=== PATIENT | male | born 1950 | race Caucasian/White ===

== ENCOUNTER → 2016-07-10 | Outpatient (CLI) | payer MEDICARE ==
[~2016-07-10] MED LIST: ADVA230A INH; ALBU17IN INH; ASPI1TAB PO; ATOR40TA PO; BENZ100C5 PO; BISO5TAB5 PO; FLON1SPR; HIZE20IN SC; KEPP1TAB2 PO; NEXI20CA PO; NITR4TASL SL; SING10TA32 PO; XYZA5TAB2 PO; ZOLP10TA2 PO
[2016-07-10 10:35] LABS: MEAN CORPUSCULAR HGB CONC 33.4 g/dl (32.0-36.5); MEAN CORPUSCULAR VOLUME 89.8 fl (80.0-96.0); RED CELL DISTRIBUTION WIDTH 13.6 % (11.5-14.5); WHITE BLOOD COUNT 7.1 K/mm3 (4.0-10.0)
[2016-07-10 11:07] LABS: ALBUMIN 3.3 GM/DL (3.2-5.2); ALBUMIN/GLOBULIN RATIO 0.92 (1.00-1.93); ALKALINE PHOSPHATASE 72 U/L (45-117); ALT/SGPT 31 U/L (12-78); ANION GAP 9 MEQ/L (8-16); AST/SGOT 29 U/L (15-37); BLOOD UREA NITROGEN 15 MG/DL (7-18); CALCIUM LEVEL 9.1 MG/DL (8.8-10.2); CARBON DIOXIDE LEVEL 27 MEQ/L (21-32); CHLORIDE LEVEL 108 MEQ/L (98-107); CHOLESTEROL LEVEL 122 MG/DL (<200); CREATININE FOR GFR 0.97 MG/DL (0.70-1.30); GLOMERULAR FILTRATION RATE > 60.0 (>49); GLUCOSE, FASTING 99 MG/DL (80-110); POTASSIUM SERUM 4.2 MEQ/L (3.5-5.1); SODIUM LEVEL 144 MEQ/L (136-145); TOTAL PROTEIN 6.9 GM/DL (6.4-8.2); TRIGLYCERIDES LEVEL 80 MG/DL (<150)
== END ==
LOC: M LAB 09:56
PROVIDERS: ATTEND Family Medicine
DX: R53.83 Other fatigue (principal); Z79.899 Other long term (current) drug therapy

== ENCOUNTER → 2016-09-21 | Outpatient (REF) | payer MEDICARE | LOC: M SFHCLERA 12:48 | PROVIDERS: ATTEND Nurse Practitioner Family | DX: R50.9 Fever, unspecified (principal) ==

== ENCOUNTER → 2016-09-21 | Outpatient (CLI) | payer MEDICARE ==
--- NOTE | 2016-09-21 14:09 | REP ---
CHEST X-RAY: Three views. HISTORY: Wheezing. COMPARISON STUDY: January 12, 2016. FINDINGS: There is a patchy area of increased density in the right middle lobe on today's radiograph consistent with infiltrate or discoid atelectasis. Lung webster are otherwise clear and unchanged. Pleural angles are sharp. Heart is not enlarged. An old healed fracture of the right clavicle is again seen. There are degenerative changes in the thoracic spine. IMPRESSION: Right middle lobe density compatible with infiltrate versus atelectasis. Signed by Tommie Ortega MD 09/21/2016 05:38 P
== END ==
LOC: M LRY 12:48
PROVIDERS: ATTEND Nurse Practitioner Family
DX: R06.2 Wheezing (principal)
CPT/HCPCS: 71020; 87880; 94640; G0463

== ENCOUNTER → 2016-10-21 | Outpatient (CLI) | payer MEDICARE ==
--- NOTE | 2016-10-21 12:33 | REP ---
REASON: History of pneumonia. COMPARISON: 09/21/2016 The patchy opacity in the right middle lobe has resolved. Mild basilar fibrotic change is noted status quo. Cardiomediastinal silhouette is unchanged. No new abnormal opacities have developed. There is no change in the osseous structures. IMPRESSION: No evidence of acute cardiopulmonary disease. Findings as described above. Signed by Manny Allison DO 10/21/2016 02:09 P
== END ==
LOC: M LRY 11:32
PROVIDERS: ATTEND Family Medicine
DX: J18.9 Pneumonia, unspecified organism (principal)

== ENCOUNTER → 2016-12-18 | Outpatient (CLI) | payer MEDICARE | LOC: M LRY 12:14 | PROVIDERS: ATTEND Physician Assistant Medical | DX: R56.9 Unspecified convulsions (principal) ==

== ENCOUNTER 2017-01-12 10:56 | Observation (INO) | payer MEDICARE ==
[~2017-01-12] VITALS: Ht 170.2 cm; Wt 87.7 kg
[~2017-01-12 10:56] MED LIST changes: -ATOR40TA PO; +ATOR40TA75 PO
--- NOTE | 2017-01-12 12:09 | REP ---
CT Head without contrast HISTORY: Infarction COMPARISON: 03/18/10 There is no intraparenchymal hemorrhage, acute infarct, mass or midline shift. The ventricular system is normal in appearance. The cortical sulci are dilated consistent with minimal volume loss. There is no extra cerebral collection. There is no fracture. The visualized sinuses are clear. IMPRESSION: Minimal volume loss. Signed by Danny Montague MD 01/12/2017 12:00 P
[2017-01-12 12:32] LABS: BASO # 0.1 K/mm3 (0.0-0.2); BASO % 0.7 % (0.0-1.0); EOS # 0.1 K/mm3 (0.0-0.50); EOS % 1.3 % (0.0-3.0); LARGE UNSTAINED CELL # 0.2 K/mm3 (0.0-0.4); LARGE UNSTAINED CELL % 2.6 % (0.0-4.0); LYMPH # 1.7 K/mm3 (1.5-4.5); LYMPH % 18.6 % (24.0-44.0); MEAN CORPUSCULAR HEMOGLOBIN 31.5 pg (27.0-33.0); MEAN CORPUSCULAR VOLUME 92.6 fl (80.0-96.0); MONO # 0.6 K/mm3 (0.0-0.8); MONO % 6.7 % (0.0-5.0); NEUTROPHILS # 6.5 K/mm3 (1.8-7.7); PLATELET COUNT, AUTOMATED 252 k/mm3 (150-450); RED CELL DISTRIBUTION WIDTH 13.5 % (11.5-14.5); WHITE BLOOD COUNT 9.3 K/mm3 (4.0-10.0)
[2017-01-12 12:38] LABS: ALBUMIN 3.3 GM/DL (3.2-5.2); ALBUMIN/GLOBULIN RATIO 0.79 (1.00-1.93); ALKALINE PHOSPHATASE 71 U/L (45-117); ALT/SGPT 37 U/L (12-78); ANION GAP 7 MEQ/L (8-16); AST/SGOT 29 U/L (15-37); BILIRUBIN,DIRECT 0.1 MG/DL (0.0-0.2); BILIRUBIN,TOTAL 0.6 MG/DL (0.2-1.0); BLOOD UREA NITROGEN 21 MG/DL (7-18); CALCIUM LEVEL 8.8 MG/DL (8.8-10.2); CARBON DIOXIDE LEVEL 28 MEQ/L (21-32); CHLORIDE LEVEL 106 MEQ/L (98-107); CREATININE FOR GFR 1.09 MG/DL (0.70-1.30); GLOMERULAR FILTRATION RATE > 60.0 (>49); GLUCOSE, FASTING 100 MG/DL (80-110); POTASSIUM SERUM 3.2 MEQ/L (3.5-5.1); SODIUM LEVEL 141 MEQ/L (136-145); TOTAL PROTEIN 7.5 GM/DL (6.4-8.2)
--- NOTE | 2017-01-12 12:50 | REP ---
Clinical: Cough . Comparison: 10/21/2016 . Findings: The mediastinum and cardiac silhouette are stable and within normal limits for portable technique. The lung webster are clear without acute consolidation, effusion, or pneumothorax. Skeletal structures are intact. Impression: No acute cardiopulmonary process appreciated. Signed by Bill Quezada MD 01/12/2017 12:41 P
[2017-01-12] MEDS ORDERED: POTASSIUM CHLORIDE 10 MEQ SR TABLET PO ONE (13:15)
--- NOTE | 2017-01-12 16:30 | REP ---
MRI BRAIN WITHOUT CONTRAST: HISTORY: Weakness. COMPARISON: MR 04/03/[address] 01/12/2017. Scattered punctate areas of increased signal intensity on T2 weighted images are present i nt periventricular and subcortical white matter. This represents small vessel ischemic disease. There is no intraparenchymal hemorrhage, infarct, mass or midline shift. The ventricular system is normal in appearnace. The cortical sulci are dilated consistent with minimal volume loss. There is no extracerebral collection. The sinuses are clear. IMPRESSION:1. Minimal small vessel ischemic disease. 2. Minimal volume loss. Signed by Danny Montague MD 01/15/2017 08:13 A
[2017-01-12] MEDS ORDERED: TERB250T12 PO (18:13)
[2017-01-12] MEDS ORDERED: LEVE750XR PO (18:13)
[2017-01-12] MEDS ORDERED: MAGN400T PO (18:13)
[2017-01-12] MEDS ORDERED: BENZ100C5 PO (18:13)
[2017-01-12] MEDS ORDERED: VITMTA PO (18:13)
[2017-01-12] MEDS ORDERED: PLAV1TAB2 PO (18:13)
[2017-01-12] MEDS ORDERED: MAGNESIUM OXIDE 400 MG TAB (MAG-OX) PO ONE (18:15)
[2017-01-12] MEDS ORDERED: ALBUTEROL 90 MCG/ACT 8GM HFA INHALER INH PRN (18:30)
[2017-01-12] MEDS ORDERED: NITROGLYCERIN 0.4 MG SUBL TABLET SL PRN (18:30)
[2017-01-12] MEDS ORDERED: zolPIDEM TARTRATE 10MG TAB PO PRN (18:30)
--- NOTE | 2017-01-12 20:08 | HPE ---
DATE OF ADMISSION: 01/12/2017 CHIEF COMPLAINT: 66-year-old gentleman coming in complaining of "off balance" and "quiet in his head". HISTORY OF PRESENT ILLNESS: This is a 66-year-old gentleman with significant past medical history of coronary artery disease, sees Dr. Potter. History of seizures in the past. Normally sees Dr. Sheldon with comorbidities of immunodeficiency, he is on Hizentra injection, history of asthma, chronic cough, gastroesophageal reflux disease (GERD), who presents complaining of being "off balance", fatigue and "having a quiet in his head" with two episodes, one two days ago and the second episode early this morning while he was having breakfast. The patient denies dizziness but had described this discomfort as lightheadedness and "his head felt weird". The patient felt fatigued and felt that he may have had some shakes, but denies any prodrome such as fever, chills, abdominal pain, diarrhea or dysuria. Although, he did have an episode of feeling like he was going to lose his bowel this morning when he had the episode, but he did not. He did have some nausea, but no vomiting. He has chronic cough and sputum production which is unchanged. The patient denies having any precipitating factors such as chest pain, shortness of breath, headache. He did have a history of pneumonia two months ago. Currently not on any antibiotics other than antifungal medication for nail fungus. The patient's family mentioned that he has been on this medication in the past for a year, did well, but unfortunately he had to resume recently. The patient states that this occurred for about an hour, these two episodes. The patient was evaluated in the emergency room and noted to have slightly elevated nonspecific positive troponin 0.11, which was unchanged after [address] Potter was consulted by the ER physician who recommended admission to the hospital for further evaluation and serial cardiac enzymes. Otherwise, did not recommend transfer or catheterization at this time. I have confirmed this with Dr. Caldera who is interrelated special education teacher currently. The patient's head CT was negative for any acute process and MRI done also did not show any significant findings. The patient is being admitted for further evaluation and treatment. REVIEW OF SYSTEMS: 10 point review of system is negative other than those described in the HPI. PAST MEDICAL HISTORY: Significant for coronary artery disease, sees Dr. Potter as outpatient. Seizure history. Sees Dr. Sheldon as an outpatient. Immunodeficiency. On therapy. History of asthma and chronic cough. Gastroesophageal reflux disease. PAST SURGICAL HISTORY: Includes: Cholecystectomy. Hernia repair. Nasal surgery. SOCIAL HISTORY: The patient denies smoking or IV drug abuse. Socially he drinks alcohol but not dependent on them. FAMILY MEDICAL HISTORY: Noncontributory at this time. ALLERGIES: The patient has allergies to Demerol which causes sweating and vomiting. HOME MEDICATIONS: - albuterol 2 puffs four times a day as needed for shortness of breath - aspirin 81 mg by mouth daily - atorvastatin 40 mg at bedtime - benzonatate 100 mg by mouth three times a day as needed for cough - benzonatate 100 mg by mouth at bedtime - bisoprolol 5 mg by mouth daily - Plavix 75 mg by mouth daily - Nexium 20 mg by mouth twice a day - Flonase 2 sprays at bedtime - Hizentra 16 mg subcutaneous every 10 days - Keppra 750 mg by mouth twice a day - Xyzal by mouth 5 mg at bedtime - magnesium oxide 800 mg by mouth daily - montelukast Singulair 10 mg at bedtime - multivitamin 1 tablet by mouth daily - nitroglycerin 0.4 mg every 5 minutes as needed for chest pain - Advair 230/21 mcg 2 puffs twice a day - terbinafine 250 mg by mouth daily - Zolpidem 10 mg by mouth at bedtime as needed for sleep PHYSICAL EXAMINATION: VITAL SIGNS: Last known temperature 97.6, last heart rate of 59. Saturating 92 to 97%. Blood pressure, last known is 138/77, respiratory rate on my examination is 14. HEENT: Normocephalic, no trauma. Examination of the eyes, nose and throat is within normal limits. Pupils equal, round, and reactive to light and accommodation. Mucous is moist. Neck is supple. No tracheal deviation. CARDIAC: S1, S2. Regular rate and rhythm. Pulses present. LUNGS: Equal air entry. Did not hear any wheezes, rales or rhonchi. ABDOMEN: Soft, nontender. Bowel sounds present. LOWER EXTREMITIES: No significant pitting edema. Capillary refill present in all four extremities. SKIN: Intact. Warm to touch. Afebrile. The patient is currently awake, alert, oriented times three. Cranial nerves grossly intact. Motor and sensory is intact. Normal mood and affect for current situation. Family member at the bedside and he is also hard of hearing. DIAGNOSTIC STUDIES: The patient had WBC, hemoglobin and hematocrit and platelets all within normal. Complete metabolic profile within normal, except potassium 3.2, BUN of 21. Lipase is normal. Cardiac enzyme is within normal except for troponin of 0.11 and repeat troponin is 0.11 as well. CRP is pending at this time. Magnesium is within normal. Urinalysis is pending at this time. Microbiology: Urine culture is pending. The patient had CT of the head, as per radiology showed minimal volume loss, but there is no intraparenchymal hemorrhage, acute infarct, mass or midline shift. The ventricular system is normal in appearance. The cortical sulci are dilated consistent with minimal volume loss. There is no extracerebral collection. There is no fracture. The visualized sinuses are clear as well. The patient also had a chest x-ray, as per radiology showed no acute cardiopulmonary process. The patient also had an MRI of the brain which showed as per radiology, minimal small vessel ischemic disease. Minimal volume loss. The patient's EKG showed heart rate of 54, sinus bradycardia without any ST elevation. ASSESSMENT AND PLAN: This is a 66-year-old gentleman with significant past medical history of coronary artery disease, normally follows up with Dr. Potter as outpatient. History of seizures, normally follows up with Dr. Sheldon as outpatient. Immunodeficiency and takes immunoglobulin for cause unknown at this time who has comorbidities of asthma, chronic cough and GERD, recently treated for pneumonia two months ago and currently on terbinafine for fungal nail infection who presented complaining of two episodes of feeling unwell, described it as "feeling weird and quiet in his head and being off balance". These symptoms occurred twice and currently the patient is asymptomatic. 1. Feeling off balance, quiet in his head, weakness. No clear cause. Nonspecific positive troponin. I did speak to Dr. Caldera who is covering for Dr. Potter at this time and discussed the case. He also recommends just serial cardiac enzymes and outpatient followup with Dr. Potter once discharged from the hospital. I have also spoken to Dr. Josue the neurologist. He does not think that this is an atypical migraine. The patient's CT head is negative. MRI is negative. A chest x-ray is negative. I did order a UA along with TSH, along with coagulation studies for further evaluation. The patient will be on telemetry. Will get serial cardiac enzymes and echocardiogram for further evaluation. In addition, hold the terbinafine for now. Will continue to monitor. 2. Coronary artery disease with history of nonspecific positive troponin. Again, I have spoken to Dr. Caldera who recommended serial cardiac enzyme and once enzymes are within similar nonspecific range, the patient may be discharged and followup with Dr. Potter as outpatient. In the interim will place him on telemetry again and get serial cardiac enzyme and echocardiogram for further evaluation. At this time, the patient denies any chest pain and EKG did not show any ST elevation. 3. History of seizure. The patient is currently on Keppra. Will resume Keppra and followup with Dr. Childers as outpatient. 4. History of immunodeficiency. Followup with physician prescribing Hizentra. 5. Hypokalemia. We will replace and monitor. Will monitor a magnesium level as well and replace as necessary. Resume his home medication for magnesium supplementation. 6. Asthma. Chronic cough. Stable. The patient is saturating well. Resume his home respiratory treatment regimen. 7. Gastroesophageal reflux disease (GERD). Resume Nexium of home regimen. 8. Insomnia. Will hold Zolpidem as needed to see if that helps with his unusual complaint. 9. Deep venous thrombosis (DVT) prophylaxis.
[2017-01-12 20:30] VITALS: BP 140/75
[2017-01-12] MEDS: ADVAIR HFA 230/21MCG INHALER INH SCH ×2 (20:49→23:56)
--- NOTE | 2017-01-12 20:59 | ECGEPIP ---
Stationary ECG Study [facility] - ED Test Date: 2017-01-12 Pat Name: TATUM OYST Department: Room: - Gender: M Service Rig Operator: tk : 1950 Requested By: Darius Mejia Order Number: [id number] Reading MD: Fiona Pond Measurements Intervals [place] Rate: 54 P: 50 ID: [id number] QRS: 10 QRSD: 112 T: 33 QT: 459 QTc: 437 Interpretive Statements SINUS BRADYCARDIA INDETERMINATE AXIS ANTEROLATERAL MYOCARDIAL INFARCTION, OF INDETERMINATE AGE Electronically Signed On 01-12-2017 20:58:49 EDT by Fiona Pond
[2017-01-12] MEDS ORDERED: ACETAMINOPHEN TAB 650MG DOSE (2X325MG) PO ONE (21:00)
[2017-01-12] MEDS: HEPARIN SOD (PORCINE) 5000 UNITS/ML VIAL SC SCH (21:08)
[2017-01-12] MEDS: MONTELUKAST 10 MG TAB PO SCH (21:08)
[2017-01-12] MEDS: ATORVASTATIN 20 MG TAB PO SCH (21:08)
[2017-01-12] MEDS: levETIRAcetam **XR** 750MG TABLET (KEPPRA XR) PO SCH (21:24)
[2017-01-12] MEDS: PANTOPRAZOLE 20 MG TAB PO SCH (21:24)
[2017-01-12] MEDS: FLUTICASONE PROP 0.05% NASAL SPRAY 16 GM (FLONASE) SCH (22:19)
[2017-01-12 23:56] VITALS: O2SAT 94
[2017-01-12 23:59] VITALS: BP 124/78
[2017-01-13 04:12] LABS: MEAN CORPUSCULAR HEMOGLOBIN 31.7 pg (27.0-33.0); MEAN CORPUSCULAR HGB CONC 34.6 g/dl (32.0-36.5); MEAN CORPUSCULAR VOLUME 91.5 fl (80.0-96.0); RED CELL DISTRIBUTION WIDTH 13.8 % (11.5-14.5); WHITE BLOOD COUNT 8.2 K/mm3 (4.0-10.0)
[2017-01-13 04:36] LABS: ANION GAP 7 MEQ/L (8-16); BLOOD UREA NITROGEN 15 MG/DL (7-18); CALCIUM LEVEL 8.8 MG/DL (8.8-10.2); CARBON DIOXIDE LEVEL 28 MEQ/L (21-32); CHLORIDE LEVEL 106 MEQ/L (98-107); CREATININE FOR GFR 1.03 MG/DL (0.70-1.30); GLOMERULAR FILTRATION RATE > 60.0 (>49); GLUCOSE, FASTING 109 MG/DL (80-110); MAGNESIUM LEVEL 2.2 MG/DL (1.8-2.4); POTASSIUM SERUM 4.5 MEQ/L (3.5-5.1); SODIUM LEVEL 141 MEQ/L (136-145); T UPTAKE 37 % (33-40); THYROXINE (T4) 9.5 UG/DL (4.5-12.0)
[2017-01-13 04:45] VITALS: BP 98/55
[2017-01-13] MEDS: HEPARIN SOD (PORCINE) 5000 UNITS/ML VIAL SC SCH ×3 (05:57→21:02)
[2017-01-13 08:00] VITALS: BP 111/77
[2017-01-13] MEDS: MAGNESIUM OXIDE 400 MG TAB (MAG-OX) PO SCH (08:19)
[2017-01-13] MEDS: CLOPIDOGREL 75 MG TAB PO SCH (08:19)
[2017-01-13] MEDS: PANTOPRAZOLE 20 MG TAB PO SCH ×2 (08:19→20:37)
[2017-01-13] MEDS: levETIRAcetam **XR** 750MG TABLET (KEPPRA XR) PO SCH ×2 (08:20→20:37)
[2017-01-13] MEDS: ASPIRIN 81 MG ENTERIC TAB PO SCH (08:20)
[2017-01-13] MEDS: BISOPROLOL FUMARATE 5 MG TAB PO SCH (08:20)
[2017-01-13] MEDS: MULTIVITAMINS/MINERALS THERAP 1 TAB PO SCH (08:20)
[2017-01-13] MEDS: ADVAIR HFA 230/21MCG INHALER INH SCH ×2 (09:00→20:11)
[2017-01-13 12:00] VITALS: BP 121/76
--- NOTE | 2017-01-13 14:41 | ECHO ---
DATE OF STUDY: 01/13/2017 REFERRING PHYSICIAN: Dr. Rachel Franz HEIGHT: 67 inches WEIGHT: 187 pounds INDICATION: Abnormal ECG, abnormal troponin I, history of myocardial infarction (old PR). 2D MEASUREMENTS: Aortic root: 3.8 cm Proximal ascending aorta: 3.7 cm Left atrium: 3.8 cm Left ventricle diastole: 4.2 cm Left ventricle outflow tract dimension: 2.1 cm Ventricular septum: 1.5 cm Posterior wall: 1.11 cm DOPPLER MEASUREMENTS: Aortic valve velocity: 136 cm/s LVOT velocity: 141 cm/s LVOT VTI: 30.5 cm Mitral E velocity: 62.7 cm/s Mitral A velocity: 75.0 cm/s Mitral deceleration time: 267 ms Pulmonary artery systolic pressure: 33 mmHg (pulmonary acceleration time method). MITRAL ANNULAR TISSUE DOPPLER: E prime lateral: 8.7 cm/s E prime septal: 5.0 cm/s DESCRIPTION: Rhythm was sinus bradycardia. Image quality was fair. No pericardial effusion. This is a 2D, M-mode, color flow Doppler, and pulse wave Doppler examination including mitral annular tissue Doppler. CONCLUSIONS: 1. Mild hypertrophy of the interventricular septum. Normal left ventricular (LV ) internal dimensions. Normal LV wall motion and wall thickening. No regional wall motion abnormalities. Normal LV systolic function. Left ventricular ejection fraction (LVEF) of 65% by visual estimate. 2. Grade 1 LV diastolic dysfunction (impaired relaxation filling pattern). 3. Very mild dilatation of the aortic root at the level of the sinus of Valsalva. Proximal ascending aorta was at the upper limits of normal in size ( tubular portion) of the proximal ascending aorta. 4. Mild aortic valve sclerosis with a three-cusp aortic valve. 5. Suggestive of mild elevation of pulmonary artery systolic pressure. 6. Very small pericardial effusion. MTDD
--- NOTE | 2017-01-13 15:31 | IPN ---
DATE: 01/13/2017 SUBJECTIVE: The patient is seen and examined in the room today. The patient states he still feels "quietness" in his head. The patient is complaining of intermittent generalized whole body shaking, and the patient has continued to experience generalized unwellness and discomfort but he cannot really describe it. OBJECTIVE: VITAL SIGNS: Temperature is 98.3, pulse is 72, respirations 18, blood pressure 111/77, pulse oximetry 94% on room air. GENERAL: No sign of acute distress. Alert and oriented times three. HEENT: Normocephalic, atraumatic. Extraocular motor grossly intact. CARDIOVASCULAR: Positive S1, S2. Regular rate. LUNGS: Clear to auscultation bilaterally. ABDOMEN: Soft, nontender, nondistended. Bowel sounds present. No rebound, no guarding. EXTREMITIES: No edema, no sign of cyanosis. LABORATORY DATA: WBC is 8.2, hemoglobin 15.5, hematocrit 44.8, platelet count 256. Sodium is 141, potassium 4.5, chloride 106, carbon dioxide 28, BUN 15, creatinine 1.03, GFR greater than 60, fasting glucose of 109, calcium 8.8, magnesium 2.2. Total CK is 62, troponin 0.1 times four sets. T4 is 9.3. MICROBIOLOGY: Urine culture is negative. ASSESSMENT AND PLAN: 1. Generalized discomfort with poor balance. The patient was evaluated by the physical therapy for patient's functional status. MRI and CT of the brain were completed and benign. I had a chance to talk to neurology, Dr. Josue. He does not feel the patient has any neurological causes of his current general symptoms. We will follow with a Keppra level. The only significant clue for patient's acute symptoms is recent antifungal use for his fungal toenail. The medication has been discontinued for now. 2. History of coronary artery disease with a history of nonspecific positive troponin. Serial troponin was obtained, and it has remained at 0.11. Continue to monitor on telemetry. 3. History of seizure. The patient had been taking Keppra. The patient follows with neurology in the outpatient setting. As per Dr. Josue, the patient can followup as outpatient after discharge. 4. Hypokalemia. After supplement, potassium level improved. 5. History of asthma. Currently does not have any exacerbation. 6. Gastrointestinal (GI) prophylaxis on Nexium. 7. Insomnia. Ambien on hold. 8. Deep venous thrombosis (DVT) prophylaxis. On heparin.
[2017-01-13 16:00] VITALS: BP 105/73
[2017-01-13 20:00] VITALS: BP 114/69
[2017-01-13] MEDS: ATORVASTATIN 20 MG TAB PO SCH (20:37)
[2017-01-13] MEDS: MONTELUKAST 10 MG TAB PO SCH (20:37)
[2017-01-13] MEDS: FLUTICASONE PROP 0.05% NASAL SPRAY 16 GM (FLONASE) SCH (20:43)
[2017-01-13 23:59] VITALS: BP 103/61
[2017-01-14 04:45] VITALS: BP 106/71
[2017-01-14] MEDS: HEPARIN SOD (PORCINE) 5000 UNITS/ML VIAL SC SCH (05:12)
[2017-01-14 05:32] LABS: MEAN CORPUSCULAR HEMOGLOBIN 31.4 pg (27.0-33.0); MEAN CORPUSCULAR HGB CONC 34.2 g/dl (32.0-36.5); MEAN CORPUSCULAR VOLUME 91.9 fl (80.0-96.0); RED CELL DISTRIBUTION WIDTH 13.9 % (11.5-14.5); WHITE BLOOD COUNT 9.4 K/mm3 (4.0-10.0)
[2017-01-14 05:53] LABS: ANION GAP 4 MEQ/L (8-16); BLOOD UREA NITROGEN 17 MG/DL (7-18); CARBON DIOXIDE LEVEL 29 MEQ/L (21-32); CHLORIDE LEVEL 111 MEQ/L (98-107); CREATININE FOR GFR 0.91 MG/DL (0.70-1.30); GLOMERULAR FILTRATION RATE > 60.0 (>49); GLUCOSE, FASTING 111 MG/DL (80-110); POTASSIUM SERUM 4.5 MEQ/L (3.5-5.1); SODIUM LEVEL 144 MEQ/L (136-145)
[2017-01-14] MEDS: MULTIVITAMINS/MINERALS THERAP 1 TAB PO SCH (07:53)
[2017-01-14] MEDS: ASPIRIN 81 MG ENTERIC TAB PO SCH (07:53)
[2017-01-14] MEDS: CLOPIDOGREL 75 MG TAB PO SCH (07:53)
[2017-01-14] MEDS: levETIRAcetam **XR** 750MG TABLET (KEPPRA XR) PO SCH (07:53)
[2017-01-14] MEDS: PANTOPRAZOLE 20 MG TAB PO SCH (07:53)
[2017-01-14 07:54] VITALS: BP 109/73
[2017-01-14] MEDS: BISOPROLOL FUMARATE 5 MG TAB PO SCH (07:54)
[2017-01-14] MEDS: MAGNESIUM OXIDE 400 MG TAB (MAG-OX) PO SCH (07:54)
[2017-01-14] MEDS: ADVAIR HFA 230/21MCG INHALER INH SCH (07:57)
[2017-01-14 08:00] VITALS: BP 109/73
[2017-01-14 08:26] LABS: ALBUMIN 3.1 GM/DL (3.2-5.2); ALBUMIN/GLOBULIN RATIO 0.84 (1.00-1.93); BILIRUBIN,DIRECT 0.2 MG/DL (0.0-0.2); BILIRUBIN,TOTAL 0.8 MG/DL (0.2-1.0); TOTAL PROTEIN 6.8 GM/DL (6.4-8.2)
--- NOTE | 2017-01-14 16:50 | DSES ---
DATE OF ADMISSION: 01/12/2017 DATE OF DISCHARGE: 01/14/2017 PRIMARY CARE PROVIDER: Dr. Campbell CONSULTANTS: None. PROCEDURES: None. COMPLICATIONS: None. ADMISSION/DISCHARGE DIAGNOSES: 1. Generalized discomfort with poor balance. 2. History of coronary artery disease with history of nonspecific positive troponin. 3. Seizure. 4. Hypokalemia. 5. Asthma. 6. Insomnia. HOSPITALIZATION COURSE: The patient is a 66-year-old male who presented to [facility] on 01/12/2017 complaining about poor balance and "quietness" in his head. The patient could not really describe his physical complaints. On the day of admission, the patient was found to have mildly elevated troponin. The patient was admitted to progressive care unit (PCU) under observation status. The patient's medications are being adjusted. Multiple medications were on hold. With medical management, the patient's symptoms showed spontaneous improvement. On 01/12/2017, the patient cleared by physical therapy (PT) for discharge. OBJECTIVE: VITAL SIGNS: Temperature 98.2, pulse is 64, respirations 18, blood pressure 109/73, pulse oximetry 96% on room air. LABORATORY DATA: WBC is 9.4, hemoglobin 14.6, hematocrit 42.7, platelet count is 227. Sodium is 144, potassium 4.5, chloride is 111, carbon dioxide 29, BUN 17, creatinine 0.91, GFR greater than 60, fasting glucose 111, calcium is 9, total bilirubin is 0.8, direct bilirubin is 0.2, AST 22, ALT 30, alkaline phosphatase 58, ammonia level 13, total protein 6.8, albumin 3.1. UA is negative. Microbiology: Urine culture is negative. IMAGING STUDIES: CT of the head without contrast on 01/12/2017 showed minimal volume loss. Chest x-ray on 01/12/2017 showed no acute cardiopulmonary process. MRI of the brain without contrast on 01/12/2017 showed minimal small vessel ischemic disease. Minimal volume loss. DISCHARGE MEDICATIONS: - Ventolin two puff inhalation four times a day as needed - aspirin 81 mg by mouth daily - atorvastatin 40 mg by mouth at night - benzonatate 100 mg by mouth three times a day as needed for cough - bisoprolol 5 mg by mouth daily - Plavix 75 mg by mouth daily - Nexium 20 mg by mouth twice a day - insulin subcutaneously as directed - levetiracetam 750 mg by mouth twice a day - Xyzal 5 mg by mouth at night - magnesium oxide 800 mg by mouth daily - Singulair 100 mg by mouth at night - multivitamin one tablet by mouth daily - nitroglycerin 0.4 mg sublingual every 5 minutes as needed for chest pain - Advair Diskus two puff inhalation twice a day - Zolpidem 10 mg by mouth at night as needed for sleep DISCHARGE INSTRUCTIONS: Discontinue line. Discharge home. Activity as tolerated. Diet as tolerated. The patient should followup with primary care provider, Dr. Campbell, in 7 to 10 days. Discharge condition: Stable. Discharge time: Greater than 30 minutes.
== END 2017-01-14 10:14 | disposition home or self-care (01) ==
LOC: M ED 10:56 → M ED INP 17:54 → M PCU 20:28
PROVIDERS: ADMIT Internal Medicine; ATTEND Internal Medicine
DX: E87.8 Other disorders of electrolyte and fluid balance, not elsewhere classified (principal); R52 Pain, unspecified; I25.10 Atherosclerotic heart disease of native coronary artery without angina pectoris; R56.9 Unspecified convulsions; E87.6 Hypokalemia; K21.9 Gastro-esophageal reflux disease without esophagitis; J45.909 Unspecified asthma, uncomplicated; G47.00 Insomnia, unspecified; Z79.82 Long term (current) use of aspirin; Z79.899 Other long term (current) drug therapy
CPT/HCPCS: 36415; 70450; 70551; 71010; 80048; 80076; 80180; 81001; 82140; 82550; 82553; 83690; 83735; 84436; 84443; 84479; 84484; 85025; 85027; 85610; 85652; 86140; 87086; 93005; 93041; 93306; 94640; 94760; 96372; 97162; 99285; G0378; G8978; G8979; G8980

== ENCOUNTER → 2017-02-27 | Outpatient (CLI) | payer MEDICARE ==
[~2017-02-27] MED LIST changes: +LEVE750XR PO; +MAGN400T PO; +PLAV1TAB2 PO; +TERB250T12 PO; +VITMTA PO
[2017-02-27 13:31] LABS: BASO % 0.4 % (0.0-1.0); EOS # 0.2 K/mm3 (0.0-0.50); EOS % 2.4 % (0.0-3.0); LARGE UNSTAINED CELL # 0.2 K/mm3 (0.0-0.4); LARGE UNSTAINED CELL % 2.1 % (0.0-4.0); LYMPH # 2.1 K/mm3 (1.5-4.5); LYMPH % 22.1 % (24.0-44.0); MEAN CORPUSCULAR HEMOGLOBIN 31.2 pg (27.0-33.0); MEAN CORPUSCULAR HGB CONC 33.8 g/dl (32.0-36.5); MEAN CORPUSCULAR VOLUME 92.5 fl (80.0-96.0); MONO # 0.7 K/mm3 (0.0-0.8); MONO % 7.9 % (0.0-5.0); NEUTROPHILS # 5.6 K/mm3 (1.8-7.7); NEUTROPHILS % 65.1 % (36.0-66.0); PLATELET COUNT, AUTOMATED 244 k/mm3 (150-450); RED CELL DISTRIBUTION WIDTH 13.2 % (11.5-14.5); WHITE BLOOD COUNT 8.6 K/mm3 (4.0-10.0)
[2017-02-27 13:36] LABS: ANION GAP 10 MEQ/L (8-16); BLOOD UREA NITROGEN 17 MG/DL (7-18); CALCIUM LEVEL 8.6 MG/DL (8.8-10.2); CARBON DIOXIDE LEVEL 27 MEQ/L (21-32); CHLORIDE LEVEL 108 MEQ/L (98-107); CREATININE FOR GFR 0.97 MG/DL (0.70-1.30); GLOMERULAR FILTRATION RATE > 60.0 (>49); GLUCOSE, FASTING 84 MG/DL (80-110); IMMUNOGLOBULIN G 1410 MG/DL (681-1648); POTASSIUM SERUM 4.3 MEQ/L (3.5-5.1); SODIUM LEVEL 145 MEQ/L (136-145)
== END ==
LOC: M SMT 10:02
PROVIDERS: ATTEND Nurse Practitioner Family
DX: D83.9 Common variable immunodeficiency, unspecified (principal)

== ENCOUNTER → 2017-05-23 | Outpatient (REF) | payer MEDICARE ==
[2017-05-23 18:30] LABS: BASO % 0.4 % (0.0-1.0); EOS # 0.3 10^3/uL (0.0-0.50); EOS % 5.9 % (0.0-3.0); IMMATURE GRANULOCYTE % 0.4 % (0-0); LYMPH # 1.2 10^3/uL (1.5-4.5); LYMPH % 27.1 % (24.0-44.0); MEAN CORPUSCULAR HEMOGLOBIN 29.6 pg (27.0-33.0); MEAN CORPUSCULAR HGB CONC 32.5 g/dl (32.0-36.5); MEAN CORPUSCULAR VOLUME 90.9 fl (80.0-96.0); MONO # 0.9 10^3/uL (0.0-0.8); MONO % 20.3 % (0.0-5.0); NEUTROPHILS # 2.1 10^3/uL (1.8-7.7); NEUTROPHILS % 45.9 % (36.0-66.0); PLATELET COUNT, AUTOMATED 274 10^3/uL (150-450); RED CELL DISTRIBUTION WIDTH 13.4 % (11.5-14.5); WHITE BLOOD COUNT 4.6 10^3/uL (4.0-10.0)
[2017-05-23 19:30] LABS: ERYTHROCYTE SEDIMENTATION RATE 11 mm/hr (0-20)
[2017-05-27 00:06] LABS: SJOGREN'S ANTI SS-A 0.3 AI (0.0-0.9); SJOGREN'S ANTI SS-B <0.2 AI (0.0-0.9)
== END ==
LOC: M LABNEURO 15:56
PROVIDERS: ATTEND Physician Assistant Medical
DX: R56.9 Unspecified convulsions (principal); M25.50 Pain in unspecified joint

== ENCOUNTER → 2017-05-30 | Outpatient (REF) | payer MEDICARE | LOC: M SFHCLERA 15:20 | PROVIDERS: ATTEND Nurse Practitioner Family | DX: R50.9 Fever, unspecified (principal) ==

== ENCOUNTER → 2017-05-30 | Outpatient (CLI) | payer MEDICARE ==
--- NOTE | 2017-05-30 16:17 | REP ---
Clinical: Fever . Comparison: 10/21/2016 . Technique: PA and lateral. Findings: The mediastinum and cardiac silhouette are normal. The lung webster are clear and without acute consolidation, effusion, or pneumothorax. The skeletal structures are intact and normal. Impression: 1. No acute cardiopulmonary process. Signed by Bill Quezada MD 05/30/2017 04:08 P
--- NOTE | 2017-05-30 16:18 | REP ---
Clinical: Epigastric and abdominal pain. Technique: Upright view of the chest with supine and upright views of the abdomen and pelvis. Findings: Frontal upright view of the chest demonstrates chronic basilar interstitial changes and no acute cardiopulmonary process or free air below the diaphragm to suspect pneumoperitoneum. Supine and upright views of the abdomen and pelvis demonstrate nonspecific bowel gas pattern without obstruction or perforation. No organomegaly. Prior cholecystectomy and ventral hernia repair. No abnormal calcifications. Skeletal structures normal for age. Impression: Nonspecific bowel gas pattern. Signed by Bill Quezada MD 05/30/2017 04:09 P
[2017-05-30 21:36] LABS: BASO % 0.4 % (0.0-1.0); EOS # 0.2 10^3/uL (0.0-0.50); EOS % 3.5 % (0.0-3.0); IMMATURE GRANULOCYTE % 0.4 % (0-0); LYMPH # 1.6 10^3/uL (1.5-4.5); LYMPH % 27.9 % (24.0-44.0); MEAN CORPUSCULAR HEMOGLOBIN 29.3 pg (27.0-33.0); MEAN CORPUSCULAR HGB CONC 32.5 g/dl (32.0-36.5); MEAN CORPUSCULAR VOLUME 90.1 fl (80.0-96.0); MONO # 1.2 10^3/uL (0.0-0.8); MONO % 21.3 % (0.0-5.0); NEUTROPHILS # 2.7 10^3/uL (1.8-7.7); NEUTROPHILS % 46.5 % (36.0-66.0); PLATELET COUNT, AUTOMATED 312 10^3/uL (150-450); RED CELL DISTRIBUTION WIDTH 13.1 % (11.5-14.5); WHITE BLOOD COUNT 5.7 10^3/uL (4.0-10.0)
[2017-05-30 21:47] LABS: ALBUMIN 3.1 GM/DL (3.2-5.2); ALKALINE PHOSPHATASE 58 U/L (45-117); ALT/SGPT 27 U/L (12-78); ANION GAP 7 MEQ/L (8-16); AST/SGOT 30 U/L (7-37); BILIRUBIN,TOTAL 0.9 MG/DL (0.2-1.0); BLOOD UREA NITROGEN 11 MG/DL (7-18); CALCIUM LEVEL 8.7 MG/DL (8.8-10.2); CARBON DIOXIDE LEVEL 29 MEQ/L (21-32); CHLORIDE LEVEL 105 MEQ/L (98-107); CREATININE FOR GFR 0.82 MG/DL (0.70-1.30); GLOMERULAR FILTRATION RATE > 60.0 (>49); GLUCOSE, FASTING 92 MG/DL (80-110); POTASSIUM SERUM 4.3 MEQ/L (3.5-5.1); SODIUM LEVEL 141 MEQ/L (136-145); TOTAL PROTEIN 6.2 GM/DL (6.4-8.2)
[2017-06-03 00:06] LABS: Lyme Disease IgG/IgM Antibodie <0.91 ISR (0.00-0.90); Lyme Disease IgM Ab Quantitati <0.80 index (0.00-0.79)
== END ==
LOC: M LRY 15:36
PROVIDERS: ATTEND Nurse Practitioner Family
DX: R50.9 Fever, unspecified (principal); R53.81 Other malaise; R53.83 Other fatigue; J02.9 Acute pharyngitis, unspecified; Z79.899 Other long term (current) drug therapy
CPT/HCPCS: 71010; 74022; 80053; 83880; 85025; 86617; 87804; 87880; G0463

== ENCOUNTER → 2017-11-20 | Outpatient (CLI) | payer MEDICARE | LOC: M SMT PRO 08:42 | DX: C61 Malignant neoplasm of prostate (principal); R97.20 Elevated prostate specific antigen [PSA] | CPT/HCPCS: G0416 ==

== ENCOUNTER 2017-11-23 20:35 | Inpatient (IN) | payer MEDICARE ==
[2017-11-23 21:11] LABS: BASO % 0.2 % (0.0-1.0); EOS # 0.2 10^3/uL (0.0-0.50); EOS % 2.5 % (0.0-3.0); HEMATOCRIT 43.3 % (42.0-52.0); HEMOGLOBIN 14.5 g/dl (13.5-17.5); IMMATURE GRANULOCYTE % 0.5 % (0-3.0); LYMPH # 2.1 10^3/uL (1.5-4.5); LYMPH % 25.2 % (24.0-44.0); MEAN CORPUSCULAR HEMOGLOBIN 29.2 pg (27.0-33.0); MEAN CORPUSCULAR HGB CONC 33.5 g/dl (32.0-36.5); MEAN CORPUSCULAR VOLUME 87.1 fl (80.0-96.0); MONO # 0.9 10^3/uL (0.0-0.8); MONO % 10.6 % (0.0-5.0); NEUTROPHILS # 5.1 10^3/uL (1.8-7.7); PLATELET COUNT, AUTOMATED 233 10^3/uL (150-450); RED BLOOD COUNT 4.97 10^6/uL (4.30-6.10); RED CELL DISTRIBUTION WIDTH 14.4 % (11.5-14.5); WHITE BLOOD COUNT 8.4 10^3/uL (4.0-10.0)
[2017-11-23 21:39] LABS: PARTIAL THROMBOPLASTIN TIME 25.3 SECONDS (26.8-37.9); PROTHROMBIN TIME 13.3 SECONDS (12.4-14.5)
[2017-11-23 21:53] LABS: ALBUMIN 3.3 GM/DL (3.2-5.2); ALBUMIN/GLOBULIN RATIO 0.94 (1.00-1.93); ALKALINE PHOSPHATASE 71 U/L (45-117); ALT/SGPT 24 U/L (12-78); ANION GAP 7 MEQ/L (8-16); AST/SGOT 23 U/L (7-37); BILIRUBIN,DIRECT 0.2 MG/DL (0.0-0.2); BILIRUBIN,TOTAL 0.7 MG/DL (0.2-1.0); BLOOD UREA NITROGEN 14 MG/DL (7-18); CALCIUM LEVEL 8.3 MG/DL (8.8-10.2); CARBON DIOXIDE LEVEL 26 MEQ/L (21-32); CHLORIDE LEVEL 110 MEQ/L (98-107); CPK CREATINE PHOSPHOKINASE 71 U/L (39-308); FREE T4 1.14 NG/DL (0.76-1.46); GLOMERULAR FILTRATION RATE > 60.0 (>49); GLUCOSE, FASTING 95 MG/DL (70-100); LIPASE 111 U/L (73-393); POTASSIUM SERUM 3.7 MEQ/L (3.5-5.1); SODIUM LEVEL 143 MEQ/L (136-145); TOTAL PROTEIN 6.8 GM/DL (6.4-8.2); TROPONIN I 0.13 NG/ML (< 0.10)
[2017-11-23 22:06] LABS: CK-MB VALUE MASS 2.9 NG/ML (<3.6); MB/CK RELATIVE INDEX 4.08 (< OR =4)
[2017-11-23] MEDS: ASPIRIN 325 MG TAB PO (22:45)
[2017-11-23] MEDS ORDERED: ISOVUE-370 76% 100ML VIAL (Q9967) As Ordered (22:50)
[2017-11-23 23:56] LABS: CK-MB VALUE MASS 2.4 NG/ML (<3.6); CPK CREATINE PHOSPHOKINASE 66 U/L (39-308); MB/CK RELATIVE INDEX 3.63 (< OR =4); TROPONIN I 0.11 NG/ML (< 0.10)
[2017-11-24 00:32] LABS: D-DIMER QUANT 1006.3 ng/ml (<500)
[2017-11-24] MEDS: HEPARIN DRIP 25,000 UNITS in APPROPRIATE DILUENT 1 EA IV ×2 (01:41→03:34)
[2017-11-24] MEDS: HEPARIN SOD (PORCINE) 5000 UNITS/ML VIAL IV ×2 (01:41→01:44)
[2017-11-24] MEDS ORDERED: HEPARIN SOD (PORCINE) 5000 UNITS/ML VIAL SC (03:00)
[2017-11-24] MEDS ORDERED: HEPARIN SOD (PORCINE) 5000 UNITS/ML VIAL IV (03:45)
[2017-11-24 04:25] LABS: BASO % 0.3 % (0.0-1.0); EOS # 0.2 10^3/uL (0.0-0.50); EOS % 2.8 % (0.0-3.0); HEMATOCRIT 43.8 % (42.0-52.0); HEMOGLOBIN 14.6 g/dl (13.5-17.5); IMMATURE GRANULOCYTE % 0.4 % (0-3.0); LYMPH # 1.9 10^3/uL (1.5-4.5); LYMPH % 24.9 % (24.0-44.0); MEAN CORPUSCULAR HEMOGLOBIN 28.9 pg (27.0-33.0); MEAN CORPUSCULAR HGB CONC 33.3 g/dl (32.0-36.5); MEAN CORPUSCULAR VOLUME 86.6 fl (80.0-96.0); MONO # 0.9 10^3/uL (0.0-0.8); MONO % 11.4 % (0.0-5.0); NEUTROPHILS # 4.6 10^3/uL (1.8-7.7); NEUTROPHILS % 60.2 % (36.0-66.0); PLATELET COUNT, AUTOMATED 216 10^3/uL (150-450); RED BLOOD COUNT 5.06 10^6/uL (4.30-6.10); RED CELL DISTRIBUTION WIDTH 14.5 % (11.5-14.5); WHITE BLOOD COUNT 7.6 10^3/uL (4.0-10.0)
[2017-11-24 04:36] LABS: PARTIAL THROMBOPLASTIN TIME 54.3 SECONDS (26.8-37.9)
[2017-11-24] MEDS ORDERED: BENZONATATE 100 MG CAP PO (05:15)
[2017-11-24] MEDS ORDERED: NITROGLYCERIN 0.4 MG SUBL TABLET SL (05:15)
[2017-11-24] MEDS ORDERED: ALBUTEROL 90 MCG/ACT 8GM HFA INHALER INH (05:15)
[2017-11-24] MEDS: SYMBICORT 160/4.5MCG INHALER 6GM INH ×2 (08:23→21:10)
[2017-11-24] MEDS: NS 1,000 ML IV (08:44)
[2017-11-24] MEDS: MULTIVITAMINS/MINERALS THERAP 1 TAB PO (08:54)
[2017-11-24] MEDS: PANTOPRAZOLE 40MG TAB (PROTONIX) PO (08:54)
[2017-11-24] MEDS: ASPIRIN 81 MG ENTERIC TAB PO (08:55)
[2017-11-24 08:56] LABS: PARTIAL THROMBOPLASTIN TIME 72.3 SECONDS (26.8-37.9)
[2017-11-24] MEDS ORDERED: BISOPROLOL FUMARATE 5 MG TAB PO (09:00)
[2017-11-24] MEDS: levETIRAcetam **XR** 750MG TABLET (KEPPRA XR) PO ×2 (09:59→21:18)
[2017-11-24] MEDS: FLUTICASONE PROP 0.05% NASAL SPRAY 16 GM (FLONASE) (09:59)
[2017-11-24] MEDS: BISOPROLOL FUM 2.5 MG PER 1/2TAB PO (09:59)
[2017-11-24 11:04] LABS: APPEARANCE, URINE CLOUDY (CLEAR); BACTERIA, URINE AUTO NEGATIVE (NEGATIVE); BILIRUBIN, URINE AUTO NEGATIVE (NEGATIVE); BLOOD, URINE BLOOD 3+ (NEGATIVE); COLOR, URINE RED (YELLOW); GLUCOSE, URINE (UA) AUTO NEGATIVE (NEGATIVE); KETONE, URINE AUTO NEGATIVE (NEGATIVE); LEUKOCYTE ESTERASE, URINE AUTO NEGATIVE (NEGATIVE); NITRITE, URINE AUTO NEGATIVE (NEGATIVE); PROTEIN, URINE AUTO 2+ mg/dL (NEGATIVE); RBC, URINE AUTO TNTC /HPF (0-3); SPECIFIC GRAVITY URINE AUTO 1.034 (1.002-1.035); SQUAMOUS EPITHELIAL CELL UR AU 0 /HPF (0-6); UROBILINOGEN, URINE AUTO 0.2 mg/dL (0.0-2.0); WBC, URINE AUTO 6 /HPF (0-3)
[2017-11-24 14:19] LABS: PARTIAL THROMBOPLASTIN TIME 26.4 SECONDS (26.8-37.9)
[2017-11-24 14:42] LABS: HEMATOCRIT 44.2 % (42.0-52.0); HEMOGLOBIN 14.5 g/dl (13.5-17.5); MEAN CORPUSCULAR HEMOGLOBIN 28.5 pg (27.0-33.0); MEAN CORPUSCULAR HGB CONC 32.8 g/dl (32.0-36.5); MEAN CORPUSCULAR VOLUME 86.8 fl (80.0-96.0); PLATELET COUNT, AUTOMATED 217 10^3/uL (150-450); RED BLOOD COUNT 5.09 10^6/uL (4.30-6.10); RED CELL DISTRIBUTION WIDTH 14.4 % (11.5-14.5); WHITE BLOOD COUNT 7.5 10^3/uL (4.0-10.0)
[2017-11-24 15:08] LABS: ANION GAP 7 MEQ/L (8-16); BLOOD UREA NITROGEN 12 MG/DL (7-18); CALCIUM LEVEL 8.5 MG/DL (8.8-10.2); CARBON DIOXIDE LEVEL 26 MEQ/L (21-32); CHLORIDE LEVEL 110 MEQ/L (98-107); CREATININE FOR GFR 0.72 MG/DL (0.70-1.30); GLOMERULAR FILTRATION RATE > 60.0 (>49); GLUCOSE, FASTING 91 MG/DL (70-100); POTASSIUM SERUM 3.9 MEQ/L (3.5-5.1); SODIUM LEVEL 143 MEQ/L (136-145)
[2017-11-24] MEDS ORDERED: LIDOCAINE 2% JELLY 30 ML As Ordered (15:16)
[2017-11-24] MEDS ORDERED: LIDOCAINE 2% 5ML JELLY UROJET As Ordered (17:11)
[2017-11-24] MEDS ORDERED: LIDOCAINE 2% JELLY 30 ML TOP (17:15)
[2017-11-24] MEDS ORDERED: PHENAZOPYRIDINE 100 MG TAB PO (17:15)
[2017-11-24] MEDS: MONTELUKAST 10 MG TAB PO (21:18)
[2017-11-24] MEDS: ATORVASTATIN 20 MG TAB PO (21:18)
[2017-11-24] MEDS: zolPIDEM TARTRATE 5 MG TAB PO (21:19)
[2017-11-25 08:05] LABS: HEMATOCRIT 44.8 % (42.0-52.0); HEMOGLOBIN 15.2 g/dl (13.5-17.5); MEAN CORPUSCULAR HEMOGLOBIN 29.1 pg (27.0-33.0); MEAN CORPUSCULAR HGB CONC 33.9 g/dl (32.0-36.5); MEAN CORPUSCULAR VOLUME 85.8 fl (80.0-96.0); PLATELET COUNT, AUTOMATED 235 10^3/uL (150-450); RED BLOOD COUNT 5.22 10^6/uL (4.30-6.10); RED CELL DISTRIBUTION WIDTH 14.4 % (11.5-14.5); WHITE BLOOD COUNT 10.8 10^3/uL (4.0-10.0)
[2017-11-25 08:25] LABS: ANION GAP 6 MEQ/L (8-16); BLOOD UREA NITROGEN 11 MG/DL (7-18); CALCIUM LEVEL 8.5 MG/DL (8.8-10.2); CARBON DIOXIDE LEVEL 26 MEQ/L (21-32); CHLORIDE LEVEL 110 MEQ/L (98-107); CREATININE FOR GFR 0.82 MG/DL (0.70-1.30); GLOMERULAR FILTRATION RATE > 60.0 (>49); GLUCOSE, FASTING 102 MG/DL (70-100); MAGNESIUM LEVEL 2.1 MG/DL (1.8-2.4); POTASSIUM SERUM 3.7 MEQ/L (3.5-5.1); SODIUM LEVEL 142 MEQ/L (136-145)
[2017-11-25] MEDS: SYMBICORT 160/4.5MCG INHALER 6GM INH ×2 (08:37→20:53)
[2017-11-25] MEDS: BISOPROLOL FUM 2.5 MG PER 1/2TAB PO (08:54)
[2017-11-25] MEDS: FLUTICASONE PROP 0.05% NASAL SPRAY 16 GM (FLONASE) (08:55)
[2017-11-25] MEDS: ASPIRIN 81 MG ENTERIC TAB PO (08:55)
[2017-11-25] MEDS: levETIRAcetam **XR** 750MG TABLET (KEPPRA XR) PO ×2 (08:55→20:00)
[2017-11-25] MEDS: PANTOPRAZOLE 40MG TAB (PROTONIX) PO (08:55)
[2017-11-25] MEDS: MULTIVITAMINS/MINERALS THERAP 1 TAB PO (08:55)
[2017-11-25] MEDS: POTASSIUM CHLORIDE 10 MEQ SR TABLET PO (09:59)
[2017-11-25] MEDS: ACETAMINOPHEN TAB 650MG DOSE (2X325MG) PO (20:00)
[2017-11-25] MEDS: MONTELUKAST 10 MG TAB PO (20:00)
[2017-11-25] MEDS: ATORVASTATIN 20 MG TAB PO (20:00)
[2017-11-25] MEDS: zolPIDEM TARTRATE 5 MG TAB PO (21:40)
[2017-11-26 05:17] LABS: HEMATOCRIT 42.3 % (42.0-52.0); HEMOGLOBIN 14.1 g/dl (13.5-17.5); MEAN CORPUSCULAR HEMOGLOBIN 28.8 pg (27.0-33.0); MEAN CORPUSCULAR HGB CONC 33.3 g/dl (32.0-36.5); MEAN CORPUSCULAR VOLUME 86.5 fl (80.0-96.0); PLATELET COUNT, AUTOMATED 209 10^3/uL (150-450); RED BLOOD COUNT 4.89 10^6/uL (4.30-6.10); RED CELL DISTRIBUTION WIDTH 14.4 % (11.5-14.5); WHITE BLOOD COUNT 7.2 10^3/uL (4.0-10.0)
[2017-11-26 05:27] LABS: ANION GAP 7 MEQ/L (8-16); BLOOD UREA NITROGEN 12 MG/DL (7-18); CALCIUM LEVEL 8.6 MG/DL (8.8-10.2); CARBON DIOXIDE LEVEL 26 MEQ/L (21-32); CHLORIDE LEVEL 111 MEQ/L (98-107); CREATININE FOR GFR 0.82 MG/DL (0.70-1.30); GLOMERULAR FILTRATION RATE > 60.0 (>49); GLUCOSE, FASTING 99 MG/DL (70-100); POTASSIUM SERUM 3.7 MEQ/L (3.5-5.1); SODIUM LEVEL 144 MEQ/L (136-145)
[2017-11-26] MEDS: MULTIVITAMINS/MINERALS THERAP 1 TAB PO (09:00)
[2017-11-26] MEDS: SYMBICORT 160/4.5MCG INHALER 6GM INH (09:14)
[2017-11-26] MEDS: levETIRAcetam **XR** 750MG TABLET (KEPPRA XR) PO (09:19)
[2017-11-26] MEDS: BISOPROLOL FUM 2.5 MG PER 1/2TAB PO (09:20)
[2017-11-26] MEDS: ASPIRIN 81 MG ENTERIC TAB PO (09:21)
[2017-11-26] MEDS: PANTOPRAZOLE 40MG TAB (PROTONIX) PO (09:23)
[2017-11-26] MEDS: FLUTICASONE PROP 0.05% NASAL SPRAY 16 GM (FLONASE) (09:23)
[2017-11-26] MEDS ORDERED: SLF 3 ML SYR IV ×2 (12:30→14:00)
[2017-11-26 12:47] LABS: ANION GAP 7 MEQ/L (8-16); BLOOD UREA NITROGEN 11 MG/DL (7-18); CALCIUM LEVEL 8.6 MG/DL (8.8-10.2); CARBON DIOXIDE LEVEL 27 MEQ/L (21-32); CHLORIDE LEVEL 108 MEQ/L (98-107); CREATININE FOR GFR 0.95 MG/DL (0.70-1.30); GLOMERULAR FILTRATION RATE > 60.0 (>49); GLUCOSE, FASTING 122 MG/DL (70-100); SODIUM LEVEL 142 MEQ/L (136-145)
== END 2017-11-26 16:50 | disposition home or self-care (01) | DRG 313 ==
LOC: M ED INP 11-24 03:00 → M PCU 11-24 20:40 → M ED 20:35
DX: R07.2 Precordial pain (principal); R31.0 Gross hematuria; K21.9 Gastro-esophageal reflux disease without esophagitis; I25.10 Atherosclerotic heart disease of native coronary artery without angina pectoris; C61 Malignant neoplasm of prostate; Z79.899 Other long term (current) drug therapy; Z79.82 Long term (current) use of aspirin; Z88.8 Allergy status to other drugs, medicaments and biological substances; J45.909 Unspecified asthma, uncomplicated; G40.909 Epilepsy, unspecified, not intractable, without status epilepticus; Z87.891 Personal history of nicotine dependence; I25.2 Old myocardial infarction; E78.00 Pure hypercholesterolemia, unspecified

== ENCOUNTER → 2017-11-23 | Outpatient (REF) | payer MEDICARE ==
[2017-11-23 13:27] LABS: BACTERIA, URINE AUTO 1+ (NEGATIVE); RBC, URINE AUTO TNTC /HPF (0-3); SQUAMOUS EPITHELIAL CELL UR AU 0 /HPF (0-6); WBC, URINE AUTO 5 /HPF (0-3)
== END ==
LOC: M SMT 12:51
DX: R97.20 Elevated prostate specific antigen [PSA] (principal); R31.0 Gross hematuria
CPT/HCPCS: 81015

== ENCOUNTER → 2017-12-27 | Outpatient (CLI) | payer MEDICARE | LOC: M SMT 12:07 | DX: Z01.818 Encounter for other preprocedural examination (principal); C61 Malignant neoplasm of prostate; R91.8 Other nonspecific abnormal finding of lung field | CPT/HCPCS: 71046 ==

== ENCOUNTER → 2018-01-07 | Outpatient (CLI) | payer MEDICARE ==
[2018-01-07 13:27] LABS: HEMOGLOBIN 15.2 g/dl (13.5-17.5); MEAN CORPUSCULAR HEMOGLOBIN 29.7 pg (27.0-33.0); PLATELET COUNT, AUTOMATED 231 10^3/uL (150-450); RED BLOOD COUNT 5.11 10^6/uL (4.30-6.10); RED CELL DISTRIBUTION WIDTH 13.2 % (11.5-14.5); WHITE BLOOD COUNT 6.5 10^3/uL (4.0-10.0)
[2018-01-07 13:50] LABS: ANION GAP 8 MEQ/L (8-16); BLOOD UREA NITROGEN 16 MG/DL (7-18); CALCIUM LEVEL 8.7 MG/DL (8.8-10.2); CARBON DIOXIDE LEVEL 28 MEQ/L (21-32); CHLORIDE LEVEL 107 MEQ/L (98-107); CREATININE FOR GFR 0.96 MG/DL (0.70-1.30); GLOMERULAR FILTRATION RATE > 60.0 (>49); GLUCOSE, FASTING 97 MG/DL (70-100); POTASSIUM SERUM 4.3 MEQ/L (3.5-5.1); SODIUM LEVEL 143 MEQ/L (136-145)
[2018-01-07 13:58] LABS: PARTIAL THROMBOPLASTIN TIME 27.7 SECONDS (25.4-37.6); PROTHROMBIN TIME 12.8 SECONDS (12.1-14.4)
[2018-01-07 13:59] LABS: INR 0.95
== END ==
LOC: M SMT 09:30
DX: Z01.818 Encounter for other preprocedural examination (principal); C61 Malignant neoplasm of prostate

== ENCOUNTER → 2018-01-07 | Outpatient (CLI) | payer MEDICARE ==
[2018-01-07 13:46] LABS: RHEUMATOID FACTOR QUANT < 10.0 IU/ML (<15.0)
[2018-01-07 13:51] LABS: ERYTHROCYTE SEDIMENTATION RATE 6 mm/hr (0-20)
[2018-01-09 09:05] LABS: ANTI DOUBLE STRAND-DNA AB 1 IU/mL (0-9); ANTINUCLEAR ANTIBODIES DIRECT Positive (Negative); RNP ANTIBODIES 0.4 AI (0.0-0.9); SJOGREN'S ANTI SS-A 0.3 AI (0.0-0.9); SJOGREN'S ANTI SS-B <0.2 AI (0.0-0.9); SMITH ANTIBODIES <0.2 AI (0.0-0.9)
[2018-01-09 09:05] LABS: LEVETIRACETAM (KEPPRA) 29.6 ug/mL (10.0-40.0)
== END ==
LOC: M SMT 09:32
DX: Z01.818 Encounter for other preprocedural examination (principal); C61 Malignant neoplasm of prostate; R56.9 Unspecified convulsions; M25.50 Pain in unspecified joint
CPT/HCPCS: 80048

== ENCOUNTER 2018-01-11 05:47 | Inpatient (IN) | payer MEDICARE ==
[2018-01-11] MEDS ORDERED: LR 1,000 ML IV (06:00)
[2018-01-11 06:29] LABS: INR 1.02; PROTHROMBIN TIME 13.5 SECONDS (12.1-14.4)
[2018-01-11 06:30] LABS: PARTIAL THROMBOPLASTIN TIME 27.1 SECONDS (25.4-37.6)
[2018-01-11] MEDS ORDERED: PROPOFOL 200 MG/20 ML VIAL As Ordered (07:14)
[2018-01-11] MEDS ORDERED: LIDOCAINE 2% INJ 100 MG/5 ML SDV (FOR ANES.) As Ordered (07:14)
[2018-01-11] MEDS ORDERED: ROCURONIUM BROMIDE 50 MG/5 ML VIAL As Ordered ×3 (07:14→10:16)
[2018-01-11] MEDS ORDERED: MIDAZOLAM INJ 2 MG/2 ML VIAL (J2250) As Ordered (07:15)
[2018-01-11] MEDS ORDERED: fentaNYL 250 MCG/5 ML INJECTION (J3010) As Ordered (07:15)
[2018-01-11] MEDS: NS 1,000 ML IV ×3 (07:42→20:33)
[2018-01-11] MEDS ORDERED: ACETAMINOPHEN TAB 650MG DOSE (2X325MG) PO (07:45)
[2018-01-11] MEDS: HEPARIN SOD (PORCINE) 5000 UNITS/ML VIAL SQ (07:46)
[2018-01-11] MEDS ORDERED: dexameTHASONE 4 MG/ML 1ML VIAL (J1100) As Ordered (07:52)
[2018-01-11] MEDS ORDERED: PHENYLephrine HCL 500 MCG/5 ML (100MCG/ML) SYRINGE (J2370) As Ordered (08:01)
[2018-01-11] MEDS ORDERED: ePHEDrine SULFATE 25 MG/5 ML(5MG/ML) SYRINGE As Ordered (08:01)
[2018-01-11] MEDS ORDERED: GLYCOPYRROLATE INJ 0.2 MG/ML 2 ML VIAL As Ordered ×2 (08:05→09:20)
[2018-01-11] MEDS: FLUTICASONE PROP 0.05% NASAL SPRAY 16 GM (FLONASE) (09:00)
[2018-01-11] MEDS ORDERED: HYDROmorphone HCL 2 MG/ML 1ML VIAL (J1170) As Ordered (09:17)
[2018-01-11] MEDS ORDERED: METOCLOPRAMIDE INJ 10MG/2ML VIAL (J2765) As Ordered (09:19)
[2018-01-11] MEDS ORDERED: ONDANSETRON 4MG/2ML VIAL (J2405) As Ordered (09:20)
[2018-01-11] MEDS ORDERED: NEOSTIGMINE 10 MG/10 ML VIAL (J2710) As Ordered ×2 (09:20)
[2018-01-11] MEDS: ceFAZolin 2 GM/D5W 50 ML IV BAG (J0690 PER 500MG) As Ordered (11:58)
[2018-01-11] MEDS: LIDOCAINE 1% SDV INJ 30 ML VIAL As Ordered (13:20)
[2018-01-11] MEDS: BUPIVACAINE HCL 0.25% 30 ML VIAL As Ordered (13:20)
[2018-01-11] MEDS ORDERED: ALBUTEROL 90 MCG/ACT 8GM HFA INHALER INH (13:45)
[2018-01-11] MEDS ORDERED: fentaNYL 100 MCG/2 ML INJECTION (J3010) As Ordered (13:55)
[2018-01-11] MEDS: HEPARIN SOD (PORCINE) 5000 UNITS/ML VIAL SC ×2 (14:00→22:20)
[2018-01-11 14:07] LABS: HEMATOCRIT 41.1 % (42.0-52.0); HEMOGLOBIN 13.7 g/dl (13.5-17.5); MEAN CORPUSCULAR HEMOGLOBIN 29.3 pg (27.0-33.0); MEAN CORPUSCULAR HGB CONC 33.3 g/dl (32.0-36.5); PLATELET COUNT, AUTOMATED 230 10^3/uL (150-450); RED BLOOD COUNT 4.67 10^6/uL (4.30-6.10); RED CELL DISTRIBUTION WIDTH 12.8 % (11.5-14.5); WHITE BLOOD COUNT 13.9 10^3/uL (4.0-10.0)
[2018-01-11] MEDS: LR 1,000 ML IV (14:15)
[2018-01-11] MEDS ORDERED: ONDANSETRON 4MG/2ML VIAL (J2405) IV (14:15)
[2018-01-11] MEDS ORDERED: fentaNYL 100 MCG/2 ML INJECTION (J3010) IV (14:15)
[2018-01-11] MEDS ORDERED: HYDROMORPHONE HCL 0.5 MG/ 0.5 ML SYRINGE (J1170 PER 1) As Ordered (14:20)
[2018-01-11 14:28] LABS: ANION GAP 5 MEQ/L (8-16); BLOOD UREA NITROGEN 14 MG/DL (7-18); CALCIUM LEVEL 7.8 MG/DL (8.8-10.2); CARBON DIOXIDE LEVEL 27 MEQ/L (21-32); CHLORIDE LEVEL 107 MEQ/L (98-107); CREATININE FOR GFR 0.97 MG/DL (0.70-1.30); GLOMERULAR FILTRATION RATE > 60.0 (>49); GLUCOSE, FASTING 163 MG/DL (70-100); POTASSIUM SERUM 4.1 MEQ/L (3.5-5.1); SODIUM LEVEL 139 MEQ/L (136-145)
[2018-01-11] MEDS ORDERED: HYDROMORPHONE HCL 0.5 MG/ 0.5 ML SYRINGE (J1170 PER 1) IV (14:30)
[2018-01-11] MEDS: ceFAZolin SOD 1 GM in D5W MINI-BAG PLUS 50 ML IV (18:14)
[2018-01-11] MEDS: levETIRAcetam **XR** 750MG TABLET (KEPPRA XR) PO (20:33)
[2018-01-11] MEDS: MONTELUKAST 10 MG TAB PO (20:33)
[2018-01-11] MEDS: ATORVASTATIN 20 MG TAB PO (20:33)
[2018-01-11] MEDS: DOCUSATE SODIUM 100 MG CAP PO (20:33)
[2018-01-11] MEDS: PERCOCET 5MG/325MG TAB PO (22:20)
[2018-01-12] MEDS: ceFAZolin SOD 1 GM in D5W MINI-BAG PLUS 50 ML IV (00:25)
[2018-01-12] MEDS: MORPHINE 4 MG/ML 1ML VIAL/SYRINGE (J2270) IV ×2 (00:44→18:08)
[2018-01-12] MEDS: NS 1,000 ML IV (04:54)
[2018-01-12] MEDS: HEPARIN SOD (PORCINE) 5000 UNITS/ML VIAL SC ×3 (05:18→21:42)
[2018-01-12 06:42] LABS: ANION GAP 5 MEQ/L (8-16); BLOOD UREA NITROGEN 11 MG/DL (7-18); CALCIUM LEVEL 7.3 MG/DL (8.8-10.2); CARBON DIOXIDE LEVEL 25 MEQ/L (21-32); CHLORIDE LEVEL 111 MEQ/L (98-107); CREATININE FOR GFR 0.77 MG/DL (0.70-1.30); GLOMERULAR FILTRATION RATE > 60.0 (>49); GLUCOSE, FASTING 112 MG/DL (70-100); POTASSIUM SERUM 4.2 MEQ/L (3.5-5.1); SODIUM LEVEL 141 MEQ/L (136-145)
[2018-01-12 06:45] LABS: HEMATOCRIT 35.8 % (42.0-52.0); MEAN CORPUSCULAR HEMOGLOBIN 29.4 pg (27.0-33.0); MEAN CORPUSCULAR HGB CONC 32.1 g/dl (32.0-36.5); MEAN CORPUSCULAR VOLUME 91.6 fl (80.0-96.0); PLATELET COUNT, AUTOMATED 189 10^3/uL (150-450); RED BLOOD COUNT 3.91 10^6/uL (4.30-6.10)
[2018-01-12 06:52] LABS: HEMOGLOBIN 11.5 g/dl (13.5-17.5)
[2018-01-12] MEDS: ASPIRIN 81 MG ENTERIC TAB PO (08:04)
[2018-01-12] MEDS: DOCUSATE SODIUM 100 MG CAP PO ×2 (08:05→21:41)
[2018-01-12] MEDS: OMEPRAZOLE 20 MG CAP PO (08:05)
[2018-01-12] MEDS: BISOPROLOL FUM 2.5 MG PER 1/2TAB PO (08:06)
[2018-01-12] MEDS: levETIRAcetam **XR** 750MG TABLET (KEPPRA XR) PO ×2 (08:06→21:39)
[2018-01-12] MEDS: PERCOCET 5MG/325MG TAB PO ×3 (08:09→21:41)
[2018-01-12] MEDS: FLUTICASONE PROP 0.05% NASAL SPRAY 16 GM (FLONASE) (09:00)
[2018-01-12] MEDS: ONDANSETRON 4MG/2ML VIAL (J2405) IV (18:07)
[2018-01-12] MEDS: MONTELUKAST 10 MG TAB PO (21:41)
[2018-01-12] MEDS: ATORVASTATIN 20 MG TAB PO (21:42)
[2018-01-13] MEDS: PERCOCET 5MG/325MG TAB PO ×5 (02:35→20:15)
[2018-01-13 05:45] LABS: HEMATOCRIT 32.7 % (42.0-52.0); HEMOGLOBIN 10.4 g/dl (13.5-17.5); MEAN CORPUSCULAR HEMOGLOBIN 28.6 pg (27.0-33.0); MEAN CORPUSCULAR HGB CONC 31.8 g/dl (32.0-36.5); MEAN CORPUSCULAR VOLUME 89.8 fl (80.0-96.0); PLATELET COUNT, AUTOMATED 207 10^3/uL (150-450); RED BLOOD COUNT 3.64 10^6/uL (4.30-6.10); RED CELL DISTRIBUTION WIDTH 13.3 % (11.5-14.5); WHITE BLOOD COUNT 7.3 10^3/uL (4.0-10.0)
[2018-01-13] MEDS: HEPARIN SOD (PORCINE) 5000 UNITS/ML VIAL SC ×3 (05:56→22:19)
[2018-01-13 06:06] LABS: ANION GAP 4 MEQ/L (8-16); BLOOD UREA NITROGEN 14 MG/DL (7-18); CALCIUM LEVEL 7.3 MG/DL (8.8-10.2); CARBON DIOXIDE LEVEL 30 MEQ/L (21-32); CHLORIDE LEVEL 110 MEQ/L (98-107); CREATININE FOR GFR 0.83 MG/DL (0.70-1.30); GLOMERULAR FILTRATION RATE > 60.0 (>49); GLUCOSE, FASTING 95 MG/DL (70-100); POTASSIUM SERUM 3.9 MEQ/L (3.5-5.1); SODIUM LEVEL 144 MEQ/L (136-145)
[2018-01-13] MEDS: ASPIRIN 81 MG ENTERIC TAB PO (08:59)
[2018-01-13] MEDS: OMEPRAZOLE 20 MG CAP PO (09:00)
[2018-01-13] MEDS: levETIRAcetam **XR** 750MG TABLET (KEPPRA XR) PO ×2 (09:00→20:13)
[2018-01-13] MEDS: BISOPROLOL FUM 2.5 MG PER 1/2TAB PO (09:00)
[2018-01-13] MEDS: DOCUSATE SODIUM 100 MG CAP PO ×2 (09:00→20:14)
[2018-01-13] MEDS: FLUTICASONE PROP 0.05% NASAL SPRAY 16 GM (FLONASE) (09:01)
[2018-01-13 14:17] LABS: CREATININE BF 0.7 MG/DL (NOT ESTABLISHED); SOURCE, BODY FLUID CREATININE PERITONEAL
[2018-01-13] MEDS: ATORVASTATIN 20 MG TAB PO (20:13)
[2018-01-13] MEDS: MONTELUKAST 10 MG TAB PO (20:14)
[2018-01-14] MEDS: PERCOCET 5MG/325MG TAB PO (03:40)
[2018-01-14 06:15] LABS: HEMOGLOBIN 10.2 g/dl (13.5-17.5); MEAN CORPUSCULAR HEMOGLOBIN 29.5 pg (27.0-33.0); MEAN CORPUSCULAR HGB CONC 32.9 g/dl (32.0-36.5); MEAN CORPUSCULAR VOLUME 89.6 fl (80.0-96.0); PLATELET COUNT, AUTOMATED 192 10^3/uL (150-450); RED BLOOD COUNT 3.46 10^6/uL (4.30-6.10); RED CELL DISTRIBUTION WIDTH 13.1 % (11.5-14.5); WHITE BLOOD COUNT 7.8 10^3/uL (4.0-10.0)
[2018-01-14] MEDS: HEPARIN SOD (PORCINE) 5000 UNITS/ML VIAL SC (06:23)
[2018-01-14 06:34] LABS: ANION GAP 5 MEQ/L (8-16); BLOOD UREA NITROGEN 10 MG/DL (7-18); CALCIUM LEVEL 7.7 MG/DL (8.8-10.2); CARBON DIOXIDE LEVEL 30 MEQ/L (21-32); CHLORIDE LEVEL 107 MEQ/L (98-107); CREATININE FOR GFR 0.73 MG/DL (0.70-1.30); GLOMERULAR FILTRATION RATE > 60.0 (>49); GLUCOSE, FASTING 100 MG/DL (70-100); SODIUM LEVEL 142 MEQ/L (136-145)
[2018-01-14] MEDS: ASPIRIN 81 MG ENTERIC TAB PO (10:24)
[2018-01-14] MEDS: OMEPRAZOLE 20 MG CAP PO (10:24)
[2018-01-14] MEDS: BISOPROLOL FUM 2.5 MG PER 1/2TAB PO (10:25)
[2018-01-14] MEDS: levETIRAcetam **XR** 750MG TABLET (KEPPRA XR) PO (10:25)
[2018-01-14] MEDS: DOCUSATE SODIUM 100 MG CAP PO (10:25)
[2018-01-14] MEDS: FLUTICASONE PROP 0.05% NASAL SPRAY 16 GM (FLONASE) (10:26)
[2018-01-14] MEDS: CIPROFLOXACIN 500 MG TAB PO (10:28)
== END 2018-01-14 13:45 | disposition home or self-care (01) | DRG 708 ==
LOC: M OR 05:47 → M MS5PR 15:09
PROC: 0VT04ZZ Resection of Prostate, Percutaneous Endoscopic Approach (ICD-10-PCS; principal; 2018-01-11 07:30)
PROC: 07TC4ZZ Resection of Pelvis Lymphatic, Percutaneous Endoscopic Approach (ICD-10-PCS; 2018-01-11 07:30)
PROC: 0VT34ZZ Resection of Bilateral Seminal Vesicles, Percutaneous Endoscopic Approach (ICD-10-PCS; 2018-01-11 07:30)
PROC: 8E0W4CZ Robotic Assisted Procedure of Trunk Region, Percutaneous Endoscopic Approach (ICD-10-PCS; 2018-01-11 07:30)
DX: C61 Malignant neoplasm of prostate (principal)

== ENCOUNTER → 2018-02-16 | Outpatient (REF) | payer MEDICARE | LOC: M SFHCLERA 14:28 | DX: J01.90 Acute sinusitis, unspecified (principal) ==

== ENCOUNTER → 2018-02-22 | Outpatient (CLI) | payer MEDICARE ==
[2018-02-22 17:51] LABS: PROSTATIC SPECIFIC AG MONITOR 0.17 NG/ML (< 4.0)
== END ==
LOC: M SMT 12:30
DX: C61 Malignant neoplasm of prostate (principal)
CPT/HCPCS: 84153

== ENCOUNTER → 2018-02-25 | Outpatient (CLI) | payer MEDICARE ==
[2018-02-25 17:24] LABS: HEMATOCRIT 39.1 % (42.0-52.0); HEMOGLOBIN 12.3 g/dl (13.5-17.5); MEAN CORPUSCULAR HEMOGLOBIN 26.5 pg (27.0-33.0); MEAN CORPUSCULAR HGB CONC 31.5 g/dl (32.0-36.5); MEAN CORPUSCULAR VOLUME 84.3 fl (80.0-96.0); PLATELET COUNT, AUTOMATED 270 10^3/uL (150-450); RED BLOOD COUNT 4.64 10^6/uL (4.30-6.10); RED CELL DISTRIBUTION WIDTH 13.3 % (11.5-14.5); WHITE BLOOD COUNT 7.5 10^3/uL (4.0-10.0)
[2018-02-25 17:35] LABS: ALBUMIN 3.6 GM/DL (3.2-5.2); ALBUMIN/GLOBULIN RATIO 0.97 (1.00-1.93); ALKALINE PHOSPHATASE 73 U/L (45-117); ALT/SGPT 23 U/L (12-78); ANION GAP 8 MEQ/L (8-16); AST/SGOT 22 U/L (7-37); BILIRUBIN,TOTAL 0.7 MG/DL (0.2-1.0); BLOOD UREA NITROGEN 12 MG/DL (7-18); CALCIUM LEVEL 8.6 MG/DL (8.8-10.2); CARBON DIOXIDE LEVEL 28 MEQ/L (21-32); CHLORIDE LEVEL 107 MEQ/L (98-107); CREATININE FOR GFR 0.85 MG/DL (0.70-1.30); GLOMERULAR FILTRATION RATE > 60.0 (>49); GLUCOSE, FASTING 85 MG/DL (70-100); IMMUNOGLOBULIN G 1430 MG/DL (681-1648); POTASSIUM SERUM 4.3 MEQ/L (3.5-5.1); SODIUM LEVEL 143 MEQ/L (136-145); TOTAL PROTEIN 7.3 GM/DL (6.4-8.2)
== END ==
LOC: M SMT 14:10
DX: D83.9 Common variable immunodeficiency, unspecified (principal)
CPT/HCPCS: 80053

== ENCOUNTER → 2018-03-27 | Outpatient (CLI) | payer MEDICARE ==
[2018-03-27 18:58] LABS: CHOLESTEROL LEVEL 119 MG/DL (<200); CHOLESTEROL RISK RATIO 2.051 (<5); HDL CHOLESTEROL 58 MG/DL (>40); LDL CHOLESTEROL 50 MG/DL (<100); NON-HDL-C 61 MG/DL; TRIGLYCERIDES LEVEL 54 MG/DL (<150)
== END ==
LOC: M SMT 14:46
DX: I25.10 Atherosclerotic heart disease of native coronary artery without angina pectoris (principal)

== ENCOUNTER → 2018-03-27 | Outpatient (CLI) | payer MEDICARE | LOC: M SMT 14:50 | DX: C61 Malignant neoplasm of prostate (principal); I25.10 Atherosclerotic heart disease of native coronary artery without angina pectoris | CPT/HCPCS: 84153 ==

== ENCOUNTER → 2018-05-23 | Outpatient (REF) | payer MEDICARE ==
[2018-05-23 17:36] LABS: PROSTATIC SPECIFIC AG MONITOR 0.2 NG/ML (< 4.0)
== END ==
LOC: M LABSMT 11:55
DX: C61 Malignant neoplasm of prostate (principal)
CPT/HCPCS: 84153

== ENCOUNTER → 2018-06-13 | Outpatient (CLI) | payer MEDICARE | LOC: M ONCR 13:37 | DX: C61 Malignant neoplasm of prostate (principal) | CPT/HCPCS: G0463 ==

== ENCOUNTER → 2018-07-08 | Outpatient (RCR) | payer MEDICARE ==
[2018-06-17 11:46] LABS: HEMATOCRIT 39.1 % (37.0-51.0); HEMOGLOBIN 12.9 g/dl (12.0-18.0); LYMPH % 24.2 % (10.0-58.5); MEAN CORPUSCULAR HEMOGLOBIN 25.3 pg (26.0-32.0); MEAN CORPUSCULAR VOLUME 76.9 fl (80.0-97.0); NEUTROPHILS # 4.6 10^3/uL (2.0-7.8); NEUTROPHILS % 65.1 % (37.0-92.0); RED BLOOD COUNT 5.09 10^6/uL (4.2-6.3); WHITE BLOOD COUNT 7.1 10^3/uL (4.1-10.9)
--- NOTE | 2018-06-18 11:37 | RADONC ---
RADIATION ONCOLOGY SIMULATION NOTE DATE: 06/17/2018 CHART NUMBER: [id number] SIMULATION NOTE: Mr. Ferguson was taken to the CT scan for CT simulation of his prostate bed field. CT was accomplished without difficulty or discomfort. Radiation treatment planning is underway and radiation treatments will begin subsequently. An immobilization device was created and will be used throughout the course of treatment. It was created without difficulty or discomfort. I was physically present throughout the course of CT simulation.
--- NOTE | 2018-07-05 12:25 | RADONC ---
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 Thus far, the treatments have been very well tolerated as he denies any nausea, vomiting, diarrhea or any blood per rectum. His energy level is such that he is able to maintain most day-to-day activities without any alteration of his lifestyle. Skin irritation is denied. EXAMINATION FINDINGS: Skin within the irradiated volume shows neither erythema nor desquamation. Lymphatics: No palpable peripheral lymphadenopathy is appreciated. The remainder of the physical examination is unchanged. IMPRESSION: Tolerating therapy well. PLAN: Treatments to continue
[~2018-07-08] MED LIST changes: +ACET1LIQ PO; +BENZ-18 PO; -BENZ100C5 PO; +BREO1INH INH; +BREO1INH PO; +CIPR-250 PO; +GLUC1CAP9 PO; +IBUP-1022 PO; +NEXI40CA PO; +OXYC1TAB23 PO; +POTA99TA PO; +STOO100C PO; +SYMB16INH INH; +TRAM-533 PO
--- NOTE | 2018-07-10 14:21 | RADONC ---
RADIATION ONCOLOGY PROGRESS NOTE: DATE: 07/08/2018 CHART NUMBER: [id number] Mr. Ferguson is presently at a dose of 1440 cGy to his prostate bed and is tolerating treatments quite well at this point with some increased bowel frequency. He is having no urinary problems. REVIEW OF SYSTEMS: The patient's review of systems is positive for some increased bowel frequency but is otherwise noncontributory. He denies nausea, vomiting, fevers, chills, night sweats, diplopia, headaches, anxiety or depression, anorexia, weight loss, visual disturbances, chest pain, urinary or bowel difficulties, bone pain, or neurological problems. PHYSICAL EXAMINATION: The patient's skin is in good condition with no evidence of moist or dry desquamation. The remainder of his physical exam remains unchanged. Mr. Ferguson is tolerating treatments quite well and radiation will continue as scheduled.
== END ==
LOC: M ONCR 06-17 10:45
PROVIDERS: ATTEND Radiology Radiation Oncology
DX: C61 Malignant neoplasm of prostate (principal)

== ENCOUNTER 2018-07-19 13:37 | Emergency (ER) | payer MEDICARE ==
[~2018-07-19] VITALS: Ht 167.6 cm; Wt 79.5 kg
[2018-07-19 13:37] VITALS: BP 134/75
[~2018-07-19 13:37] MED LIST changes: -IBUP-1022 PO; -TRAM-533 PO
[2018-07-19] MEDS ORDERED: IBUP-1022 PO (14:19)
[2018-07-19] MEDS ORDERED: TRAM-533 PO (14:19)
[2018-07-19] MEDS ORDERED: PERCOCET 5MG/325MG TAB PO ONE (14:30)
== END 2018-07-19 14:52 | disposition home or self-care (01) ==
LOC: M ED 13:37
DX: S86.011A Strain of right Achilles tendon, initial encounter (principal); X58.XXXA Exposure to other specified factors, initial encounter; Y92.89 Other specified places as the place of occurrence of the external cause; I25.10 Atherosclerotic heart disease of native coronary artery without angina pectoris; Z79.899 Other long term (current) drug therapy; Z79.82 Long term (current) use of aspirin; Z88.8 Allergy status to other drugs, medicaments and biological substances

== ENCOUNTER 2018-08-07 12:52 | Outpatient (RCR) | payer MEDICARE ==
--- NOTE | 2018-07-23 07:21 | RADONC ---
RADIATION ONCOLOGY PROGRESS NOTE DATE: 07/22/2018 CHART NUMBER: [id number] Mr. Ferguson is presently at a dose of 2880 cGy to his prostate bed and is tolerating his treatments fairly well at this point with no significant difficulties related to his radiation therapy. The patient presents today reporting he has got some cold / flu-like symptoms but nothing related to radiation. He also sprained his ankle. PHYSICAL EXAMINATION: The patient's skin is in good condition with no evidence of radiation change present. There is no moist or dry desquamation. The remainder of his physical exam remains unchanged. Mr. Ferguson is tolerating treatments quite well and radiation will continue as scheduled.
--- NOTE | 2018-07-30 11:24 | RADONC ---
RADIATION ONCOLOGY PROGRESS NOTE DATE: 07/29/2018 CHART #: [id number] Mr. Ferguson is presently at a dose of 3600 cGy to his prostate bed and is tolerating treatments quite well at this point with no complaints related to his radiation therapy. He is having no urinary or bowel difficulties and no bone pain. REVIEW OF SYSTEMS: The patient's review of systems is noncontributory. Denies nausea, vomiting, fevers, chills, night sweats, diplopia, headaches, anxiety or depression, anorexia, weight loss, visual disturbances, chest pain, urinary or bowel difficulties, bone pain, or neurological problems. PHYSICAL EXAMINATION: The patient's skin is in good condition with no evidence of moist or dry desquamation. The remainder of the physical exam remains unchanged. Mr. Ferguson is tolerating treatments quite well and radiation will continue as scheduled.
--- NOTE | 2018-08-05 14:42 | RADONC ---
RADIATION ONCOLOGY PROGRESS NOTE DATE: 08/05/2018 CHART NUMBER: [id number] PROGRESS NOTE: Mr. Ferguson is presently at a dose of 4500 cGy to his pelvis and overall is tolerating his treatments fairly well with just some anal discomfort. REVIEW OF SYSTEMS: The patient's review of systems is positive for anal discomfort when defecating but is otherwise noncontributory. The patient's review of systems is noncontributory. Denies nausea, vomiting, fevers, chills, night sweats, diplopia, headaches, anxiety or depression, anorexia, weight loss, visual disturbances, chest pain, urinary or bowel difficulties, bone pain, or neurological problems. PHYSICAL EXAMINATION: The patient's skin is in good condition with no evidence of moist or dry desquamation. The remainder of his physical exam remains unchanged. Mr. Ferguson is tolerating treatments quite well and radiation will continue as scheduled.
[~2018-08-07 12:52] MED LIST changes: +IBUP-1022 PO; +TRAM-533 PO
== END 2018-08-08 ==
LOC: M ONCR 12:52
PROVIDERS: ATTEND Radiology Radiation Oncology
DX: C61 Malignant neoplasm of prostate (principal)

== ENCOUNTER 2018-08-23 12:57 | Outpatient (RCR) | payer MEDICARE ==
--- NOTE | 2018-08-13 11:42 | RADONC ---
RADIATION ONCOLOGY PROGRESS NOTE DATE: 08/12/2018 CHART NUMBER: [id number] Mr. Ferguson is presently at a dose of 5040 cGy to his pelvis and is tolerating treatments quite well at this point with no complaints related to his radiation therapy. He is having no urinary or bowel difficulties. No bone pain. The patient's review of systems is noncontributory. He denies nausea, vomiting, fevers, chills, night sweats, diplopia, headaches, anxiety or depression, anorexia, weight loss, visual disturbances, chest pain, urinary or bowel difficulties, bone pain, or neurological problems. PHYSICAL EXAMINATION: The patient's skin is in good condition with no evidence of radiation change present. There is no moist or dry desquamation. The remainder of his physical exam remains unchanged. Mr. Ferguson is tolerating treatments quite well, and radiation will continue as scheduled.
--- NOTE | 2018-08-21 12:56 | RADONC ---
RADIATION ONCOLOGY PROGRESS NOTE DATE OF SERVICE: 08/19/2018 CHART NUMBER: [id number]. PROGRESS NOTE: Mr. Ferguson with a diagnosis of adenocarcinoma of the prostate stage IIB is currently receiving local regional radiotherapy, and he has had a dose of 5940 cGy of an anticipated 6660 cGy. He is tolerating his therapy reasonably well with the exception of some hemorrhoidal irritation, for which he has requested a prescription for some local cream. He denies any nausea, vomiting, diarrhea, dysuria, hematuria, or blood per rectum. His energy level is such that he is able to maintain most day-to-day activities without any alteration of his lifestyle. REVIEW OF SYSTEMS: The remainder of the review of systems is basically noncontributory. PHYSICAL EXAMINATION: Reveals a fairly healthy-appearing man in no acute distress. He has some external hemorrhoids, which appear inflamed. IMPRESSION: Tolerating therapy reasonably well. PLAN: A prescription was e-scribed to [facility] in [place] for some Anusol-HC cream. MTDD
[~2018-08-23 12:57] MED LIST changes: +ANUS2.5C2 TOP
--- NOTE | 2018-08-27 18:07 | RADONC ---
RADIATION ONCOLOGY RADIATION THERAPY TREATMENT SUMMARY DATE OF SERVICE: 08/23/2018 CHART NUMBER: [id number]. DIAGNOSIS: Prostate cancer. STAGE: IIB, [id number], PSA 12.9. GROVER SCORE: 7 (3+4). The patient is status post prostatectomy. ECOG PERFORMANCE STATUS: Zero. SUMMARY: Plan of radiotherapy, postoperative. Date radiotherapy started 06/25/2019. Date radiotherapy completed 08/23/2018. Dose: The patient initially received 4500 cGy to a limited pelvic area, administered in 25 fractions over 41 elapsed days utilizing a 15 MV photon beam via a 4 field 3-D conformal technique. Thereafter, the webster were reduced for an additional 2160 cGy, utilizing smaller portals, bringing the total dose postoperatively to 6660 cGy, administered in 37 fractions over 59 elapsed days. Again, the field reduction was accomplished via a 15 MV photon beam 100 cm SAD with a three-dimensional conformal radiotherapy configuration. STATUS OF TUMOR: There was no evidence of local regional progression during his course of radiotherapy and no evidence of distant metastatic disease. TOLERANCE: In general, treatments were quite well tolerated, as he denied any nausea, vomiting, diarrhea, dysuria, hematuria, or blood per rectum. We would like to see him back in approximately 1 month or p.r.n., and he was advised to return to his referring physicians as per their directions and instructions. cc: MD Chuy Rojas MD [facility]
== END 2018-09-05 ==
LOC: M ONCR 12:57
PROVIDERS: ATTEND Radiology Radiation Oncology
DX: C61 Malignant neoplasm of prostate (principal)

== ENCOUNTER → 2018-09-20 | Outpatient (CLI) | payer MEDICARE | LOC: M LAB 12:18 | PROVIDERS: ATTEND Radiology Radiation Oncology | DX: C61 Malignant neoplasm of prostate (principal) ==

== ENCOUNTER → 2018-09-25 | Outpatient (CLI) | payer MEDICARE ==
--- NOTE | 2018-09-26 09:55 | RADONC ---
RADIATION ONCOLOGY FOLLOWUP NOTE DATE: 09/25/2018 CHART NUMBER: [id number] DIAGNOSIS: Prostate cancer. STAGE: Stage II B, [id number], PSA 12.9. ECOG PERFORMANCE STATUS: 0. FOLLOWUP NOTE: Mr. Corea is a very pleasant 68-year-old white male with the diagnosis of a stage II B, [id number], moderate to poorly differentiated Rashad score 7 (3+4) adenocarcinoma of prostate with a PSA score of 10.9 who is presenting to us today for routine followup visit 1 month post completion of external beam radiation therapy. The patient presents today reporting that he is doing quite well with no complaints at this time related to his radiation therapy or disease. He has no urinary or bowel difficulties and no bone pain. The patient's review of systems is noncontributory. Denies nausea, vomiting, fevers, chills, night sweats, diplopia, headaches, anxiety or depression, anorexia, weight loss, visual disturbances, chest pain, urinary or bowel difficulties, bone pain, or neurological problems. PHYSICAL EXAMINATION: The patient is a well-developed, well-nourished male in no acute distress. HEENT exam is normocephalic, atraumatic. Extraocular movements are intact. There is no palpable cervical, supraclavicular, infraclavicular, axillary, or inguinal lymphadenopathy present. Lungs are clear to auscultation and percussion. Heart has a regular rate and rhythm. Abdomen is benign with no hepatosplenomegaly, masses, or tenderness. Rectal examination reveals a normal anal sphincter tone. His prostate bed is smooth with no evidence of nodularity. Skeletal examination reveals no tenderness to pressure or percussion of the bony skeleton. Extremities reveal no clubbing, cyanosis, or edema. Neurologic exam is grossly intact, as is the remainder of the physical examination. ASSESSMENT The patient is clinically ROBERTO at this time and will be seen by us again in 6 months for further followup. He will also continue to be followed by his other physicians as well. cc: MD Chuy Rojas MD
== END ==
LOC: M ONCR 13:02
PROVIDERS: ATTEND Radiology Radiation Oncology
DX: C61 Malignant neoplasm of prostate (principal)

== ENCOUNTER → 2018-10-08 | Outpatient (REF) | payer MEDICARE | LOC: M LABNEURO 13:32 | PROVIDERS: ATTEND Physician Assistant Medical | DX: G40.89 Other seizures (principal) ==

== ENCOUNTER → 2018-11-17 | Outpatient (REF) | payer MEDICARE ==
[~2018-11-17] MED LIST changes: -ASPI1TAB PO; +ASPI81TA26 PO
== END ==
LOC: M LABSMT 10:26
PROVIDERS: ATTEND Urology
DX: C61 Malignant neoplasm of prostate (principal)

== ENCOUNTER 2018-12-30 09:16 | Day surgery (SDC) | payer MEDICARE ==
[~2018-12-30] VITALS: Ht 170.2 cm; Wt 77.9 kg
[~2018-12-30 09:16] MED LIST changes: +CENT1TAB PO; +HM P99TA PO; +LEVOTAB10 PO; +VITAD1000T PO
[2018-12-30] MEDS ORDERED: fentaNYL 100 MCG/2 ML INJECTION (J3010) As Ordered ONE (10:08)
[2018-12-30] MEDS ORDERED: PROPOFOL 500 MG/50 ML VIAL As Ordered ONE (10:08)
[2018-12-30] MEDS: NS 1,000 ML IV ONE (10:09)
[2018-12-30] MEDS ORDERED: LIDOCAINE 2% INJ 100 MG/5 ML SDV (FOR ANES.) As Ordered ONE ×2 (10:48→11:25)
[2018-12-30] MEDS ORDERED: ePHEDrine SULFATE 25 MG/5 ML(5MG/ML) SYRINGE As Ordered ONE (11:19)
--- NOTE | 2018-12-30 11:25 | ROOR ---
Patient Name: Hussein Ferguson Procedure Date: 12/30/2018 11:08 AM Date of : 1950 Age: 68 Room: [facility] Gender: Male Note Status: Finalized Procedure: Upper Endoscopy + Biopsies Indications: Heartburn, Exclusion of De Luna's esophagus Providers: Scottie Mason MD Referring MD: Chuy Campbell MD Requesting Provider: Medicines: Monitored Anesthesia Care Complications: No immediate complications. Procedure: Pre-Anesthesia Assessment: - The heart rate, respiratory rate, oxygen saturations, blood pressure, adequacy of pulmonary ventilation, and response to care were monitored throughout the procedure. The Endoscope was introduced through the mouth, and advanced to the second part of duodenum. The upper GI endoscopy was accomplished without difficulty. The patient tolerated the procedure well. Findings: The Z-line was variable and was found 40 cm from the incisors. Multiple biopsies were obtained with cold forceps for evaluation to rule out De Luna's Esophagus randomly at the gastroesophageal junction. A small hiatal hernia was present. No other significant abnormalities were identified in a careful examination of the stomach. The exam of the duodenum was otherwise normal. Impression: - Z-line variable, 40 cm from the incisors. - Small hiatal hernia. - Multiple biopsies were obtained at the gastroesophageal junction. - The examination was otherwise normal. Recommendation: - Patient has a contact number available for emergencies. The signs and symptoms of potential delayed complications were discussed with the patient. Return to normal activities tomorrow. Written discharge instructions were provided to the patient. - High fiber diet. - Discharge patient to home. - Continue present medications. - Await pathology results. - Telephone GI clinic for pathology results in 1 week. - Return to referring physician. - The findings and recommendations were discussed with the patient's family. Scottie Mason MD Scottie Mason MD 12/30/2018 11:25:05 AM Electronically signed by Scottie Mason MD Number of Addenda: 0 Note Initiated On: 12/30/2018 11:08 AM Estimated Blood Loss: Estimated blood loss: none.
--- NOTE | 2018-12-30 11:38 | ROOR ---
Patient Name: Hussein eFrguson Procedure Date: 12/30/2018 11:09 AM Date of : 1950 Age: 68 Room: [facility] Gender: Male Note Status: Finalized Procedure: Total Colonoscopy to Cecum Indications: High risk colon cancer surveillance: Personal history of colonic polyps Providers: Scottie Mason MD Referring MD: Chuy Campbell MD Requesting Provider: Medicines: Monitored Anesthesia Care Complications: No immediate complications. Procedure: Pre-Anesthesia Assessment: - The heart rate, respiratory rate, oxygen saturations, blood pressure, adequacy of pulmonary ventilation, and response to care were monitored throughout the procedure. The Colonoscope was introduced through the anus and advanced to the cecum, identified by appendiceal orifice and ileocecal valve. The colonoscopy was performed without difficulty. The patient tolerated the procedure well. The quality of the bowel preparation was excellent. Findings: The perianal and digital rectal examinations were normal. Non-bleeding internal hemorrhoids were found during retroflexion. The hemorrhoids were small and Grade I (internal hemorrhoids that do not prolapse). Multiple small and large-mouthed diverticula were found in the recto-sigmoid colon, sigmoid colon and descending colon. The exam was otherwise without abnormality on direct and retroflexion views. Impression: - Non-bleeding internal hemorrhoids. - Diverticulosis in the recto-sigmoid colon, in the sigmoid colon and in the descending colon. - The examination was otherwise normal on direct and retroflexion views. - No specimens collected. - The exam was otherwise normal to the cecum. Recommendation: - Patient has a contact number available for emergencies. The signs and symptoms of potential delayed complications were discussed with the patient. Return to normal activities tomorrow. Written discharge instructions were provided to the patient. - High fiber diet. - Discharge patient to home. - Continue present medications. - Repeat colonoscopy in 5 years for surveillance. - Return to referring physician. - The findings and recommendations were discussed with the patient's family. Scottie Mason MD Scottie Mason MD 12/30/2018 11:38:29 AM Electronically signed by Scottie Mason MD Number of Addenda: 0 Note Initiated On: 12/30/2018 11:09 AM Estimated Blood Loss: Estimated blood loss: none.
[2018-12-30 11:55] VITALS: BP 106/64
== END 2018-12-30 12:04 | disposition home or self-care (01) ==
LOC: M OPP 09:16
PROVIDERS: ATTEND Internal Medicine Gastroenterology
DX: K64.0 First degree hemorrhoids (principal); K57.30 Diverticulosis of large intestine without perforation or abscess without bleeding; K22.8 Other specified diseases of esophagus; K44.9 Diaphragmatic hernia without obstruction or gangrene; R12 Heartburn; Z86.010 Personal history of colon polyps
CPT/HCPCS: 43239; 88305; G0105; J3010

== ENCOUNTER → 2019-02-24 | Outpatient (REF) | payer MEDICARE ==
[~2019-02-24] MED LIST changes: +MM S100C PO; -STOO100C PO
== END ==
LOC: M LABSMT 11:30
PROVIDERS: ATTEND Urology
DX: C61 Malignant neoplasm of prostate (principal)

== ENCOUNTER → 2019-03-17 | Outpatient (CLI) | payer MEDICARE ==
[~2019-03-17] MED LIST changes: -BISO5TAB5 PO; +BISO5TAB9 PO; +CHOL100029 PO; -VITAD1000T PO
[2019-03-17 20:40] LABS: BLOOD UREA NITROGEN 22 MG/DL (7-18); CALCIUM LEVEL 8.8 MG/DL (8.8-10.2); CARBON DIOXIDE LEVEL 28 MEQ/L (21-32); CHLORIDE LEVEL 108 MEQ/L (98-107); CREATININE FOR GFR 0.94 MG/DL (0.70-1.30); GLOMERULAR FILTRATION RATE > 60.0 (>49); GLUCOSE, FASTING 95 MG/DL (70-100); IMMUNOGLOBULIN G 1510 MG/DL (681-1648); POTASSIUM SERUM 4.4 MEQ/L (3.5-5.1); SODIUM LEVEL 143 MEQ/L (136-145)
[2019-03-17 20:51] LABS: BASO % 0.3 % (0.0-1.0); EOS # 0.4 10^3/uL (0.0-0.5); EOS % 4.9 % (0.0-3.0); HEMATOCRIT 42.4 % (42.0-52.0); HEMOGLOBIN 13.1 g/dl (13.5-17.5); LYMPH % 13.9 % (24.0-44.0); MEAN CORPUSCULAR HEMOGLOBIN 25.8 pg (27.0-33.0); MEAN CORPUSCULAR HGB CONC 30.9 g/dl (32.0-36.5); MEAN CORPUSCULAR VOLUME 83.5 fl (80.0-96.0); MONO # 0.7 10^3/uL (0.0-0.8); MONO % 9.5 % (0.0-5.0); NEUTROPHILS # 5.2 10^3/uL (1.5-8.5); PLATELET COUNT, AUTOMATED 219 10^3/uL (150-450); RED BLOOD COUNT 5.08 10^6/uL (4.30-6.10); WHITE BLOOD COUNT 7.3 10^3/uL (4.0-10.0)
== END ==
LOC: M LRY 15:36
PROVIDERS: ATTEND Nurse Practitioner Family
DX: D83.9 Common variable immunodeficiency, unspecified (principal); C61 Malignant neoplasm of prostate

== ENCOUNTER → 2019-03-17 | Outpatient (REF) | payer MEDICARE | LOC: M LAB REF 15:21 | PROVIDERS: ATTEND Radiology Radiation Oncology | DX: C61 Malignant neoplasm of prostate (principal) ==

== ENCOUNTER → 2019-03-19 | Outpatient (CLI) | payer MEDICARE ==
--- NOTE | 2019-03-21 07:20 | RADONC ---
RADIATION ONCOLOGY FOLLOWUP NOTE DATE OF SERVICE: 03/19/2019 CHART NUMBER [id number]. DIAGNOSIS: Prostate cancer. Stage II B, [id number], PSA 12.9. ECOG performance status 0. Mr. Ferguson is a very pleasant 68-year-old man with a diagnosis of stage II B, [id number], moderate to poorly differentiated Rashad score 7 (3+4) adenocarcinoma of prostate with a PSA of 12.9. He presents today for followup visit after having completed a course of radiotherapy to the prostate bed on 08/23/2018. He claims very few side effects secondary to his treatment. He specifically denies any nausea, vomiting, diarrhea, dysuria, hematuria or blood per rectum. His most recent PSA collected 03/17/2019 revealed a level of 0.04. He claims also though on February 24, a PSA was 0.02. His PSA on 09/20/2018 was 0.11. Basically his PSA is relatively stable and significantly lower which is encouraging. He denies any nausea, vomiting, diarrhea, dysuria, hematuria or blood per rectum. He also denies any bone pain, neurologic problems, anxiety or depression. EXAMINATION FINDINGS: Skin within the irradiated volume shows neither erythema nor desquamation. Lymphatics: No palpable peripheral lymphadenopathy is appreciated. Lungs are clear. Heart: Regular. Abdomen: Without evidence of masses or tenderness. Rectal: Examination was deferred because the patient requested this and of his low PSA value. Skeletal system reveals no tenderness. Extremities: Without cyanosis, clubbing or edema. Neurologic: Examination grossly intact. IMPRESSION: Clinically ROBERTO at this time and he will be seen again in approximately 6 months or p.r.n. A PSA will be obtained prior to his visit. cc: MD Chuy Rojas MD
== END ==
LOC: M ONCR 13:27
PROVIDERS: ATTEND Radiology Radiation Oncology
DX: C61 Malignant neoplasm of prostate (principal)

== ENCOUNTER → 2019-05-29 | Outpatient (REF) | payer MEDICARE ==
[~2019-05-29] MED LIST changes: -MAGN400T PO; +MAGN400T3 PO
== END ==
LOC: M LRY 13:47
PROVIDERS: ATTEND Urology
DX: C61 Malignant neoplasm of prostate (principal)

== ENCOUNTER → 2019-05-29 | Outpatient (CLI) | payer MEDICARE ==
[2019-05-29 13:55] LABS: BASO % 0.3 % (0.0-1.0); EOS # 0.3 10^3/uL (0.0-0.5); EOS % 4.1 % (0.0-3.0); HEMATOCRIT 44.5 % (42.0-52.0); HEMOGLOBIN 13.8 g/dl (13.5-17.5); LYMPH % 16.3 % (24.0-44.0); MEAN CORPUSCULAR HEMOGLOBIN 25.9 pg (27.0-33.0); MEAN CORPUSCULAR VOLUME 83.5 fl (80.0-96.0); MONO # 0.8 10^3/uL (0.0-0.8); MONO % 12.9 % (0.0-5.0); NEUTROPHILS # 4.1 10^3/uL (1.5-8.5); NEUTROPHILS % 66.2 % (36.0-66.0); PLATELET COUNT, AUTOMATED 238 10^3/uL (150-450); RED BLOOD COUNT 5.33 10^6/uL (4.30-6.10); WHITE BLOOD COUNT 6.1 10^3/uL (4.0-10.0)
[2019-05-29 14:04] LABS: BLOOD UREA NITROGEN 15 MG/DL (7-18); CARBON DIOXIDE LEVEL 29 MEQ/L (21-32); CHLORIDE LEVEL 107 MEQ/L (98-107); CREATININE FOR GFR 0.81 MG/DL (0.70-1.30); GLOMERULAR FILTRATION RATE > 60.0 (>49); GLUCOSE, FASTING 92 MG/DL (70-100); IMMUNOGLOBULIN G 1520 MG/DL (681-1648); POTASSIUM SERUM 4.2 MEQ/L (3.5-5.1); SODIUM LEVEL 141 MEQ/L (136-145)
== END ==
LOC: M LRY 09:59
PROVIDERS: ATTEND Allergy & Immunology Allergy
DX: D83.9 Common variable immunodeficiency, unspecified (principal)

== ENCOUNTER → 2019-05-29 | Outpatient (CLI) | payer MEDICARE | LOC: M LRY 10:06 | PROVIDERS: ATTEND Physician Assistant Medical | DX: R56.9 Unspecified convulsions (principal) ==

== ENCOUNTER → 2019-05-29 | Outpatient (REF) | payer MEDICARE | LOC: M LABSMT 09:40 | PROVIDERS: ATTEND Urology | DX: Z53.9 Procedure and treatment not carried out, unspecified reason (principal) ==

== ENCOUNTER 2019-06-05 15:36 | Emergency (ER) | payer MEDICARE ==
[~2019-06-05] VITALS: Ht 170.2 cm; Wt 82.1 kg
[2019-06-05] MEDS ORDERED: ALBU83IN NEB (15:47)
--- NOTE | 2019-06-05 16:31 | REP ---
Clinical: Cough. Comparison: 11/23/2017 . Technique: PA and lateral. Findings: The mediastinum and cardiac silhouette are normal. The lung webster are clear and without acute consolidation, effusion, or pneumothorax. The skeletal structures are intact and normal. Impression: 1. No acute cardiopulmonary process. Electronically Signed by Bill Quezada MD 06/05/2019 04:22 P
[2019-06-05 17:17] LABS: INFLUENZA A AMPLIFICATION NEGATIVE (NEGATIVE); INFLUENZA B AMPLIFICATION NEGATIVE (NEGATIVE)
[2019-06-05 17:38] VITALS: BP 119/72
--- NOTE | 2019-06-06 07:55 | ECGEPIP ---
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
== END 2019-06-05 17:42 | disposition home or self-care (01) ==
LOC: M ED 15:36
DX: J06.9 Acute upper respiratory infection, unspecified (principal); I10 Essential (primary) hypertension; I25.2 Old myocardial infarction; J45.909 Unspecified asthma, uncomplicated; K21.9 Gastro-esophageal reflux disease without esophagitis; R94.31 Abnormal electrocardiogram [ECG] [EKG]; Z79.51 Long term (current) use of inhaled steroids; Z79.82 Long term (current) use of aspirin; Z87.891 Personal history of nicotine dependence; Z88.8 Allergy status to other drugs, medicaments and biological substances

== ENCOUNTER → 2019-10-21 | Outpatient (REF) | payer MEDICARE ==
[~2019-10-21] MED LIST changes: +ACET160L16 PO; -ACET1LIQ PO; +ALBU83IN NEB; +BISO5TAB14 PO; -BISO5TAB9 PO
== END ==
LOC: M PLALAB 12:16
PROVIDERS: ATTEND Urology
DX: R97.20 Elevated prostate specific antigen [PSA] (principal)

== ENCOUNTER → 2019-11-03 | Outpatient (CLI) | payer MEDICARE ==
[2019-11-03 15:15] LABS: BASO % 0.3 % (0.0-1.0); EOS # 0.2 10^3/uL (0.0-0.5); EOS % 2.3 % (0.0-3.0); HEMATOCRIT 41.6 % (42.0-52.0); HEMOGLOBIN 13.6 g/dl (13.5-17.5); LYMPH # 1.3 10^3/uL (1.5-5.0); LYMPH % 19.5 % (24.0-44.0); MEAN CORPUSCULAR HEMOGLOBIN 27.1 pg (27.0-33.0); MEAN CORPUSCULAR HGB CONC 32.7 g/dl (32.0-36.5); MONO # 0.8 10^3/uL (0.0-0.8); MONO % 12.2 % (0.0-5.0); NEUTROPHILS # 4.3 10^3/uL (1.5-8.5); NEUTROPHILS % 65.2 % (36.0-66.0); PLATELET COUNT, AUTOMATED 221 10^3/uL (150-450); RED BLOOD COUNT 5.01 10^6/uL (4.30-6.10); WHITE BLOOD COUNT 6.6 10^3/uL (4.0-10.0)
[2019-11-03 15:21] LABS: ALBUMIN 3.2 GM/DL (3.2-5.2); ALT/SGPT 31 U/L (12-78); BILIRUBIN,DIRECT 0.2 MG/DL (0.0-0.2); BILIRUBIN,TOTAL 0.6 MG/DL (0.2-1.0); BLOOD UREA NITROGEN 18 MG/DL (7-18); CALCIUM LEVEL 8.4 MG/DL (8.8-10.2); CARBON DIOXIDE LEVEL 28 MEQ/L (21-32); CHLORIDE LEVEL 108 MEQ/L (98-107); CREATININE FOR GFR 0.92 MG/DL (0.70-1.30); GLOMERULAR FILTRATION RATE > 60.0 (>49); GLUCOSE, FASTING 100 MG/DL (70-100); IMMUNOGLOBULIN G 1600 MG/DL (681-1648); POTASSIUM SERUM 4.5 MEQ/L (3.5-5.1); SODIUM LEVEL 141 MEQ/L (136-145); TOTAL PROTEIN 7.1 GM/DL (6.4-8.2)
== END ==
LOC: M PLALAB 13:40
PROVIDERS: ATTEND Nurse Practitioner Family
DX: D83.9 Common variable immunodeficiency, unspecified (principal)

== ENCOUNTER → 2020-02-18 | Outpatient (REF) | payer MEDICARE | LOC: M SMT 07:36 | PROVIDERS: ATTEND Urology | DX: C61 Malignant neoplasm of prostate (principal) ==

== ENCOUNTER → 2020-05-20 | Outpatient (REF) | payer MEDICARE | LOC: M PLALAB 09:15 | PROVIDERS: ATTEND Urology | DX: C61 Malignant neoplasm of prostate (principal) ==

== ENCOUNTER 2020-09-08 13:14 | Emergency (ER) | payer MEDICARE ==
[~2020-09-08] VITALS: Ht 170.2 cm; Wt 81.8 kg
[2020-09-08 14:17] LABS: BASO % 0.3 % (0.0-1.0); EOS # 0.2 10^3/uL (0.0-0.5); EOS % 2.5 % (0.0-3.0); HEMATOCRIT 43.7 % (42.0-52.0); HEMOGLOBIN 13.5 g/dl (13.5-17.5); LYMPH # 1.1 10^3/uL (1.5-5.0); LYMPH % 15.4 % (24.0-44.0); MEAN CORPUSCULAR HGB CONC 30.9 g/dl (32.0-36.5); MONO # 0.7 10^3/uL (0.0-0.8); NEUTROPHILS # 5.1 10^3/uL (1.5-8.5); NEUTROPHILS % 71.5 % (36.0-66.0); PLATELET COUNT, AUTOMATED 243 10^3/uL (150-450); WHITE BLOOD COUNT 7.1 10^3/uL (4.0-10.0)
--- NOTE | 2020-09-08 14:20 | REP ---
INDICATION: DYSPNEA/COUGH COMPARISON: 06/05/2019 TECHNIQUE: PA and lateral. FINDINGS: The mediastinum and cardiac silhouette are normal. The lung webster demonstrate chronic stable changes without acute consolidation, effusion, or pneumothorax. The skeletal structures are intact and normal. IMPRESSION: No acute cardiopulmonary process. <Electronically signed by Bill Quezada > 09/08/20 [id number]
[2020-09-08 14:51] LABS: ALBUMIN 3.5 GM/DL (3.2-5.2); ALT/SGPT 28 U/L (12-78); BILIRUBIN,DIRECT 0.1 MG/DL (0.0-0.2); BILIRUBIN,TOTAL 0.6 MG/DL (0.2-1.0); BLOOD UREA NITROGEN 18 MG/DL (7-18); CALCIUM LEVEL 8.9 MG/DL (8.8-10.2); CARBON DIOXIDE LEVEL 28 MEQ/L (21-32); CHLORIDE LEVEL 108 MEQ/L (98-107); CK-MB VALUE MASS 1.6 NG/ML (<3.6); CPK CREATINE PHOSPHOKINASE 72 U/L (39-308); CREATININE FOR GFR 1.04 MG/DL (0.70-1.30); GLOMERULAR FILTRATION RATE > 60.0 (>49); GLUCOSE, FASTING 101 MG/DL (70-100); MB/CK RELATIVE INDEX 2.22 (< OR =4); NT-PRO BNP 299 PG/ML (<125); POTASSIUM SERUM 4.2 MEQ/L (3.5-5.1); SODIUM LEVEL 140 MEQ/L (136-145); TOTAL PROTEIN 7.4 GM/DL (6.4-8.2); TROPONIN I 0.16 NG/ML (< 0.10)
[2020-09-08] MEDS ORDERED: CLOPIDOGREL 300 MG TAB (PLAVIX) PO ONE (15:00)
[2020-09-08] MEDS ORDERED: HEPARIN SOD (PORCINE) 5000UNITS/ML 1ML VIAL/SYRINGE IV ONE (15:00)
[2020-09-08] MEDS ORDERED: ASPIRIN 81 MG CHEW TABLET PO ONE (15:00)
[2020-09-08] MEDS ORDERED: HEPARIN DRIP 25,000 UNITS in IV 1 EA IV SCH (15:00)
[2020-09-08] MEDS ORDERED: ASPIRIN 81 MG CHEW TABLET As Ordered ONE (15:04)
[2020-09-08] MEDS ORDERED: CLOPIDOGREL 300 MG TAB (PLAVIX) As Ordered ONE (15:05)
[2020-09-08] MEDS ORDERED: HEPARIN SOD (PORCINE) 5000UNITS/ML 1ML VIAL/SYRINGE As Ordered ONE (15:05)
[2020-09-08] MEDS ORDERED: NITROGLYCERIN 0.4 MG SUBL TABLET As Ordered ONE (15:05)
[2020-09-08] MEDS ORDERED: HEPARIN 25,000 UNITS/250 ML D5W BAG (100 UNITS/ML) (J1644 PER 1000UNITS) As Ordered ONE (15:06)
[2020-09-08] MEDS: NITROGLYCERIN 0.4 MG SUBL TABLET SL PRN ×3 (15:11→15:27)
[2020-09-08 15:27] VITALS: BP 147/74
[2020-09-08] MEDS ORDERED: MORPHINE 2 MG/ML 1ML VIAL (J2270) IV ONE (15:35)
[2020-09-08] MEDS ORDERED: MORPHINE 2 MG/ML 1ML VIAL (J2270) As Ordered ONE (15:38)
[2020-09-08] MEDS ORDERED: ONDANSETRON 4MG/2ML VIAL As Ordered ONE (15:53)
[2020-09-08 15:56] LABS: INR 1.15
[2020-09-08 16:05] LABS: PARTIAL THROMBOPLASTIN TIME 201.6 SECONDS (24.2-38.5)
[2020-09-08] MEDS ORDERED: ONDANSETRON 4MG/2ML VIAL IV ONE (16:05)
[2020-09-08 16:14] LABS: RSV AMPLIFICATION NEGATIVE (NEGATIVE)
[2020-09-08] MEDS ORDERED: NITROGLYCERIN/D5W 100MCG/ML 25 MG in IV 1 EA IV SCH (16:25)
[2020-09-08 16:58] LABS: INR 1.12; PROTHROMBIN TIME 14.7 SECONDS (12.5-14.3)
--- NOTE | 2020-09-08 17:15 | ECGEPIP ---
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
[2020-09-08 17:31] VITALS: BP 115/75
[2020-09-08 17:44] LABS: CK-MB VALUE MASS 1.1 NG/ML (<3.6); MB/CK RELATIVE INDEX 1.57 (< OR =4); TROPONIN I 0.16 NG/ML (< 0.10)
== END 2020-09-08 17:35 | disposition short-term general hospital (02) ==
LOC: M ED 13:14
DX: I24.9 Acute ischemic heart disease, unspecified (principal); I10 Essential (primary) hypertension; I25.2 Old myocardial infarction; Z79.899 Other long term (current) drug therapy; Z79.82 Long term (current) use of aspirin; Z88.8 Allergy status to other drugs, medicaments and biological substances
CPT/HCPCS: 71046; 80048; 80076; 82550; 82553; 83880; 84443; 84484; 85025; 85610; 85730; 87631; 93005; 93041; 94760; 96361; 96365; 96368; 96375; 99291; J1644; J2270; J2405

== ENCOUNTER 2020-10-15 00:58 | Emergency (ER) | payer MEDICARE ==
[~2020-10-15] VITALS: Ht 170.2 cm; Wt 86.0 kg
[2020-10-15 01:28] LABS: BASO % 0.3 % (0.0-1.0); EOS # 0.2 10^3/uL (0.0-0.5); HEMATOCRIT 38.9 % (42.0-52.0); HEMOGLOBIN 11.9 g/dl (13.5-17.5); LYMPH # 1.3 10^3/uL (1.5-5.0); MEAN CORPUSCULAR HEMOGLOBIN 25.7 pg (27.0-33.0); MEAN CORPUSCULAR HGB CONC 30.6 g/dl (32.0-36.5); MONO # 0.9 10^3/uL (0.0-0.8); MONO % 11.6 % (2.0-8.0); NEUTROPHILS # 5.2 10^3/uL (1.5-8.5); NEUTROPHILS % 68.8 % (36.0-66.0); PLATELET COUNT, AUTOMATED 214 10^3/uL (150-450); RED BLOOD COUNT 4.63 10^6/uL (4.30-6.10); WHITE BLOOD COUNT 7.5 10^3/uL (4.0-10.0)
[2020-10-15 01:49] LABS: BLOOD UREA NITROGEN 26 MG/DL (7-18); CALCIUM LEVEL 8.1 MG/DL (8.8-10.2); CARBON DIOXIDE LEVEL 27 MEQ/L (21-32); CHLORIDE LEVEL 111 MEQ/L (98-107); CK-MB VALUE MASS 3.1 NG/ML (<3.6); CPK CREATINE PHOSPHOKINASE 104 U/L (39-308); CREATININE FOR GFR 0.99 MG/DL (0.70-1.30); GLOMERULAR FILTRATION RATE > 60.0 (>49); GLUCOSE, FASTING 124 MG/DL (70-100); MB/CK RELATIVE INDEX 2.98 (< OR =4); POTASSIUM SERUM 3.3 MEQ/L (3.5-5.1); SODIUM LEVEL 143 MEQ/L (136-145); TROPONIN I 0.21 NG/ML (< 0.10)
[2020-10-15] MEDS ORDERED: POTASSIUM CHLORIDE 10 MEQ SR TABLET PO ONE (02:05)
--- NOTE | 2020-10-15 02:28 | REPVR ---
PROCEDURE INFORMATION: Exam: XR Chest Exam date and time: 10/15/20 (1:24am) Age: 70 years old Clinical indication: Chest pain TECHNIQUE: Imaging protocol: Portable CXR Views: 1 view COMPARISON: Chest films of 09/08/20 FINDINGS: Lungs: No consolidation. Minimal faint linear stranding again seen at the lung bases. Pleural spaces: Unremarkable. No pleural effusiond. No pneumothorax. Heart/Mediastinum: Stable heart size. The Bones/joints: Unremarkable. IMPRESSION: No acute findings. A similar appearance was noted 5 weeks ago. Electronically signed by: Lenora Mccoy On 10/15/2020 02:28:20 AM
[2020-10-15] MEDS ORDERED: NS 1,000 ML IV ONE (04:50)
[2020-10-15] MEDS ORDERED: ISOVUE-370 76% 100ML VIAL As Ordered ONE (04:54)
[2020-10-15 05:00] VITALS: BP 103/61
--- NOTE | 2020-10-15 05:52 | REPVR ---
PROCEDURE INFORMATION: Exam: CTA Chest with Contrast Exam date and time: 10/15/20 (5:19am) Age: 70 years old Clinical indication: Chest pain, palpitations, elevated troponin TECHNIQUE: Imaging protocol: Computed tomographic angiography of the chest with contrast. 3D rendering (Not supervised by radiologist): MIP and/or 3D reconstructed images were created by the technologist. Radiation optimization: All CT scans at this facility use at least one of these dose optimization techniques: automated exposure control; mA and/or kV adjustment per patient size (includes targeted exams where dose is matched to clinical indication); or iterative reconstruction. Contrast material: Iso Contrast volume: 75 ml Contrast route: IV COMPARISON: CTA CHEST of 11/23/17 FINDINGS: Pulmonary arteries: Normal. No pulmonary emboli. Aorta: Unremarkable. No aortic aneurysm. No aortic dissection. Lungs: Mild bibasilar atelectatic and hypoventilatory changes. No consolidation. No masses. Pleural spaces: Unremarkable. No pneumothorax. No pleural effusion. Heart: Cardiomegaly. No pericardial effusion. Lymph nodes: Unremarkable. No enlarged lymph nodes. Bones/joints: No acute fracture. Degenerative thoracic spine changes. Soft tissues: Unremarkable. Upper abdomen: S/P cholecystectomy. A few small simple hepatic cysts. IMPRESSION: No acute findings. Cardiomegaly. No filling defects suspicious for pulmonary emboli are seen. There is no CT evidence of aortic dissection nor leakage. No aortic aneurysm is appreciated. S/P cholecystectomy. Electronically signed by: Lenora Mccoy On 10/15/2020 05:52:46 AM
[2020-10-15 08:08] LABS: CK-MB VALUE MASS 3.2 NG/ML (<3.6); MB/CK RELATIVE INDEX 3.95 (< OR =4); TROPONIN I 0.25 NG/ML (< 0.10)
[2020-10-15] MEDS ORDERED: AMLO25TA PO (09:18)
[2020-10-15] MEDS ORDERED: CARA1TAB6 PO (11:55)
--- NOTE | 2020-10-15 12:05 | IPNPDOC ---
Text Note Date of Service The patient was seen on 10/15/20. NOTE Hospitalist consultation note: Subjective: Patient is a 70-year-old male who presented to the emergency Department earlier last evening with chief complaint of substernal chest pain. Patient states that the chest pain started around 11:00 in the evening and presented to the emergency room. He took 2 nitroglycerin pills prior to coming in receive 2 more in the ambulance on the way into the hospital. This resolved chest pain. Patient was going to be discharged from the emergency department as his workup did not show any worsening of his troponins. Patient had a cardiac catheterization as recent as 5 weeks ago which did not show any changes from a previous cardiac catheterization in 2016. Patient had a blockage of 30% of the LAD according to the emergency department physician who we spoke with. Patient does have a history of GERD symptoms however and does take esomeprazole outpatient does follow with gastroenterology. Objective: Vitals: See below telemetry: Normal sinus rhythm rate 60-65. General: Alert and oriented male patient who is laying on a stretcher comfo rtably on room. Patient did not want any acute distress. HEENT: Normocephalic, atraumatic, moist membranes Neck: No JVD Respiratory: Breathing comfortably and able to carry on a conversation without d ifficulty. CV: Normal rate and rhythm ABD: Obese, non-distended Extremities: no edema in lower extremities Neuro: able to move all 4 equally, no focal deficits A/P: Patient is a 70 year old male who presented to the ED with chest pain., Initial work up was negative for cardiac causes and the patient was discharged however, the patient did not want to leave the ED and medicine was consulted for further evaluation. After discussing with the patient the risks and benefits of hospitalization, the patient decided that he would be discharged as planned on by the emergency department. Patient was nervous as he started having the feeling again. Patient has a history of elevated troponins which the troponins that were performed in the emergency department are unchanged from previous visits. Patient's ECG was also unchanged on review. Emergency room provider, Dr. Dumont, called and spoke with the patient's appeals reviewer veteran who advised starting the patient on 2.5 mg of amlodipine. We have advised that the patient be given sucralfate 3 times a day for the next 14 days. Patient has a history of combined immunodeficiency and receives Hizentra infusions at home every 10 days. After discussing with the patient that his immunodeficiency and the risk of hospital-acquired infections being increased due to this and the fact that the patient's chest pain is not likely due to cardiac nature, the decision was made to discharge the patient from the emergency department. VS,Fishbone, I+O VS, Fishbone, I+O Laboratory Tests 10/15/20 01:09 Vital Signs Date Time Temp Pulse Resp B/P (MAP) Pulse Ox O2 Delivery O2 Flow Rate FiO2 10/15/20 05:00 103/61 (75) 10/15/20 04:53 52 18 98 Room Air 10/15/20 01:18 98.6 2.0 GME ATTESTATION GME ATTESTATION My faculty preceptor for this patient encounter was physically present during the encounter and was fully available. All aspects of the patient interview, examination, medical decision making process, and medical care plan development were reviewed and approved by the faculty preceptor. The faculty preceptor is aware and concurs with the plan as stated in the body of this note and will attest to such by his/her cosignature. ATTENDING NOTE I, Jaylin De La Garza MD, have independently examined this patient and performed my own physical exam, as well as reviewed the documentation and edited where necessary. I have discussed in detail with the resident / student the findings and plan of treatment as documented by the resident / student and edited their note. I agree with their findings and treatment plan and have edited their d ocumentation. GEORGE SOLOMON DO Oct 15, 2020 12:05 JAYILN DE LA GARZA MD Oct 15, 2020 15:17
--- NOTE | 2020-10-15 20:54 | ECGEPIP ---
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
--- NOTE | 2020-10-15 21:03 | ECGEPIP ---
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
== END 2020-10-15 12:27 | disposition home or self-care (01) ==
LOC: M ED 00:58
DX: I20.1 Angina pectoris with documented spasm (principal); F41.9 Anxiety disorder, unspecified; I10 Essential (primary) hypertension; E11.9 Type 2 diabetes mellitus without complications; G40.909 Epilepsy, unspecified, not intractable, without status epilepticus; K21.9 Gastro-esophageal reflux disease without esophagitis; E78.5 Hyperlipidemia, unspecified; Z79.899 Other long term (current) drug therapy; Z79.82 Long term (current) use of aspirin
CPT/HCPCS: 71045; 71275; 80048; 82550; 82553; 84484; 85025; 93005; 93041; 94760; 96360; 96361; 99285; Q9967

== ENCOUNTER → 2020-10-26 | Outpatient (CLI) | payer MEDICARE ==
[~2020-10-26] MED LIST changes: +AMLO25TA PO; +CARA1TAB6 PO; -HM P99TA PO; +POTA99TA14 PO
[2020-10-26 14:58] LABS: HEMATOCRIT 42.9 % (42.0-52.0); HEMOGLOBIN 13.2 g/dl (13.5-17.5); MEAN CORPUSCULAR HEMOGLOBIN 25.4 pg (27.0-33.0); MEAN CORPUSCULAR HGB CONC 30.8 g/dl (32.0-36.5); MEAN CORPUSCULAR VOLUME 82.5 fl (80.0-96.0); PLATELET COUNT, AUTOMATED 228 10^3/uL (150-450); WHITE BLOOD COUNT 5.3 10^3/uL (4.0-10.0)
[2020-10-26 15:06] LABS: INR 1.01; PROTHROMBIN TIME 13.5 SECONDS (12.5-14.3)
[2020-10-26 15:24] LABS: BLOOD UREA NITROGEN 17 MG/DL (7-18); CALCIUM LEVEL 8.9 MG/DL (8.8-10.2); CARBON DIOXIDE LEVEL 28 MEQ/L (21-32); CHLORIDE LEVEL 106 MEQ/L (98-107); CREATININE FOR GFR 0.91 MG/DL (0.70-1.30); GLOMERULAR FILTRATION RATE > 60.0 (>49); GLUCOSE, FASTING 92 MG/DL (70-100); POTASSIUM SERUM 3.9 MEQ/L (3.5-5.1); SODIUM LEVEL 140 MEQ/L (136-145)
[2020-10-27 12:37] LABS: PTT LUPUS TYPE ANTICOAG SCREEN 0.9 (0-1.2)
[2020-11-02 11:08] LABS: ANTI THROMBIN 3 ANTIGEN IMMUNO 80 % (72-124); ANTI THROMBIN 3 FUNCT ACTIVITY 101 % (75-135); CARDIOLIPIN IGA ANTIBODY <9 APL U/mL (0-11); CARDIOLIPIN IGG ANTIBODY <9 GPL U/mL (0-14); CARDIOLIPIN IGM ANTIBODY <9 MPL U/mL (0-12); PROTEIN C FUNCTIONAL ACTIVITY 124 % (73-180); PROTEIN S FUNCTIONAL ACTIVITY 78 % (63-140)
== END ==
LOC: M PLALAB 08:57
PROVIDERS: ATTEND Nurse Practitioner Family
DX: I25.10 Atherosclerotic heart disease of native coronary artery without angina pectoris (principal); I74.9 Embolism and thrombosis of unspecified artery; D68.9 Coagulation defect, unspecified

== ENCOUNTER → 2020-11-16 | Outpatient (REF) | payer MEDICARE | LOC: M PLALAB 12:41 | PROVIDERS: ATTEND Urology | DX: C61 Malignant neoplasm of prostate (principal) ==

== ENCOUNTER → 2021-02-03 | Outpatient (CLI) | payer MEDICARE ==
[2021-02-03 17:35] LABS: BASO % 0.2 % (0.0-1.0); EOS # 0.1 10^3/uL (0.0-0.5); HEMOGLOBIN 12.3 g/dl (13.5-17.5); LYMPH # 1.1 10^3/uL (1.5-5.0); LYMPH % 19.9 % (24.0-44.0); MEAN CORPUSCULAR HEMOGLOBIN 24.8 pg (27.0-33.0); MEAN CORPUSCULAR HGB CONC 30.8 g/dl (32.0-36.5); MEAN CORPUSCULAR VOLUME 80.6 fl (80.0-96.0); MONO # 0.7 10^3/uL (0.0-0.8); MONO % 12.1 % (2.0-8.0); NEUTROPHILS # 3.8 10^3/uL (1.5-8.5); NEUTROPHILS % 66.6 % (36.0-66.0); PLATELET COUNT, AUTOMATED 222 10^3/uL (150-450); RED BLOOD COUNT 4.96 10^6/uL (4.30-6.10); WHITE BLOOD COUNT 5.7 10^3/uL (4.0-10.0)
== END ==
LOC: M PLALAB 14:20
PROVIDERS: ATTEND Allergy & Immunology Allergy
DX: D83.9 Common variable immunodeficiency, unspecified (principal)

== ENCOUNTER → 2021-05-25 | Outpatient (CLI) | payer MEDICARE ==
[~2021-05-25] MED LIST changes: -MAGN400T3 PO; +MAGN400T33 PO; -TERB250T12 PO; +TERB250T91 PO
== END ==
LOC: M PLALAB 14:06
PROVIDERS: ATTEND Urology
DX: C61 Malignant neoplasm of prostate (principal)

== ENCOUNTER → 2021-09-26 | Outpatient (CLI) | payer MEDICARE ==
[2021-09-26 10:27] LABS: BASO % 0.4 % (0.0-1.0); EOS # 0.3 10^3/uL (0.0-0.5); EOS % 6.2 % (0.0-3.0); HEMATOCRIT 40.6 % (42.0-52.0); HEMOGLOBIN 12.3 g/dl (13.5-17.5); LYMPH # 1.3 10^3/uL (1.5-5.0); LYMPH % 23.2 % (24.0-44.0); MEAN CORPUSCULAR HEMOGLOBIN 24.5 pg (27.0-33.0); MEAN CORPUSCULAR HGB CONC 30.3 g/dl (32.0-36.5); MEAN CORPUSCULAR VOLUME 80.7 fl (80.0-96.0); MONO # 0.7 10^3/uL (0.0-0.8); MONO % 12.3 % (2.0-8.0); NEUTROPHILS # 3.2 10^3/uL (1.5-8.5); NEUTROPHILS % 57.5 % (36.0-66.0); PLATELET COUNT, AUTOMATED 219 10^3/uL (150-450); RED BLOOD COUNT 5.03 10^6/uL (4.30-6.10); WHITE BLOOD COUNT 5.5 10^3/uL (4.0-10.0)
[2021-09-26 10:57] LABS: ERYTHROCYTE SEDIMENTATION RATE 5 mm/hr (0-20)
== END ==
LOC: M PLALAB 07:44
PROVIDERS: ATTEND Allergy & Immunology Allergy
DX: D83.9 Common variable immunodeficiency, unspecified (principal)

== ENCOUNTER → 2021-11-25 | Outpatient (CLI) | payer MEDICARE | LOC: M PLALAB 08:46 | PROVIDERS: ATTEND Urology | DX: C61 Malignant neoplasm of prostate (principal) ==

== ENCOUNTER → 2022-01-20 | Outpatient (CLI) | payer MEDICARE ==
[~2022-01-20] MED LIST changes: +ALBU2.5V10 NEB; -ALBU83IN NEB
[2022-01-20 12:54] LABS: BASO % 0.4 % (0.0-1.0); EOS # 0.1 10^3/uL (0.0-0.5); EOS % 1.6 % (0.0-3.0); HEMATOCRIT 45.7 % (42.0-52.0); HEMOGLOBIN 15.2 g/dl (13.5-17.5); LYMPH # 1.2 10^3/uL (1.5-5.0); LYMPH % 15.5 % (24.0-44.0); MEAN CORPUSCULAR HEMOGLOBIN 29.6 pg (27.0-33.0); MEAN CORPUSCULAR HGB CONC 33.3 g/dl (32.0-36.5); MEAN CORPUSCULAR VOLUME 89.1 fl (80.0-96.0); MONO # 0.7 10^3/uL (0.0-0.8); NEUTROPHILS # 5.8 10^3/uL (1.5-8.5); PLATELET COUNT, AUTOMATED 222 10^3/uL (150-450); RED BLOOD COUNT 5.13 10^6/uL (4.30-6.10); WHITE BLOOD COUNT 7.9 10^3/uL (4.0-10.0)
[2022-01-20 14:12] LABS: ALBUMIN 3.5 GM/DL (3.2-5.2); ALT/SGPT 37 U/L (12-78); BILIRUBIN,TOTAL 0.7 MG/DL (0.2-1.0); BLOOD UREA NITROGEN 17 MG/DL (7-18); CALCIUM LEVEL 9.2 MG/DL (8.8-10.2); CARBON DIOXIDE LEVEL 27 MEQ/L (21-32); CHLORIDE LEVEL 108 MEQ/L (98-107); CREATININE FOR GFR 0.84 MG/DL (0.70-1.30); FERRITIN 44 NG/ML (26-388); GLOMERULAR FILTRATION RATE > 60.0 (>42); GLUCOSE, FASTING 97 MG/DL (70-100); IRON (FE) 71 UG/DL (65-175); PERCENT SATURATION 21.5 % (19.7-50.0); POTASSIUM SERUM 4.8 MEQ/L (3.5-5.1); SODIUM LEVEL 142 MEQ/L (136-145); TOTAL IRON BINDING CAPACITY 330 UG/DL (250-450)
[2022-01-20 14:46] LABS: VITAMIN B12 LEVEL 526 PG/ML
[2022-01-20 14:47] LABS: FOLATE 20.6 NG/ML
== END ==
LOC: M PLALAB 11:45
PROVIDERS: ATTEND Family Medicine
DX: D64.9 Anemia, unspecified (principal); R53.83 Other fatigue

== ENCOUNTER → 2022-05-04 | Outpatient (CLI) | payer MEDICARE ==
[~2022-05-04] MED LIST changes: +CLOP75TA99 PO; -PLAV1TAB2 PO
[2022-05-04 15:58] LABS: BASO % 0.3 % (0.0-1.0); EOS # 0.1 10^3/uL (0.0-0.5); EOS % 1.4 % (0.0-3.0); HEMOGLOBIN 15.4 g/dl (13.5-17.5); LYMPH # 1.2 10^3/uL (1.5-5.0); LYMPH % 18.9 % (24.0-44.0); MEAN CORPUSCULAR HEMOGLOBIN 29.9 pg (27.0-33.0); MEAN CORPUSCULAR HGB CONC 32.8 g/dl (32.0-36.5); MEAN CORPUSCULAR VOLUME 91.3 fl (80.0-96.0); MONO # 0.6 10^3/uL (0.0-0.8); MONO % 8.6 % (2.0-8.0); NEUTROPHILS # 4.5 10^3/uL (1.5-8.5); NEUTROPHILS % 70.5 % (36.0-66.0); PLATELET COUNT, AUTOMATED 223 10^3/uL (150-450); RED BLOOD COUNT 5.15 10^6/uL (4.30-6.10); WHITE BLOOD COUNT 6.4 10^3/uL (4.0-10.0)
[2022-05-04 16:25] LABS: ERYTHROCYTE SEDIMENTATION RATE 6 mm/hr (0-20)
== END ==
LOC: M PLALAB 14:00
PROVIDERS: ATTEND Allergy & Immunology Allergy
DX: D83.9 Common variable immunodeficiency, unspecified (principal)

== ENCOUNTER → 2022-12-05 | Outpatient (CLI) | payer MEDICARE ==
[~2022-12-05] MED LIST changes: +MONT-5 PO; -SING10TA32 PO
== END ==
LOC: M PLALAB 08:33
PROVIDERS: ATTEND Urology
DX: C61 Malignant neoplasm of prostate (principal)

== ENCOUNTER → 2023-02-28 | Outpatient (CLI) | payer MEDICARE | LOC: M PLAIMG 13:59 | PROVIDERS: ATTEND Otolaryngology | DX: J32.9 Chronic sinusitis, unspecified (principal) ==

== ENCOUNTER → 2023-04-12 | Outpatient (CLI) | payer MEDICARE | LOC: M PLAIMG 13:58 | PROVIDERS: ATTEND Family Medicine | DX: M51.26 Other intervertebral disc displacement, lumbar region (principal); M47.816 Spondylosis without myelopathy or radiculopathy, lumbar region ==

== ENCOUNTER → 2023-04-30 | Outpatient (CLI) | payer MEDICARE ==
[2023-04-30 15:19] LABS: HEMATOCRIT 44.8 % (42.0-52.0); HEMOGLOBIN 14.9 g/dl (13.5-17.5); MEAN CORPUSCULAR HEMOGLOBIN 30.2 pg (27.0-33.0); MEAN CORPUSCULAR HGB CONC 33.3 g/dl (32.0-36.5); MEAN CORPUSCULAR VOLUME 90.9 fl (80.0-96.0); PLATELET COUNT, AUTOMATED 195 10^3/uL (150-450); RED BLOOD COUNT 4.93 10^6/uL (4.30-6.10); WHITE BLOOD COUNT 7.3 10^3/uL (4.0-10.0)
[2023-05-01 07:26] LABS: ALBUMIN 3.3 G/DL (3.2-5.2); ALKALINE PHOSPHATASE 63 U/L (46-116); ALT/SGPT 22 U/L (7.0-40); AST/SGOT 22 U/L (<34); BILIRUBIN,TOTAL 0.5 MG/DL (0.3-1.2); BLOOD UREA NITROGEN 20 MG/DL (9-23); CALCIUM LEVEL 8.8 MG/DL (8.3-10.6); CARBON DIOXIDE LEVEL 29 MMOL/L (20-31); CHLORIDE LEVEL 108 MMOL/L (98-107); CREATININE FOR GFR 0.79 MG/DL (0.70-1.30); GLOMERULAR FILTRATION RATE > 60.0 (>42); GLUCOSE, FASTING 100 MG/DL (74-106); IMMUNOGLOBULIN G 1599 MG/DL (650-1600); SODIUM LEVEL 141 MMOL/L (136-145); TOTAL PROTEIN 6.6 G/DL (5.7-8.2)
== END ==
LOC: M PLALAB 11:50
PROVIDERS: ATTEND Allergy & Immunology Allergy
DX: D83.9 Common variable immunodeficiency, unspecified (principal)

== ENCOUNTER → 2023-05-07 | Outpatient (REF) | payer MEDICARE ==
[2023-05-07 17:59] LABS: BASO % 0.4 % (0.0-1.0); EOS # 0.3 10^3/uL (0.0-0.5); HEMATOCRIT 45.8 % (42.0-52.0); HEMOGLOBIN 15.3 g/dl (13.5-17.5); LYMPH # 1.3 10^3/uL (1.5-5.0); LYMPH % 16.6 % (24.0-44.0); MEAN CORPUSCULAR HEMOGLOBIN 30.8 pg (27.0-33.0); MEAN CORPUSCULAR HGB CONC 33.4 g/dl (32.0-36.5); MEAN CORPUSCULAR VOLUME 92.2 fl (80.0-96.0); MONO # 0.8 10^3/uL (0.0-0.8); MONO % 9.4 % (2.0-8.0); NEUTROPHILS # 5.6 10^3/uL (1.5-8.5); NEUTROPHILS % 69.1 % (36.0-66.0); PLATELET COUNT, AUTOMATED 234 10^3/uL (150-450); RED BLOOD COUNT 4.97 10^6/uL (4.30-6.10); WHITE BLOOD COUNT 8.1 10^3/uL (4.0-10.0)
[2023-05-07 18:18] LABS: ALBUMIN 3.4 G/DL (3.2-5.2); ALKALINE PHOSPHATASE 65 U/L (46-116); ALT/SGPT 21 U/L (7.0-40); AST/SGOT 26 U/L (<34); BILIRUBIN,TOTAL 0.6 MG/DL (0.3-1.2); BLOOD UREA NITROGEN 19 MG/DL (9-23); CALCIUM LEVEL 8.9 MG/DL (8.3-10.6); CARBON DIOXIDE LEVEL 27 MMOL/L (20-31); CHLORIDE LEVEL 105 MMOL/L (98-107); CREATININE FOR GFR 0.86 MG/DL (0.70-1.30); GLOMERULAR FILTRATION RATE > 60.0 (>42); GLUCOSE, FASTING 94 MG/DL (74-106); IMMUNOGLOBULIN G 1564 MG/DL (650-1600); POTASSIUM SERUM 4.4 MMOL/L (3.5-5.1); SODIUM LEVEL 141 MMOL/L (136-145); TOTAL PROTEIN 6.7 G/DL (5.7-8.2)
== END ==
LOC: M PLALAB 16:55
PROVIDERS: ATTEND Allergy & Immunology Allergy
DX: D83.9 Common variable immunodeficiency, unspecified (principal)

== ENCOUNTER 2024-06-16 10:41 | Emergency (ER) | payer MEDICARE ==
[~2024-06-16] VITALS: Ht 182.9 cm; Wt 77.2 kg
[~2024-06-16 10:41] MED LIST changes: +BISO5TAB14 PEG; +CHOL100029 PEG; -CHOL100029 PO; +MONT-5 PEG; -MONT-5 PO; +ZOLP10TA2 PEG; -ZOLP10TA2 PO
[2024-06-16] MEDS ORDERED: ISOVUE-370 76% 100ML VIAL As Ordered ONE (11:00)
[2024-06-16 11:01] VITALS: BP 151/76; TEMP 98.7; O2SAT 95
[2024-06-16 11:13] LABS: BASO % 0.1 % (0.0-1.0); EOS % 0.1 % (0.0-3.0); HEMATOCRIT 51.6 % (42.0-52.0); HEMOGLOBIN 17.3 g/dl (13.5-17.5); LYMPH # 0.7 10^3/uL (1.5-5.0); LYMPH % 3.7 % (24.0-44.0); MEAN CORPUSCULAR HEMOGLOBIN 30.1 pg (27.0-33.0); MEAN CORPUSCULAR HGB CONC 33.5 g/dl (32.0-36.5); MEAN CORPUSCULAR VOLUME 89.7 fl (80.0-96.0); MONO # 1.4 10^3/uL (0.0-0.8); MONO % 7.8 % (2.0-8.0); NEUTROPHILS # 16.2 10^3/uL (1.5-8.5); NEUTROPHILS % 87.7 % (36.0-66.0); PLATELET COUNT, AUTOMATED 263 10^3/uL (150-450); RED BLOOD COUNT 5.75 10^6/uL (4.30-6.10); WHITE BLOOD COUNT 18.4 10^3/uL (4.0-10.0)
[2024-06-16 11:26] LABS: INR 1.1; PARTIAL THROMBOPLASTIN TIME 33.6 SECONDS (24.8-34.2); PROTHROMBIN TIME 14.5 SECONDS (12.5-14.5)
[2024-06-16 11:26] LABS: VENOUS BASE EXCESS -4.2 (-2.0-2.0); VENOUS HCO3 21.8 MMOL/L (23.0-27.0); VENOUS O2 SATURATION 68.8 % (60.0-80.0); VENOUS PARTIAL PRESSURE O2 37.5 mmHg (30.0-50.0); VENOUS PH 7.323 UNITS (7.330-7.430); VENOUS STANDARD HCO3 20.3 MMOL/L; VENOUS TOTAL CO2 23.1 MMOL/L (24.0-28.0)
[2024-06-16 11:39] LABS: ETHYL ALCOHOL (ETHANOL) 0.009 % (0.000-0.010)
[2024-06-16 11:41] LABS: ALBUMIN 3.6 G/DL (3.2-5.2); ALKALINE PHOSPHATASE 79 U/L (40-129); ALT/SGPT 39 U/L (7.0-40); AST/SGOT 91 U/L (<34); BILIRUBIN,DIRECT 0.7 MG/DL (<0.4); BLOOD UREA NITROGEN 28 MG/DL (9-23); CALCIUM LEVEL 9.4 MG/DL (8.3-10.6); CARBON DIOXIDE LEVEL 23 MMOL/L (20-31); CHLORIDE LEVEL 105 MMOL/L (98-107); CREATININE FOR GFR 0.76 MG/DL (0.70-1.30); GLOMERULAR FILTRATION RATE > 60.0 (>42); GLUCOSE, FASTING 144 MG/DL (74-106); POTASSIUM SERUM 4.2 MMOL/L (3.5-5.1); SALICYLATE LEVEL < 3.0 MG/DL (<30); SODIUM LEVEL 141 MMOL/L (136-145)
[2024-06-16 11:43] LABS: OSMOLALITY SERUM 306 MOSM/KG (280-301)
[2024-06-16 11:48] VITALS: BP 135/66; TEMP 98.9; O2SAT 94
[2024-06-16 11:56] LABS: CPK CREATINE PHOSPHOKINASE 1586 U/L (46-171)
[2024-06-16 12:30] VITALS: BP 134/74; TEMP 97.8; O2SAT 95
[2024-06-16 12:42] LABS: KETONE, URINE AUTO RFX 2+ mg/dL (NEGATIVE); LEUKOCYTE ESTERASE UR AUTO RFX NEGATIVE (NEGATIVE); MUCUS, URINE RFX SMALL (NEGATIVE); NITRITE, URINE AUTO RFX NEGATIVE (NEGATIVE); RBC, URINE AUTO RFX 2 /HPF (0-3); SQUAM EPITHELIAL CELL UR AURFX 0 /HPF (0-6); WBC, URINE AUTO RFX 1 /HPF (0-3)
[2024-06-16 13:03] LABS: AMPHETAMINES LEVEL URINE NEGATIVE (NEGATIVE); BARBITURATES URINE NEGATIVE (NEGATIVE); BENZODIAZEPINES URINE NEGATIVE (NEGATIVE); COCAINE METABOLITE URINE NEGATIVE (NEGATIVE); METHADONE URINE NEGATIVE (NEGATIVE); OPIATES URINE NEGATIVE (NEGATIVE); PHENCYCLIDINE URINE NEGATIVE (NEGATIVE)
[2024-06-16 13:20] LABS: CANNABINOIDS URINE POSITIVE (NEGATIVE)
== END 2024-06-16 12:51 | disposition short-term general hospital (02) ==
LOC: M ED 10:41 → EDBD 10:41 → M ED 12:51
DX: I63.9 Cerebral infarction, unspecified (principal); I25.2 Old myocardial infarction; R56.9 Unspecified convulsions; J45.909 Unspecified asthma, uncomplicated; D83.9 Common variable immunodeficiency, unspecified; Z87.891 Personal history of nicotine dependence; Z79.82 Long term (current) use of aspirin; Z79.899 Other long term (current) drug therapy; Z88.8 Allergy status to other drugs, medicaments and biological substances
CPT/HCPCS: 70450; 70496; 70498; 71045; 72125; 80047; 80048; 80076; 80143; 80307; 81001; 82077; 82140; 82550; 82803; 83605; 83930; 84443; 85025; 85610; 85730; 87040; 87486; 87581; 87633; 87798; 93005; 93041; 94760; 99291; 99292; Q9967

== ENCOUNTER → 2024-07-21 | Outpatient (REF) | payer MEDICARE ==
[~2024-07-21] MED LIST changes: -BISO5TAB14 PEG; -CHOL100029 PEG; +CHOL100029 PO; -MONT-5 PEG; +MONT-5 PO; -ZOLP10TA2 PEG; +ZOLP10TA2 PO
[2024-07-21 02:45] LABS: HEMATOCRIT 34.6 % (42.0-52.0); HEMOGLOBIN 11.6 g/dl (13.5-17.5); MEAN CORPUSCULAR HGB CONC 33.5 g/dl (32.0-36.5); MEAN CORPUSCULAR VOLUME 92.5 fl (80.0-96.0); PLATELET COUNT, AUTOMATED 276 10^3/uL (150-450); RED BLOOD COUNT 3.74 10^6/uL (4.30-6.10)
[2024-07-21 18:52] LABS: APPEARANCE, URINE HAZY (CLEAR); BACTERIA, URINE AUTO NEGATIVE (NEGATIVE); BILIRUBIN, URINE AUTO NEGATIVE (NEGATIVE); BLOOD, URINE BLOOD 3+ (NEGATIVE); COLOR, URINE YELLOW (YELLOW); GLUCOSE, URINE (UA) AUTO NEGATIVE (NEGATIVE); KETONE, URINE AUTO NEGATIVE (NEGATIVE); LEUKOCYTE ESTERASE, URINE AUTO NEGATIVE (NEGATIVE); MUCUS, URINE SMALL (NEGATIVE); NITRITE, URINE AUTO NEGATIVE (NEGATIVE); PROTEIN, URINE AUTO 1+ mg/dL (NEGATIVE); RBC, URINE AUTO TNTC /HPF (0-3); SPECIFIC GRAVITY URINE AUTO 1.024 (1.002-1.035); SQUAMOUS EPITHELIAL CELL UR AU 0 /HPF (0-6); WBC, URINE AUTO 2 /HPF (0-3)
== END ==
LOC: SKLAB2 02:00
PROVIDERS: ATTEND Nurse Practitioner Family
DX: I10 Essential (primary) hypertension (principal); N48.89 Other specified disorders of penis

== ENCOUNTER → 2024-07-21 | Outpatient (REF) | payer MEDICARE | LOC: SKLAB2 18:57 | PROVIDERS: ATTEND Internal Medicine | DX: R31.9 Hematuria, unspecified (principal); Z53.9 Procedure and treatment not carried out, unspecified reason ==

== ENCOUNTER → 2024-07-31 | Outpatient (REF) ==
[~2024-07-31] MED LIST changes: +APAP325T4 GT; +ARTIDRO4 OU; +BISO5TAB14 PEG; +CHOL100029 PEG; -CHOL100029 PO; +DULC10SU2 PR; +ELIQ5TAB PEG; +ERYT5OIN25 OD; +ESOM40SU PEG; +EZET10TA21 PEG; +FLEEENE12 PR; +HALO0.5H PO; +MESA50SU PR; +MIRT1TAB PEG; +MOM30SS PO; +MONT-5 PEG; -MONT-5 PO; +VITA-168 PEG; +ZOLP10TA2 PEG; -ZOLP10TA2 PO
[2024-07-31 07:13] LABS: HEMATOCRIT 36.5 % (42.0-52.0); HEMOGLOBIN 11.8 g/dl (13.5-17.5); MEAN CORPUSCULAR HEMOGLOBIN 30.6 pg (27.0-33.0); MEAN CORPUSCULAR HGB CONC 32.3 g/dl (32.0-36.5); MEAN CORPUSCULAR VOLUME 94.6 fl (80.0-96.0); PLATELET COUNT, AUTOMATED 277 10^3/uL (150-450); RED BLOOD COUNT 3.86 10^6/uL (4.30-6.10); WHITE BLOOD COUNT 7.4 10^3/uL (4.0-10.0)
[2024-07-31 07:45] LABS: ALBUMIN 2.5 G/DL (3.2-5.2); ALKALINE PHOSPHATASE 69 U/L (40-129); ALT/SGPT 18 U/L (7.0-40); AST/SGOT 26 U/L (<34); BILIRUBIN,TOTAL 0.6 MG/DL (0.3-1.2); BLOOD UREA NITROGEN 26 MG/DL (9-23); CALCIUM LEVEL 8.6 MG/DL (8.3-10.6); CARBON DIOXIDE LEVEL 27 MMOL/L (20-31); CHLORIDE LEVEL 111 MMOL/L (98-107); CHOLESTEROL LEVEL 91 MG/DL (<200); CHOLESTEROL RISK RATIO 3.34 (<5); CREATININE FOR GFR 0.67 MG/DL (0.70-1.30); GLOMERULAR FILTRATION RATE > 60.0 (>42); GLUCOSE, FASTING 140 MG/DL (74-106); HDL CHOLESTEROL 27.2 MG/DL (>40); LDL CHOLESTEROL 49.4 MG/DL (<100); NON-HDL-C 63.8 MG/DL; POTASSIUM SERUM 3.9 MMOL/L (3.5-5.1); SODIUM LEVEL 144 MMOL/L (136-145); TOTAL PROTEIN 5.1 G/DL (5.7-8.2); TRIGLYCERIDES LEVEL 72 MG/DL (<150)
== END ==
LOC: SKLAB2 07:00
PROVIDERS: ATTEND Internal Medicine
DX: I10 Essential (primary) hypertension (principal); E78.5 Hyperlipidemia, unspecified

== ENCOUNTER 2024-08-04 02:58 | Observation (INO) | payer MEDICARE ==
[~2024-08-04] VITALS: Ht 180.3 cm; Wt 72.2 kg
[~2024-08-04 02:58] MED LIST changes: -APAP325T4 GT; -ARTIDRO4 OU; -DULC10SU2 PR; -ELIQ5TAB PEG; -ERYT5OIN25 OD; -ESOM40SU PEG; -EZET10TA21 PEG; -FLEEENE12 PR; -HALO0.5H PO; -MESA50SU PR; -MIRT1TAB PEG; -MOM30SS PO; -VITA-168 PEG
[2024-08-04 03:33] LABS: BASO % 0.4 % (0.0-1.0); EOS # 0.6 10^3/uL (0.0-0.5); HEMATOCRIT 36.8 % (42.0-52.0); HEMOGLOBIN 12.1 g/dl (13.5-17.5); LYMPH # 1.3 10^3/uL (1.5-5.0); MEAN CORPUSCULAR HEMOGLOBIN 30.8 pg (27.0-33.0); MEAN CORPUSCULAR HGB CONC 32.9 g/dl (32.0-36.5); MEAN CORPUSCULAR VOLUME 93.6 fl (80.0-96.0); MONO % 11.2 % (2.0-8.0); NEUTROPHILS # 6.1 10^3/uL (1.5-8.5); NEUTROPHILS % 66.9 % (36.0-66.0); PLATELET COUNT, AUTOMATED 295 10^3/uL (150-450); RED BLOOD COUNT 3.93 10^6/uL (4.30-6.10); WHITE BLOOD COUNT 9.2 10^3/uL (4.0-10.0)
[2024-08-04 03:44] LABS: INR 1.29; PARTIAL THROMBOPLASTIN TIME 30.1 SECONDS (24.8-34.2); PROTHROMBIN TIME 16.4 SECONDS (12.5-14.5)
[2024-08-04 04:00] LABS: ALBUMIN 2.7 G/DL (3.2-5.2); ALKALINE PHOSPHATASE 75 U/L (40-129); ALT/SGPT 20 U/L (7.0-40); AST/SGOT 25 U/L (<34); BILIRUBIN,TOTAL 0.6 MG/DL (0.3-1.2); BLOOD UREA NITROGEN 25 MG/DL (9-23); CALCIUM LEVEL 8.4 MG/DL (8.3-10.6); CARBON DIOXIDE LEVEL 26 MMOL/L (20-31); CHLORIDE LEVEL 105 MMOL/L (98-107); CREATININE FOR GFR 0.74 MG/DL (0.70-1.30); GLOMERULAR FILTRATION RATE > 60.0 (>42); GLUCOSE, FASTING 99 MG/DL (74-106); SODIUM LEVEL 141 MMOL/L (136-145); TOTAL PROTEIN 5.7 G/DL (5.7-8.2)
[2024-08-04] MEDS ORDERED: ISOVUE-370 76% 100ML VIAL As Ordered ONE (06:55)
[2024-08-04] MEDS: ADVAIR HFA 115/21MCG INHALER INH SCH (08:00)
[2024-08-04 08:15] LABS: HEMOGLOBIN 11.7 g/dl (13.5-17.5); MEAN CORPUSCULAR HEMOGLOBIN 30.5 pg (27.0-33.0); MEAN CORPUSCULAR HGB CONC 32.5 g/dl (32.0-36.5); MEAN CORPUSCULAR VOLUME 93.8 fl (80.0-96.0); PLATELET COUNT, AUTOMATED 268 10^3/uL (150-450); RED BLOOD COUNT 3.84 10^6/uL (4.30-6.10); WHITE BLOOD COUNT 8.3 10^3/uL (4.0-10.0)
[2024-08-04] MEDS ORDERED: EZET10TA21 PEG (09:56)
[2024-08-04] MEDS ORDERED: HALO0.5H PO (09:56)
[2024-08-04] MEDS ORDERED: ACETAMINOPHEN 325 MG TAB PO PRN (10:20)
[2024-08-04] MEDS ORDERED: MOM 30ML SUSPENSION UDC PO PRN (10:20)
[2024-08-04] MEDS ORDERED: ARTIDRO4 OU (10:30)
[2024-08-04] MEDS ORDERED: MOM30SS PO (10:30)
[2024-08-04] MEDS ORDERED: MESA50SU PR (10:30)
[2024-08-04] MEDS ORDERED: ELIQ5TAB PEG (10:30)
[2024-08-04] MEDS ORDERED: APAP325T4 GT (10:30)
[2024-08-04] MEDS ORDERED: ESOM40SU PEG (10:30)
[2024-08-04] MEDS ORDERED: MIRT1TAB PEG (10:30)
[2024-08-04] MEDS ORDERED: ERYT5OIN25 OD (10:30)
[2024-08-04] MEDS ORDERED: FLEEENE12 PR (10:30)
[2024-08-04] MEDS ORDERED: DULC10SU2 PR (10:30)
[2024-08-04] MEDS ORDERED: VITA-168 PEG (10:42)
[2024-08-04] MEDS ORDERED: HOME MED LIST COMPLETE! XX SCH (10:45)
[2024-08-04 16:17] LABS: HEMATOCRIT 37.4 % (42.0-52.0); HEMOGLOBIN 12.3 g/dl (13.5-17.5); MEAN CORPUSCULAR HEMOGLOBIN 30.3 pg (27.0-33.0); MEAN CORPUSCULAR HGB CONC 32.9 g/dl (32.0-36.5); MEAN CORPUSCULAR VOLUME 92.1 fl (80.0-96.0); PLATELET COUNT, AUTOMATED 285 10^3/uL (150-450); RED BLOOD COUNT 4.06 10^6/uL (4.30-6.10); WHITE BLOOD COUNT 7.9 10^3/uL (4.0-10.0)
[2024-08-04 16:51] VITALS: BP 129/63; TEMP 97.2; O2SAT 94
[2024-08-04] MEDS: EZETIMIBE 10MG TABLET (ZETIA) PEG SCH (17:05)
[2024-08-04] MEDS: OMEPRAZOLE/SODIUM BICARB 20-840MG 10ML ORAL SYRINGE GT SCH (17:05)
[2024-08-04] MEDS: VITAMIN D 1,000 INTERNATIONAL UNITS TABLET PEG SCH (17:05)
[2024-08-04 18:39] LABS: HEMATOCRIT 37.9 % (42.0-52.0); HEMOGLOBIN 12.5 g/dl (13.5-17.5); MEAN CORPUSCULAR HEMOGLOBIN 30.9 pg (27.0-33.0); MEAN CORPUSCULAR VOLUME 93.6 fl (80.0-96.0); PLATELET COUNT, AUTOMATED 290 10^3/uL (150-450); RED BLOOD COUNT 4.05 10^6/uL (4.30-6.10); WHITE BLOOD COUNT 7.1 10^3/uL (4.0-10.0)
[2024-08-04 19:56] VITALS: BP 118/66; TEMP 98; O2SAT 92
[2024-08-04] MEDS: MESALAMINE 1,000 MG SUPP PR SCH (21:00)
[2024-08-04] MEDS: MIRTAZAPINE 7.5MG PER 1/2 TABLET PEG SCH (22:07)
[2024-08-04] MEDS: zolPIDEM TARTRATE 5 MG TAB PEG SCH (22:07)
[2024-08-04] MEDS: haloperidoL 0.5 MG TAB PO SCH (22:08)
[2024-08-04] MEDS: MONTELUKAST 10 MG TAB PEG SCH (22:09)
[2024-08-04 23:46] VITALS: BP 126/57; TEMP 97.8; O2SAT 97
[2024-08-05 04:22] VITALS: BP 116/58; TEMP 98; O2SAT 94
[2024-08-05 07:35] VITALS: BP 119/69; TEMP 98.3; O2SAT 97
[2024-08-05 08:19] LABS: HEMATOCRIT 38.8 % (42.0-52.0); HEMOGLOBIN 12.9 g/dl (13.5-17.5); MEAN CORPUSCULAR HEMOGLOBIN 30.7 pg (27.0-33.0); MEAN CORPUSCULAR HGB CONC 33.2 g/dl (32.0-36.5); MEAN CORPUSCULAR VOLUME 92.4 fl (80.0-96.0); PLATELET COUNT, AUTOMATED 292 10^3/uL (150-450); WHITE BLOOD COUNT 9.3 10^3/uL (4.0-10.0)
[2024-08-05 08:54] LABS: BLOOD UREA NITROGEN 21 MG/DL (9-23); CARBON DIOXIDE LEVEL 26 MMOL/L (20-31); CHLORIDE LEVEL 107 MMOL/L (98-107); CREATININE FOR GFR 0.79 MG/DL (0.70-1.30); GLOMERULAR FILTRATION RATE > 60.0 (>42); GLUCOSE, FASTING 112 MG/DL (74-106); POTASSIUM SERUM 4.2 MMOL/L (3.5-5.1); SODIUM LEVEL 143 MMOL/L (136-145)
[2024-08-05 11:44] VITALS: BP 116/67; TEMP 97.7; O2SAT 97
[2024-08-05 15:59] VITALS: BP 121/64; TEMP 97.8; O2SAT 96
[2024-08-05 20:13] VITALS: BP 108/68; TEMP 97.9; O2SAT 93
[2024-08-05] MEDS: SUCRALFATE SUSP 1GM/10ML UD XX SCH (22:00)
[2024-08-06] VITALS (9 sets, daily range): BP systolic 102–127; BP diastolic 58–75; TEMP 96.1–97.9; O2SAT 94–97
[2024-08-06 05:45] LABS: BASO % 0.3 % (0.0-1.0); EOS # 0.5 10^3/uL (0.0-0.5); EOS % 4.4 % (0.0-3.0); HEMOGLOBIN 13.1 g/dl (13.5-17.5); LYMPH # 1.2 10^3/uL (1.5-5.0); MEAN CORPUSCULAR HEMOGLOBIN 30.1 pg (27.0-33.0); MEAN CORPUSCULAR HGB CONC 33.6 g/dl (32.0-36.5); MEAN CORPUSCULAR VOLUME 89.7 fl (80.0-96.0); MONO # 1.1 10^3/uL (0.0-0.8); MONO % 10.1 % (2.0-8.0); NEUTROPHILS # 7.9 10^3/uL (1.5-8.5); NEUTROPHILS % 73.7 % (36.0-66.0); PLATELET COUNT, AUTOMATED 334 10^3/uL (150-450); RED BLOOD COUNT 4.35 10^6/uL (4.30-6.10); WHITE BLOOD COUNT 10.7 10^3/uL (4.0-10.0)
[2024-08-06 06:12] LABS: BLOOD UREA NITROGEN 25 MG/DL (9-23); CARBON DIOXIDE LEVEL 22 MMOL/L (20-31); CHLORIDE LEVEL 109 MMOL/L (98-107); CREATININE FOR GFR 0.73 MG/DL (0.70-1.30); GLOMERULAR FILTRATION RATE > 60.0 (>42); GLUCOSE, FASTING 154 MG/DL (74-106); POTASSIUM SERUM 3.7 MMOL/L (3.5-5.1); SODIUM LEVEL 142 MMOL/L (136-145)
[2024-08-06 08:47] LABS: PROCALCITONIN 0.09 ng/ml
[2024-08-06] MEDS ORDERED: VARIBAR PUDDING 40% w/v 230ML TUBE As Ordered ONE (11:26)
[2024-08-06] MEDS ORDERED: E-Z-PAQUE 96% w/w SUSP 176GM BTL As Ordered ONE (11:27)
[2024-08-06] MEDS ORDERED: VARIBAR NECTAR 40% w/v 240ML SUSP BTL As Ordered ONE (11:27)
[2024-08-06] MEDS ORDERED: BARIUM SULFATE 700 MG TABLET (E-Z-DISK) As Ordered ONE (11:27)
[2024-08-06 12:21] LABS: KETONE, URINE AUTO RFX NEGATIVE (NEGATIVE); LEUKOCYTE ESTERASE UR AUTO RFX 2+ (NEGATIVE); MUCUS, URINE RFX LARGE (NEGATIVE); NITRITE, URINE AUTO RFX NEGATIVE (NEGATIVE); RBC, URINE AUTO RFX 182 /HPF (0-3); SQUAM EPITHELIAL CELL UR AURFX 1 /HPF (0-6); WBC, URINE AUTO RFX 123 /HPF (0-3)
[2024-08-06] MEDS: APIXABAN 2.5 MG TAB (ELIQUIS) PO SCH (13:14)
[2024-08-06] MEDS: cefTRIAXone SOD 1 GM in DEXTROSE 5% (D5W) ADV/MINI-BAG 50 ML IV SCH (14:06)
[2024-08-06] MEDS: bisoproloL fumarate 5 MG TAB PEG SCH (14:12)
[2024-08-06] MEDS: MIRTAZAPINE 7.5MG PER 1/2 TABLET PO SCH (22:39)
[2024-08-06] MEDS: MONTELUKAST 10 MG TAB PO SCH (22:39)
[2024-08-06] MEDS: zolPIDEM TARTRATE 5 MG TAB PO SCH (22:40)
[2024-08-07 04:00] VITALS: BP 116/64; TEMP 97.9; O2SAT 97
[2024-08-07 06:31] LABS: BASO % 0.4 % (0.0-1.0); EOS # 0.7 10^3/uL (0.0-0.5); EOS % 6.7 % (0.0-3.0); HEMATOCRIT 38.7 % (42.0-52.0); HEMOGLOBIN 12.6 g/dl (13.5-17.5); LYMPH # 1.2 10^3/uL (1.5-5.0); LYMPH % 12.3 % (24.0-44.0); MEAN CORPUSCULAR HEMOGLOBIN 30.4 pg (27.0-33.0); MEAN CORPUSCULAR HGB CONC 32.6 g/dl (32.0-36.5); MEAN CORPUSCULAR VOLUME 93.3 fl (80.0-96.0); MONO # 1.1 10^3/uL (0.0-0.8); MONO % 11.2 % (2.0-8.0); NEUTROPHILS # 6.7 10^3/uL (1.5-8.5); PLATELET COUNT, AUTOMATED 317 10^3/uL (150-450); RED BLOOD COUNT 4.15 10^6/uL (4.30-6.10); WHITE BLOOD COUNT 9.7 10^3/uL (4.0-10.0)
[2024-08-07 06:55] LABS: BLOOD UREA NITROGEN 28 MG/DL (9-23); CALCIUM LEVEL 8.4 MG/DL (8.3-10.6); CARBON DIOXIDE LEVEL 25 MMOL/L (20-31); CHLORIDE LEVEL 107 MMOL/L (98-107); CREATININE FOR GFR 0.74 MG/DL (0.70-1.30); GLOMERULAR FILTRATION RATE > 60.0 (>42); GLUCOSE, FASTING 106 MG/DL (74-106); POTASSIUM SERUM 3.7 MMOL/L (3.5-5.1); SODIUM LEVEL 146 MMOL/L (136-145)
[2024-08-07] MEDS: D5W 1,000 ML IV SCH (07:25)
[2024-08-07 08:00] VITALS: BP 115/86; TEMP 97.5; O2SAT 93
[2024-08-07] MEDS: EZETIMIBE 10MG TABLET (ZETIA) PO SCH (09:00)
[2024-08-07] MEDS: VITAMIN D 1,000 INTERNATIONAL UNITS TABLET PO SCH (09:00)
[2024-08-07] MEDS: bisoproloL fumarate 5 MG TAB PO SCH (09:00)
[2024-08-07] MEDS ORDERED: LEVO75TAB PO (10:14)
[2024-08-07] MEDS ORDERED: SUCR1ORA PR (10:14)
[2024-08-07] MEDS ORDERED: ELIQ2.5T PO (10:14)
[2024-08-07 12:00] VITALS: BP_SYST 120; BP_SYST 144; BP_DIAS 74; BP_DIAS 87; TEMP 97.3; TEMP 97.7; O2SAT 94; O2SAT 96
== END 2024-08-07 13:55 ==
LOC: M ED 02:58 → M ED INP 10:16 → INTOOBSV 10:16 → M PCU 16:35 → M MSPAV 08-06 17:47
PROVIDERS: ADMIT Student in an Organized Health Care Education/Training Program; ATTEND Internal Medicine
DX: K62.5 Hemorrhage of anus and rectum (principal); K62.7 Radiation proctitis; Z79.01 Long term (current) use of anticoagulants; F01.50 Vascular dementia, unspecified severity, without behavioral disturbance, psychotic disturbance, mood disturbance, and anxiety; I48.0 Paroxysmal atrial fibrillation; N32.89 Other specified disorders of bladder; I69.392 Facial weakness following cerebral infarction; I69.328 Other speech and language deficits following cerebral infarction; I69.391 Dysphagia following cerebral infarction; I69.351 Hemiplegia and hemiparesis following cerebral infarction affecting right dominant side; N39.0 Urinary tract infection, site not specified; B96.1 Klebsiella pneumoniae [K. pneumoniae] as the cause of diseases classified elsewhere; E87.0 Hyperosmolality and hypernatremia; F39 Unspecified mood [affective] disorder; I25.10 Atherosclerotic heart disease of native coronary artery without angina pectoris; I25.2 Old myocardial infarction; G40.909 Epilepsy, unspecified, not intractable, without status epilepticus; J45.909 Unspecified asthma, uncomplicated; Z85.46 Personal history of malignant neoplasm of prostate; Z92.3 Personal history of irradiation; Z93.1 Gastrostomy status; Z87.891 Personal history of nicotine dependence; Z90.49 Acquired absence of other specified parts of digestive tract; Z88.5 Allergy status to narcotic agent; Z88.1 Allergy status to other antibiotic agents; Z79.899 Other long term (current) drug therapy; Z79.51 Long term (current) use of inhaled steroids
CPT/HCPCS: 36415; 74174; 74230; 80048; 80053; 81001; 84145; 85025; 85027; 85610; 85730; 86850; 86900; 86901; 87088; 87186; 87426; 92526; 92611; 94640; 96365; 99285; G0378; J0696; Q9967

== ENCOUNTER → 2024-08-14 | Outpatient (REF) ==
[~2024-08-14] MED LIST changes: +APAP325T4 GT; +ARTIDRO4 OU; +DULC10SU2 PR; +ELIQ2.5T PO; +ELIQ5TAB PEG; +ERYT5OIN25 OD; +ESOM40SU PEG; +EZET10TA21 PEG; +FLEEENE12 PR; +HALO0.5H PO; +LEVO75TAB PO; +MESA50SU PR; +MIRT1TAB PEG; +MOM30SS PO; +SUCR1ORA PR; +VITA-168 PEG
[2024-08-14 07:39] LABS: HEMATOCRIT 32.1 % (42.0-52.0); HEMOGLOBIN 10.5 g/dl (13.5-17.5); MEAN CORPUSCULAR HEMOGLOBIN 29.5 pg (27.0-33.0); MEAN CORPUSCULAR HGB CONC 32.7 g/dl (32.0-36.5); MEAN CORPUSCULAR VOLUME 90.2 fl (80.0-96.0); PLATELET COUNT, AUTOMATED 246 10^3/uL (150-450); RED BLOOD COUNT 3.56 10^6/uL (4.30-6.10); WHITE BLOOD COUNT 7.5 10^3/uL (4.0-10.0)
[2024-08-14 08:04] LABS: BLOOD UREA NITROGEN 24 MG/DL (9-23); CALCIUM LEVEL 8.3 MG/DL (8.3-10.6); CARBON DIOXIDE LEVEL 24 MMOL/L (20-31); CHLORIDE LEVEL 110 MMOL/L (98-107); CREATININE FOR GFR 0.77 MG/DL (0.70-1.30); GLOMERULAR FILTRATION RATE > 60.0 (>42); GLUCOSE, FASTING 115 MG/DL (74-106); SODIUM LEVEL 143 MMOL/L (136-145)
== END ==
LOC: SKLAB2 07:00
PROVIDERS: ATTEND Internal Medicine
DX: K92.2 Gastrointestinal hemorrhage, unspecified (principal)

== ENCOUNTER → 2024-08-21 | Outpatient (REF) ==
[2024-08-21 07:13] LABS: HEMATOCRIT 31.8 % (42.0-52.0); HEMOGLOBIN 10.3 g/dl (13.5-17.5); MEAN CORPUSCULAR HEMOGLOBIN 28.9 pg (27.0-33.0); MEAN CORPUSCULAR HGB CONC 32.4 g/dl (32.0-36.5); MEAN CORPUSCULAR VOLUME 89.1 fl (80.0-96.0); PLATELET COUNT, AUTOMATED 269 10^3/uL (150-450); RED BLOOD COUNT 3.57 10^6/uL (4.30-6.10); WHITE BLOOD COUNT 7.6 10^3/uL (4.0-10.0)
[2024-08-21 07:43] LABS: BLOOD UREA NITROGEN 21 MG/DL (9-23); CALCIUM LEVEL 8.6 MG/DL (8.3-10.6); CARBON DIOXIDE LEVEL 27 MMOL/L (20-31); CHLORIDE LEVEL 110 MMOL/L (98-107); CREATININE FOR GFR 0.76 MG/DL (0.70-1.30); GLOMERULAR FILTRATION RATE > 60.0 (>42); GLUCOSE, FASTING 130 MG/DL (74-106); POTASSIUM SERUM 4.2 MMOL/L (3.5-5.1); SODIUM LEVEL 145 MMOL/L (136-145)
== END ==
LOC: SKLAB2 07:00
PROVIDERS: ATTEND Internal Medicine
DX: K92.2 Gastrointestinal hemorrhage, unspecified (principal); I10 Essential (primary) hypertension

== ENCOUNTER → 2024-08-28 | Outpatient (REF) ==
[2024-08-28 09:22] LABS: HEMATOCRIT 33.2 % (42.0-52.0); HEMOGLOBIN 10.6 g/dl (13.5-17.5); MEAN CORPUSCULAR HEMOGLOBIN 27.9 pg (27.0-33.0); MEAN CORPUSCULAR HGB CONC 31.9 g/dl (32.0-36.5); MEAN CORPUSCULAR VOLUME 87.4 fl (80.0-96.0); PLATELET COUNT, AUTOMATED 297 10^3/uL (150-450); WHITE BLOOD COUNT 5.4 10^3/uL (4.0-10.0)
[2024-08-28 09:53] LABS: BLOOD UREA NITROGEN 19 MG/DL (9-23); CALCIUM LEVEL 8.1 MG/DL (8.3-10.6); CARBON DIOXIDE LEVEL 28 MMOL/L (20-31); CHLORIDE LEVEL 107 MMOL/L (98-107); GLUCOSE, FASTING 101 MG/DL (74-106); POTASSIUM SERUM 4.1 MMOL/L (3.5-5.1); SODIUM LEVEL 142 MMOL/L (136-145)
[2024-08-28 09:58] LABS: CREATININE FOR GFR 0.83 MG/DL (0.70-1.30); GLOMERULAR FILTRATION RATE > 60.0 (>42)
== END ==
LOC: SKLAB2 07:00
PROVIDERS: ATTEND Internal Medicine
DX: K92.2 Gastrointestinal hemorrhage, unspecified (principal)

== ENCOUNTER → 2024-09-29 | Outpatient (REF) ==
[2024-09-29 13:00] LABS: HEMATOCRIT 42.5 % (42.0-52.0); HEMOGLOBIN 13.3 g/dl (13.5-17.5); MEAN CORPUSCULAR HEMOGLOBIN 25.8 pg (27.0-33.0); MEAN CORPUSCULAR HGB CONC 31.3 g/dl (32.0-36.5); MEAN CORPUSCULAR VOLUME 82.5 fl (80.0-96.0); PLATELET COUNT, AUTOMATED 285 10^3/uL (150-450); RED BLOOD COUNT 5.15 10^6/uL (4.30-6.10); WHITE BLOOD COUNT 10.9 10^3/uL (4.0-10.0)
[2024-09-29 13:36] LABS: BLOOD UREA NITROGEN 18 MG/DL (9-23); CALCIUM LEVEL 8.6 MG/DL (8.3-10.6); CARBON DIOXIDE LEVEL 25 MMOL/L (20-31); CHLORIDE LEVEL 105 MMOL/L (98-107); CREATININE FOR GFR 0.77 MG/DL (0.70-1.30); GLOMERULAR FILTRATION RATE > 60.0 (>42); GLUCOSE, FASTING 108 MG/DL (74-106); POTASSIUM SERUM 4.1 MMOL/L (3.5-5.1); SODIUM LEVEL 141 MMOL/L (136-145)
== END ==
LOC: SKLAB2 09:59
PROVIDERS: ATTEND Internal Medicine
DX: R19.7 Diarrhea, unspecified (principal)

== ENCOUNTER → 2024-09-29 | Outpatient (REF) | LOC: SKLAB2 15:13 | PROVIDERS: ATTEND Internal Medicine | DX: R11.2 Nausea with vomiting, unspecified (principal); R19.7 Diarrhea, unspecified ==

== ENCOUNTER → 2024-10-01 | Outpatient (REF) ==
[2024-10-01 13:28] LABS: HEMATOCRIT 42.6 % (42.0-52.0); HEMOGLOBIN 13.4 g/dl (13.5-17.5); MEAN CORPUSCULAR HEMOGLOBIN 25.4 pg (27.0-33.0); MEAN CORPUSCULAR HGB CONC 31.5 g/dl (32.0-36.5); MEAN CORPUSCULAR VOLUME 80.7 fl (80.0-96.0); PLATELET COUNT, AUTOMATED 321 10^3/uL (150-450); RED BLOOD COUNT 5.28 10^6/uL (4.30-6.10); WHITE BLOOD COUNT 9.7 10^3/uL (4.0-10.0)
[2024-10-01 14:02] LABS: ALBUMIN 3.3 G/DL (3.2-5.2); ALKALINE PHOSPHATASE 86 U/L (40-129); ALT/SGPT 21 U/L (7.0-40); AST/SGOT 39 U/L (<34); BILIRUBIN,TOTAL 1.4 MG/DL (0.3-1.2); BLOOD UREA NITROGEN 23 MG/DL (9-23); CARBON DIOXIDE LEVEL 25 MMOL/L (20-31); CHLORIDE LEVEL 102 MMOL/L (98-107); CREATININE FOR GFR 0.79 MG/DL (0.70-1.30); GLOMERULAR FILTRATION RATE > 60.0 (>42); GLUCOSE, FASTING 137 MG/DL (74-106); MAGNESIUM LEVEL 1.7 MG/DL (1.8-2.4); POTASSIUM SERUM 3.9 MMOL/L (3.5-5.1); SODIUM LEVEL 136 MMOL/L (136-145); TOTAL PROTEIN 6.6 G/DL (5.7-8.2)
== END ==
LOC: SKLAB2 12:45
PROVIDERS: ATTEND Internal Medicine
DX: R19.7 Diarrhea, unspecified (principal)

== ENCOUNTER → 2024-10-10 | Outpatient (REF) ==
[2024-10-10 07:21] LABS: ALBUMIN 2.5 G/DL (3.2-5.2); ALKALINE PHOSPHATASE 68 U/L (40-129); ALT/SGPT 14 U/L (7.0-40); AST/SGOT 14 U/L (<34); BILIRUBIN,TOTAL 0.7 MG/DL (0.3-1.2); BLOOD UREA NITROGEN 13 MG/DL (9-23); CALCIUM LEVEL 8.5 MG/DL (8.3-10.6); CARBON DIOXIDE LEVEL 24 MMOL/L (20-31); CHLORIDE LEVEL 109 MMOL/L (98-107); CREATININE FOR GFR 0.67 MG/DL (0.70-1.30); GLOMERULAR FILTRATION RATE > 60.0 (>42); GLUCOSE, FASTING 93 MG/DL (74-106); SODIUM LEVEL 140 MMOL/L (136-145); TOTAL PROTEIN 5.2 G/DL (5.7-8.2)
== END ==
LOC: SKLAB2 07:00
PROVIDERS: ATTEND Internal Medicine
DX: E80.6 Other disorders of bilirubin metabolism (principal)

== ENCOUNTER → 2024-10-15 | Outpatient (REF) | LOC: M RAD 14:34 | PROVIDERS: ATTEND Internal Medicine | DX: Z00.00 Encounter for general adult medical examination without abnormal findings (principal) ==

== ENCOUNTER → 2024-10-23 | Outpatient (REF) ==
[2024-10-23 11:13] LABS: BASO % 0.3 % (0.0-1.0); EOS # 0.4 10^3/uL (0.0-0.5); EOS % 7.2 % (0.0-3.0); HEMATOCRIT 40.3 % (42.0-52.0); HEMOGLOBIN 12.5 g/dl (13.5-17.5); LYMPH # 1.2 10^3/uL (1.5-5.0); LYMPH % 20.7 % (24.0-44.0); MEAN CORPUSCULAR HEMOGLOBIN 24.3 pg (27.0-33.0); MEAN CORPUSCULAR VOLUME 78.3 fl (80.0-96.0); MONO # 0.5 10^3/uL (0.0-0.8); MONO % 8.5 % (2.0-8.0); NEUTROPHILS # 3.8 10^3/uL (1.5-8.5); NEUTROPHILS % 63.1 % (36.0-66.0); PLATELET COUNT, AUTOMATED 333 10^3/uL (150-450); RED BLOOD COUNT 5.15 10^6/uL (4.30-6.10)
[2024-10-23 11:39] LABS: ALBUMIN 3.2 G/DL (3.2-5.2); ALKALINE PHOSPHATASE 85 U/L (40-129); ALT/SGPT 20 U/L (7.0-40); AST/SGOT 28 U/L (<34); BILIRUBIN,TOTAL 0.7 MG/DL (0.3-1.2); BLOOD UREA NITROGEN 21 MG/DL (9-23); CALCIUM LEVEL 9.1 MG/DL (8.3-10.6); CARBON DIOXIDE LEVEL 26 MMOL/L (20-31); CHLORIDE LEVEL 107 MMOL/L (98-107); CREATININE FOR GFR 0.78 MG/DL (0.70-1.30); GLOMERULAR FILTRATION RATE > 90.0 (>42); GLUCOSE, FASTING 121 MG/DL (74-106); SODIUM LEVEL 143 MMOL/L (136-145); TOTAL PROTEIN 6.4 G/DL (5.7-8.2)
== END ==
LOC: SKLAB2 09:59
PROVIDERS: ATTEND Internal Medicine
DX: I10 Essential (primary) hypertension (principal)

== ENCOUNTER 2024-10-30 16:30 | Observation (INO) | payer MEDICARE ==
[~2024-10-30] VITALS: Ht 167.6 cm; Wt 70.5 kg
[~2024-10-30 16:30] MED LIST changes: -BISO5TAB14 PEG; +EZET10TA21 PO; -MONT-5 PEG; +MONT-5 PO; -ZOLP10TA2 PEG; +ZOLP10TA2 PO
[2024-10-30 17:24] LABS: BASO % 0.1 % (0.0-1.0); EOS # 0.2 10^3/uL (0.0-0.5); EOS % 3.3 % (0.0-3.0); HEMATOCRIT 41.4 % (42.0-52.0); HEMOGLOBIN 12.9 g/dl (13.5-17.5); LYMPH # 0.9 10^3/uL (1.5-5.0); LYMPH % 13.4 % (24.0-44.0); MEAN CORPUSCULAR HEMOGLOBIN 24.3 pg (27.0-33.0); MEAN CORPUSCULAR HGB CONC 31.2 g/dl (32.0-36.5); MONO # 0.9 10^3/uL (0.0-0.8); MONO % 12.2 % (2.0-8.0); NEUTROPHILS % 70.6 % (36.0-66.0); PLATELET COUNT, AUTOMATED 288 10^3/uL (150-450); RED BLOOD COUNT 5.31 10^6/uL (4.30-6.10)
[2024-10-30 17:38] LABS: INR 1.09; PARTIAL THROMBOPLASTIN TIME 30.5 SECONDS (24.8-34.2); PROTHROMBIN TIME 14.4 SECONDS (12.5-14.5)
[2024-10-30 17:48] LABS: LIPASE 24 U/L (12-53)
[2024-10-30 17:50] LABS: ALBUMIN 3.6 G/DL (3.2-5.2); ALKALINE PHOSPHATASE 96 U/L (40-129); ALT/SGPT 18 U/L (7.0-40); AMYLASE 36 U/L (30-118); AST/SGOT 29 U/L (<34); BILIRUBIN,DIRECT 0.3 MG/DL (<0.4); BILIRUBIN,TOTAL 0.8 MG/DL (0.3-1.2); BLOOD UREA NITROGEN 18 MG/DL (9-23); CALCIUM LEVEL 9.2 MG/DL (8.3-10.6); CARBON DIOXIDE LEVEL 26 MMOL/L (20-31); CHLORIDE LEVEL 105 MMOL/L (98-107); CREATININE FOR GFR 0.72 MG/DL (0.70-1.30); GLOMERULAR FILTRATION RATE > 90.0 (>42); GLUCOSE, FASTING 107 MG/DL (74-106); POTASSIUM SERUM 3.6 MMOL/L (3.5-5.1); SODIUM LEVEL 141 MMOL/L (136-145); TOTAL PROTEIN 6.9 G/DL (5.7-8.2)
[2024-10-30] MEDS ORDERED: HYDR28OI7 TP (20:06)
[2024-10-30] MEDS ORDERED: CARB15DR33 OU (20:19)
[2024-10-30] MEDS ORDERED: ESOM20CA2 PO (20:19)
[2024-10-30] MEDS ORDERED: MIRT-88 PO (20:19)
[2024-10-30] MEDS ORDERED: APAP325T4 PO (20:19)
[2024-10-30] MEDS ORDERED: ELIQ2.5T PO (20:19)
[2024-10-30] MEDS ORDERED: HOME MED LIST COMPLETE! XX SCH (20:30)
[2024-10-31] MEDS ORDERED: NITROGLYCERIN 0.4MG SUBL TABLET SL PRN (02:50)
[2024-10-31] MEDS ORDERED: POLYVINYL ALCOHOL OPHTH SOLN 15ML (LIQUITEARS) OU PRN (02:50)
[2024-10-31] MEDS ORDERED: MOM 30ML SUSPENSION UDC PO PRN (02:50)
[2024-10-31] MEDS: SYMBICORT 160/4.5MCG INHALER 6GM INH SCH (08:05)
[2024-10-31] MEDS: APIXABAN 2.5 MG TAB PO SCH (09:07)
[2024-10-31] MEDS: ACETAMINOPHEN 325 MG TAB PO SCH (09:07)
[2024-10-31] MEDS: PANTOPRAZOLE 40MG TAB PO SCH (09:07)
[2024-10-31] MEDS: bisoproloL fumarate 5 MG TAB PO SCH (09:08)
[2024-10-31] MEDS: ASPIRIN 81MG ENTERIC TABLET PO SCH (09:08)
[2024-10-31] MEDS: EZETIMIBE 10MG TABLET PO SCH (11:45)
[2024-10-31] MEDS: PROCTOFOAM-HC 1% FOAM 10GM CAN PR SCH (11:45)
[2024-10-31] MEDS: HYDROCORTISONE 1% OINTMENT 30GM TOP SCH (11:45)
[2024-10-31] MEDS: NS (Normal Saline) 0.9% 1,000 ML IV ONE (15:51)
[2024-10-31 16:10] VITALS: BP 99/62; TEMP 97.5; O2SAT 96
[2024-10-31 20:00] VITALS: BP 105/61; TEMP 98.2; O2SAT 95
[2024-10-31] MEDS: zolPIDEM TARTRATE 5 MG TAB PO SCH (20:55)
[2024-10-31] MEDS: MIRTAZAPINE 15 MG TAB PO SCH (20:57)
[2024-10-31] MEDS: MONTELUKAST 10 MG TAB PO SCH (21:00)
[2024-10-31] MEDS: ATORVASTATIN 20 MG TAB PO SCH (21:00)
[2024-11-01 04:00] VITALS: BP 113/61; TEMP 98.2; O2SAT 94
[2024-11-01 12:00] VITALS: BP 121/71; TEMP 98.6; O2SAT 94
[2024-11-01] MEDS ORDERED: PROCTOFOAM-HC 1% FOAM 10GM CAN PR PRN (16:40)
[2024-11-01 19:35] VITALS: BP 128/84; TEMP 98.2; O2SAT 95
[2024-11-02] MEDS: diphenhydrAMINE 50MG/ML VIAL IV PRN (00:53)
[2024-11-02 03:37] VITALS: BP 115/73; TEMP 97.7; O2SAT 96
[2024-11-02 12:00] VITALS: BP 114/74; TEMP 97.9; O2SAT 95
[2024-11-02 19:44] VITALS: BP 120/77; TEMP 97.9; O2SAT 96
[2024-11-02 20:00] VITALS: BP 120/77; TEMP 97.9; O2SAT 96
[2024-11-03 04:38] VITALS: BP 128/84; TEMP 97.9; O2SAT 95
[2024-11-03 08:00] VITALS: BP 105/68; TEMP 98.1; O2SAT 92
[2024-11-03 13:06] LABS: HEMOGLOBIN 13.2 g/dl (13.5-17.5); MEAN CORPUSCULAR HEMOGLOBIN 24.3 pg (27.0-33.0); MEAN CORPUSCULAR HGB CONC 32.2 g/dl (32.0-36.5); MEAN CORPUSCULAR VOLUME 75.4 fl (80.0-96.0); PLATELET COUNT, AUTOMATED 272 10^3/uL (150-450); RED BLOOD COUNT 5.44 10^6/uL (4.30-6.10); WHITE BLOOD COUNT 9.9 10^3/uL (4.0-10.0)
[2024-11-03 13:39] LABS: BLOOD UREA NITROGEN 19 MG/DL (9-23); CALCIUM LEVEL 8.6 MG/DL (8.3-10.6); CARBON DIOXIDE LEVEL 22 MMOL/L (20-31); CHLORIDE LEVEL 104 MMOL/L (98-107); GLOMERULAR FILTRATION RATE > 90.0 (>42); GLUCOSE, FASTING 119 MG/DL (74-106); SODIUM LEVEL 136 MMOL/L (136-145)
[2024-11-04 04:27] VITALS: BP 116/72; TEMP 97.2; O2SAT 96
[2024-11-04 09:28] VITALS: BP 129/76
[2024-11-04] MEDS ORDERED: LEVO75TAB PO (17:52)
[2024-11-04] MEDS ORDERED: PANT-23 PO (22:09)
[2024-11-05] MEDS ORDERED: AZIT-12 PO (07:58)
[2024-11-05] MEDS ORDERED: CEFD300CAP PO (07:58)
[2024-11-05] MEDS ORDERED: BACI1CAP PO (07:58)
[2024-11-05] MEDS ORDERED: MIDO10TA3 PO (07:59)
[2024-11-05] MEDS ORDERED: PRED10TA2 PO (08:02)
[2024-11-05] MEDS ORDERED: MUCI1TAB16 PO (08:02)
[2024-11-05] MEDS ORDERED: COMBAER6 INH (08:03)
== END 2024-11-04 12:55 ==
LOC: M ED 16:30 → INTOOBSV 16:31 → M ED INP 16:31 → UNDOADMIN 10-31 14:23 → M MS5PR 10-31 16:12 → M ED INP 10-31 16:12
PROVIDERS: ADMIT Student in an Organized Health Care Education/Training Program; ATTEND General Practice
DX: K62.7 Radiation proctitis (principal); Z85.46 Personal history of malignant neoplasm of prostate; Z90.79 Acquired absence of other genital organ(s); I95.9 Hypotension, unspecified; E86.1 Hypovolemia; R45.6 Violent behavior; K64.9 Unspecified hemorrhoids; K62.5 Hemorrhage of anus and rectum; I69.351 Hemiplegia and hemiparesis following cerebral infarction affecting right dominant side; R26.81 Unsteadiness on feet; J98.11 Atelectasis; J90 Pleural effusion, not elsewhere classified; Z74.1 Need for assistance with personal care; R94.31 Abnormal electrocardiogram [ECG] [EKG]; R53.1 Weakness; D83.9 Common variable immunodeficiency, unspecified; I48.0 Paroxysmal atrial fibrillation; I69.392 Facial weakness following cerebral infarction; I69.328 Other speech and language deficits following cerebral infarction; I69.391 Dysphagia following cerebral infarction; I10 Essential (primary) hypertension; E78.5 Hyperlipidemia, unspecified; I25.10 Atherosclerotic heart disease of native coronary artery without angina pectoris; I25.2 Old myocardial infarction; R56.9 Unspecified convulsions; K21.9 Gastro-esophageal reflux disease without esophagitis; Z86.718 Personal history of other venous thrombosis and embolism; Z93.1 Gastrostomy status; Z90.49 Acquired absence of other specified parts of digestive tract; Z87.891 Personal history of nicotine dependence; Z88.1 Allergy status to other antibiotic agents; Z88.5 Allergy status to narcotic agent; Z79.899 Other long term (current) drug therapy; Z79.01 Long term (current) use of anticoagulants; Z79.82 Long term (current) use of aspirin
CPT/HCPCS: 36415; 71045; 80047; 80048; 80076; 82150; 83690; 85025; 85027; 85610; 85730; 86140; 86850; 86900; 86901; 92610; 93005; 93041; 94640; 96374; 96376; 97161; 97530; 99285; G0378; J1200

== ENCOUNTER 2024-11-04 14:15 | Emergency (ER) | payer MEDICARE ==
[~2024-11-04] VITALS: Ht 162.6 cm; Wt 68.6 kg
[~2024-11-04 14:15] MED LIST changes: +APAP325T4 PO; +CARB15DR33 OU; +ESOM20CA2 PO; +HYDR28OI7 TP; +MIRT-88 PO
[2024-11-04] MEDS ORDERED: ACETAMINOPHEN 650MG SUPP PR ONE (14:30)
[2024-11-04] MEDS: LIDOCAINE 2% 5ML JELLY UROJET TOP ONE (14:30)
[2024-11-04 15:02] LABS: BASO % 0.1 % (0.0-1.0); EOS # 0.1 10^3/uL (0.0-0.5); EOS % 1.2 % (0.0-3.0); HEMATOCRIT 39.5 % (42.0-52.0); HEMOGLOBIN 12.6 g/dl (13.5-17.5); LYMPH % 10.3 % (24.0-44.0); MEAN CORPUSCULAR HEMOGLOBIN 24.1 pg (27.0-33.0); MEAN CORPUSCULAR HGB CONC 31.9 g/dl (32.0-36.5); MEAN CORPUSCULAR VOLUME 75.7 fl (80.0-96.0); MONO # 0.9 10^3/uL (0.0-0.8); MONO % 8.4 % (2.0-8.0); NEUTROPHILS % 79.6 % (36.0-66.0); PLATELET COUNT, AUTOMATED 279 10^3/uL (150-450); RED BLOOD COUNT 5.22 10^6/uL (4.30-6.10); WHITE BLOOD COUNT 10.1 10^3/uL (4.0-10.0)
[2024-11-04 15:06] LABS: KETONE, URINE AUTO RFX 1+ mg/dL (NEGATIVE); LEUKOCYTE ESTERASE UR AUTO RFX NEGATIVE (NEGATIVE); MUCUS, URINE RFX LARGE (NEGATIVE); NITRITE, URINE AUTO RFX NEGATIVE (NEGATIVE); RBC, URINE AUTO RFX 5 /HPF (0-3); SQUAM EPITHELIAL CELL UR AURFX 0 /HPF (0-6); WBC, URINE AUTO RFX 4 /HPF (0-3)
[2024-11-04 15:35] LABS: ALBUMIN 2.8 G/DL (3.2-5.2); ALKALINE PHOSPHATASE 81 U/L (40-129); ALT/SGPT 18 U/L (7.0-40); AST/SGOT 28 U/L (<34); BILIRUBIN,DIRECT 0.5 MG/DL (<0.4); BILIRUBIN,TOTAL 1.1 MG/DL (0.3-1.2); BLOOD UREA NITROGEN 18 MG/DL (9-23); CALCIUM LEVEL 8.4 MG/DL (8.3-10.6); CARBON DIOXIDE LEVEL 23 MMOL/L (20-31); CHLORIDE LEVEL 102 MMOL/L (98-107); CREATININE FOR GFR 0.61 MG/DL (0.70-1.30); GLOMERULAR FILTRATION RATE > 90.0 (>42); GLUCOSE, FASTING 142 MG/DL (74-106); POTASSIUM SERUM 3.7 MMOL/L (3.5-5.1); SODIUM LEVEL 136 MMOL/L (136-145); TOTAL PROTEIN 6.2 G/DL (5.7-8.2)
[2024-11-04] MEDS: ACETAMINOPHEN *IV* 1,000 MG in IV 1 EA IV ONE (15:42)
[2024-11-04 15:47] LABS: PROCALCITONIN 0.23 ng/ml
[2024-11-04 16:08] LABS: C REACTIVE PROTEIN QUANTITATIV 16.39 MG/DL (<1.0)
[2024-11-04] MEDS ORDERED: LevoFLOXacin IV 750 MG in IV 1 EA IV ONE (16:40)
[2024-11-04] MEDS: LevoFLOXacin 750 MG TABLET PO ONE (17:38)
[2024-11-04] MEDS ORDERED: LEVO75TAB PO (17:52)
[2024-11-04] MEDS ORDERED: MED REC IN PROGRESS XX SCH (21:25)
[2024-11-04] MEDS ORDERED: ACETAMINOPHEN 325MG/10.15ML UDC PEG PRN (22:00)
[2024-11-04] MEDS ORDERED: PANT-23 PO (22:09)
[2024-11-04] MEDS ORDERED: HOME MED LIST COMPLETE! XX SCH (22:15)
[2024-11-04] MEDS: MIRTAZAPINE 15 MG TAB PO SCH (22:55)
[2024-11-04] MEDS: MONTELUKAST 10 MG TAB PO SCH (22:55)
[2024-11-04] MEDS: AZITHROMYCIN 250MG TABLET PEG SCH (22:55)
[2024-11-04] MEDS: predniSONE 20 MG TAB PEG SCH (22:55)
[2024-11-04] MEDS: APIXABAN 2.5 MG TAB PO SCH (22:56)
[2024-11-04] MEDS: LR 1,000 ML IV SCH (22:56)
[2024-11-04] MEDS: ATORVASTATIN 20 MG TAB PO SCH (22:56)
[2024-11-05 06:15] VITALS: TEMP 98.9
[2024-11-05] MEDS ORDERED: AZIT-12 PO (07:58)
[2024-11-05] MEDS ORDERED: BACI1CAP PO (07:58)
[2024-11-05] MEDS ORDERED: CEFD300CAP PO (07:58)
[2024-11-05] MEDS ORDERED: MIDO10TA3 PO (07:59)
[2024-11-05] MEDS ORDERED: PRED10TA2 PO (08:02)
[2024-11-05] MEDS ORDERED: MUCI1TAB16 PO (08:02)
[2024-11-05] MEDS ORDERED: COMBAER6 INH (08:03)
[2024-11-05] MEDS: guaiFENesin ER TABLET 600 MG TAB PO ONE (08:30)
[2024-11-05] MEDS: ASPIRIN 81MG ENTERIC TABLET PO SCH (08:53)
[2024-11-05] MEDS: PANTOPRAZOLE 40MG TAB PO SCH (08:53)
[2024-11-05] MEDS: predniSONE 20 MG TAB PO ONE (08:53)
[2024-11-05] MEDS: MONTELUKAST 10 MG TAB PO SCH (08:53)
[2024-11-05] MEDS: CEFDINIR 300 MG CAP PO SCH (08:53)
[2024-11-05] MEDS: ACETAMINOPHEN 500 MG TAB PO ONE (08:54)
[2024-11-05] MEDS: MIDODRINE 5 MG TAB PO ONE (08:54)
[2024-11-05] MEDS ORDERED: bisoproloL fumarate 5 MG TAB PO SCH (09:00)
[2024-11-05] MEDS ORDERED: HYDROCORTISONE 1% OINTMENT 30GM TOP SCH (09:00)
[2024-11-05] MEDS ORDERED: EZETIMIBE 10MG TABLET PO SCH (09:00)
[2024-11-05] MEDS: SYMBICORT 160/4.5MCG INHALER 6GM INH SCH (09:04)
[2024-11-05] MEDS: IPRATROPIUM 0.5MG/ALBUTEROL 2.5MG INH SOL UD 3ML NEB ONE (09:04)
[2024-11-05 09:45] VITALS: BP 113/55; O2SAT 91
== END 2024-11-05 10:16 | disposition home or self-care (01) ==
LOC: M ED 14:15 → EDBD 14:15 → M ED 11-05 10:16
DX: U07.1 COVID-19 (principal); B97.81 Human metapneumovirus as the cause of diseases classified elsewhere; K62.7 Radiation proctitis; I95.9 Hypotension, unspecified; E86.1 Hypovolemia; R45.6 Violent behavior; K64.9 Unspecified hemorrhoids; K62.5 Hemorrhage of anus and rectum; I69.351 Hemiplegia and hemiparesis following cerebral infarction affecting right dominant side; R26.81 Unsteadiness on feet; J98.11 Atelectasis; J90 Pleural effusion, not elsewhere classified; Z74.1 Need for assistance with personal care; R94.31 Abnormal electrocardiogram [ECG] [EKG]; R53.1 Weakness; D83.9 Common variable immunodeficiency, unspecified; I48.0 Paroxysmal atrial fibrillation; I69.392 Facial weakness following cerebral infarction; I69.328 Other speech and language deficits following cerebral infarction; I69.391 Dysphagia following cerebral infarction; I10 Essential (primary) hypertension; E78.5 Hyperlipidemia, unspecified; I25.10 Atherosclerotic heart disease of native coronary artery without angina pectoris; I25.2 Old myocardial infarction; R56.9 Unspecified convulsions; K21.9 Gastro-esophageal reflux disease without esophagitis; Z85.46 Personal history of malignant neoplasm of prostate; Z90.79 Acquired absence of other genital organ(s); Z86.718 Personal history of other venous thrombosis and embolism; Z93.1 Gastrostomy status; Z90.49 Acquired absence of other specified parts of digestive tract; Z87.891 Personal history of nicotine dependence; Z88.1 Allergy status to other antibiotic agents; Z88.5 Allergy status to narcotic agent; Z79.899 Other long term (current) drug therapy; Z79.01 Long term (current) use of anticoagulants; Z79.82 Long term (current) use of aspirin
CPT/HCPCS: 51701; 71045; 80048; 80076; 81001; 83605; 84145; 85025; 87040; 87426; 87486; 87581; 87633; 87798; 93005; 93041; 94640; 94664; 94760; 96365; 96366; 99285; J0131; J7512

== ENCOUNTER → 2025-04-15 | Outpatient (REF) | payer MEDICARE ==
[~2025-04-15] MED LIST changes: +AZIT-12 PO; +BACI1CAP PO; +CEFD300CAP PO; +COMBAER6 INH; -EZET10TA21 PEG; -EZET10TA21 PO; +EZET10TA57 PEG; +EZET10TA57 PO; -IBUP-1022 PO; +IBUP600T42 PO; +MIDO10TA3 PO; +MUCI1TAB16 PO; +PANT-23 PO; +PRED10TA2 PO; +ZOLP10TA11 PO; -ZOLP10TA2 PO
[2025-04-15 09:23] LABS: PLATELET COUNT, AUTOMATED 275 10^3/uL (150-450)
[2025-04-15 10:00] LABS: CALCIUM LEVEL 8.6 MG/DL (8.3-10.6); CARBON DIOXIDE LEVEL 28 MMOL/L (20-31); CHLORIDE LEVEL 104 MMOL/L (98-107); CHOLESTEROL LEVEL 153 MG/DL (<200); CHOLESTEROL RISK RATIO 3.10 (<5); CREATININE FOR GFR 0.72 MG/DL (0.70-1.30); GLOMERULAR FILTRATION RATE > 90.0 (>42); LDL CHOLESTEROL 91.0 MG/DL (<100); NON-HDL-C 103.8 MG/DL; POTASSIUM SERUM 3.7 MMOL/L (3.5-5.1); PSA SCREENING 0.04 NG/ML (< 4.00); SODIUM LEVEL 141 MMOL/L (136-145); TRIGLYCERIDES LEVEL 64 MG/DL (<150)
[2025-04-15 10:03] LABS: ESTIMATED AVERAGE GLUCOSE 114.0 MG/DL (60-110)
== END ==
LOC: SKLAB4 07:00
PROVIDERS: ATTEND Family Medicine
DX: E78.5 Hyperlipidemia, unspecified (principal); N18.9 Chronic kidney disease, unspecified; D64.9 Anemia, unspecified; Z79.899 Other long term (current) drug therapy; Z12.5 Encounter for screening for malignant neoplasm of prostate
CPT/HCPCS: 36415; 80048; 80061; 83036; 84443; 85027; G0103

== ENCOUNTER → 2025-06-14 | Outpatient (REF) ==
[~2025-06-14] MED LIST changes: +HYDR28OI10 TP; -HYDR28OI7 TP
== END ==
LOC: SKLAB4 14:30
PROVIDERS: ATTEND Nurse Practitioner Women's Health
DX: R11.0 Nausea (principal); R19.7 Diarrhea, unspecified

== ENCOUNTER → 2025-06-15 | Outpatient (REF) | payer MEDICARE ==
[2025-06-15 09:33] LABS: BASO # 0.0 10^3/uL (0.0-0.2); BASO % 0.6 % (0.0-1.0); EOS # 0.4 10^3/uL (0.0-0.5); EOS % 6.3 % (0.0-3.0); LYMPH # 1.1 10^3/uL (1.5-5.0); LYMPH % 16.0 % (24.0-44.0); MONO # 0.6 10^3/uL (0.0-0.8); MONO % 8.7 % (2.0-8.0); NEUTROPHILS # 4.6 10^3/uL (1.5-8.5); NEUTROPHILS % 68.1 % (36.0-66.0); PLATELET COUNT, AUTOMATED 282 10^3/uL (150-450)
[2025-06-15 09:56] LABS: CALCIUM LEVEL 8.6 MG/DL (8.3-10.6); CARBON DIOXIDE LEVEL 28 MMOL/L (20-31); CHLORIDE LEVEL 109 MMOL/L (98-107); CREATININE FOR GFR 0.74 MG/DL (0.70-1.30); GLOMERULAR FILTRATION RATE > 90.0 (>42); POTASSIUM SERUM 3.9 MMOL/L (3.5-5.1); SODIUM LEVEL 146 MMOL/L (136-145)
== END ==
LOC: SKLAB4 08:38
PROVIDERS: ATTEND Family Medicine
DX: R19.7 Diarrhea, unspecified (principal); R11.0 Nausea

== ENCOUNTER → 2025-06-15 | Outpatient (REF) | payer MEDICARE | LOC: SKLAB4 15:01 | PROVIDERS: ATTEND Family Medicine | DX: R00.1 Bradycardia, unspecified (principal); R19.7 Diarrhea, unspecified; R11.0 Nausea ==

== ENCOUNTER → 2025-07-03 | Outpatient (REF) | payer MEDICARE ==
[2025-07-03 18:16] LABS: PLATELET COUNT, AUTOMATED 237 10^3/uL (150-450)
[2025-07-03 18:44] LABS: ALT/SGPT 13 U/L (7.0-40); AST/SGOT 21 U/L (<34); CALCIUM LEVEL 9.2 MG/DL (8.3-10.6); CARBON DIOXIDE LEVEL 28 MMOL/L (20-31); CHLORIDE LEVEL 105 MMOL/L (98-107); CREATININE FOR GFR 0.72 MG/DL (0.70-1.30); GLOMERULAR FILTRATION RATE > 90.0 (>42); POTASSIUM SERUM 3.6 MMOL/L (3.5-5.1); SODIUM LEVEL 142 MMOL/L (136-145)
== END ==
LOC: SKLAB4 07:00
PROVIDERS: ATTEND Nurse Practitioner Adult Health
DX: R41.82 Altered mental status, unspecified (principal)

== ENCOUNTER → 2025-07-04 | Outpatient (REF) | payer MEDICARE ==
[2025-07-04 13:46] LABS: APPEARANCE, URINE CLEAR (CLEAR); BACTERIA, URINE AUTO NEGATIVE (NEGATIVE); BILIRUBIN, URINE AUTO NEGATIVE (NEGATIVE); BLOOD, URINE BLOOD NEGATIVE (NEGATIVE); CALCIUM OXALATE CRYSTALS SMALL; GLUCOSE, URINE (UA) AUTO NEGATIVE (NEGATIVE); KETONE, URINE AUTO NEGATIVE (NEGATIVE); LEUKOCYTE ESTERASE, URINE AUTO NEGATIVE (NEGATIVE); MUCUS, URINE SMALL (NEGATIVE); NITRITE, URINE AUTO NEGATIVE (NEGATIVE); PROTEIN, URINE AUTO NEGATIVE (NEGATIVE); RBC, URINE AUTO 11 /HPF (0-3); SPECIFIC GRAVITY URINE AUTO 1.024 (1.002-1.035); SQUAMOUS EPITHELIAL CELL UR AU 0 /HPF (0-6); UROBILINOGEN, URINE AUTO 0.2 mg/dL (0.0-2.0); WBC, URINE AUTO 1 /HPF (0-3)
== END ==
LOC: SKLAB4 13:09
PROVIDERS: ATTEND Family Medicine
DX: R45.1 Restlessness and agitation (principal); Z79.899 Other long term (current) drug therapy